=== PATIENT | female | born 1960 | race Two or more races ===

== ENCOUNTER 2021-09-07 22:38 | Inpatient (IN) | payer OTHER, SELFPAY ==
[2021-09-07 23:45] VITALS: BP 136/74; PULSE 71; RESP 18; TEMP 36.4; O2SAT 97
--- NOTE | 2021-09-08 02:52 | PC.ADMIT ---
Patient was transferred from [facility]. Section 12a documentation states patient was hearing voices to kill herself and was walking into traffic. During admission interview patient denied walking into traffic, stated she had been hearing voices, but not with any commands. She further stated her depression and hopelessness derived from her spouse very recently passing. She further stated she was not currently experiencing AH, nor had the desire to kill herself anymore. Patient states now that she is somewhere that can help her, she is ready to move forward. She was cooperative and pleasant during the interview process. No other information is available at the time of this RN transcribing this note.
[2021-09-08 06:00] VITALS: BP 139/78; PULSE 74; RESP 18; TEMP 36.3; O2SAT 97
[2021-09-08 08:07] LABS: Alanine Aminotransferase 70 U/L (0-31); Albumin Level 4.3 g/dL (3.5-5.0); Alkaline Phosphatase 61 U/L (39-117); Anion Gap 16 (12-20); Aspartate Amino Transferase 52 U/L (5-31); Bilirubin Total 0.5 mg/dL (0.0-1.0); Blood Urea Nitrogen 30 mg/dL (9-16); Calcium 10.3 mg/dL (8.4-10.2); Carbon Dioxide 27 mmol/L (22-29); Chloride 99 mmol/L (96-108); Cholesterol 171 mg/dL; Estimated Glomerular Filt Rate 43; Glucose Fasting 103 mg/dL (60-99); HDL Cholesterol 49 mg/dL; LDL Cholesterol Calculated 80 mg/dl; Potassium 3.8 mmol/L (3.3-5.1); Sodium 138 mmol/L (135-145); Total Protein 7.7 g/dL (6.5-8.0); Triglycerides 210 mg/dL
[2021-09-08] MEDS: Omeprazole 20 MG CAPSULE.DR PO (10:41)
[2021-09-08] MEDS: lisinopriL 20 MG TABLET PO (10:41)
[2021-09-08] MEDS: Levothyroxine Sodium 50 MCG TABLET PO (10:41)
[2021-09-08] MEDS: metFORMIN HCl ER 750 MG TAB.ER.24H PO (10:44)
[2021-09-08] MEDS: Propranolol HCL LA 60 MG CAP.SA.24H PO (10:44)
[2021-09-08] MEDS: hydroCHLOROthiazide 25 MG TABLET PO (10:44)
[2021-09-08 10:45] VITALS: BP 127/75; PULSE 82
[2021-09-08] MEDS: OLANZapine ODT 10 MG TAB.RAPDIS TRANSLINGU (12:17)
[2021-09-08] MEDS: LORazepam 1 MG TABLET PO (13:56)
[2021-09-08 16:35] VITALS: BP 122/68; PULSE 69
--- NOTE | 2021-09-08 16:38 | P.HPPS_ITS ---
HPI Date of Service: 09/08/21 Chief Complaint: psychosis,suicisality - reportedly ran into oncom Sources of Information: patient interviewed, chart reviewed and crisis/core team assessment reviewed HPI Subjective Notes: Conditional Voluntary Healthcare Proxy: No Guardianship: No Medical Problems Affecting Mental Status: No Narrative: 61 yo female presents with agitation and threats to family to run into traffic. It is reported she attempted to do this and was restrained by the family. Pt reports hearing voices to suicide and not telling her therapist this. Met with pt today who reports voices are instructing her to suicide and she feels trapped here and wanting to run. Reports symptoms have been present for 3-4 weeks, when was ill and in hospital. She has been more forgetful, anxious, isolated and nervous- I feel lost , I feel stuck, mostly trapped . Reports sleep is poor, appetite is intact. Pt and family report that her on September 03. Family asks that pt be treated so she may attend husbands on Sunday 09/10. Pt placed on five minute checks and medications adjusted today. Per daughter's report to crisis pt has told family she cannot tolerate going to the and cannot control herself. Pt has not been taking her medications as directed and at times gets physically combative with the family when they attempt to assist her. Past Psychiatric History: IP: This is the first [facility]; Hx of [place] ~4 years ago with transfer to [place] OP: New referral to [facility]. Also, CHD SA: Denies Medical Evaluation Reviewed: Yes [facility] Medical History (Updated 09/08/21 @ 17:14 by Lu Kincaid, CONTENT STRATEGIST) Severe recurrent major depression w/psychotic features, mood-congruent Narrative: GERD HTN Graves Disease High Cholesterol Hyperthyroidism Psoriasis Diabetes Type II Mammogram-Hx L microcalcifications, right breast fibroademoma Headaches Vitamin D deficiency Narrative: Pt denies Family History: Denies Social History: Raised by parents in [place]. 13 siblings, 7 have , 3 sisters 3 brothers living To [place] age [age] years. on 09/03/21. Hx of one year of college-education major. 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 Substance History: Denies Trauma History: Denies Diagnostics Vital Signs (24Hr): Vital Signs - 24 hr 09/07/21 23:45 09/08/21 06:00 09/08/21 10:45 Temperature 97.6 F 97.4 F Pulse Rate 71 74 82 Respiratory Rate 18 18 Blood Pressure 136/74 139/78 127/75 Pulse Oximetry 97 97 09/08/21 16:35 Temperature Pulse Rate 69 Respiratory Rate Blood Pressure 122/68 Pulse Oximetry Labs Results: 09/08/21 07:28 Labs: Laboratory Results - last 48 hr 09/08/21 07:28 Sodium 138 Potassium 3.8 Chloride 99 Carbon Dioxide 27 Anion Gap 16 BUN 30 H Creatinine 1.26 Estim Creat Clear Calc TNP Estimated GFR 43 Fasting Glucose 103 H Calcium 10.3 H Total Bilirubin 0.5 AST 52 H ALT 70 H Alkaline Phosphatase 61 Total Protein 7.7 Albumin 4.3 Triglycerides 210 Cholesterol 171 LDL Cholesterol, Calc 80 HDL Cholesterol 49 Meds/Allergies Meds Home Medications Acetaminophen (Acetaminophen 325 Mg Tablet) 650 mg PO Q6H PRN PRN Reason: Pain, Mild (Pain Scale 1-3) Amitriptyline HCl (Amitriptyline Hcl 50 Mg Tablet) 50 mg PO BEDTIME [facility] Atorvastatin Calcium (Atorvastatin Calcium 20 Mg Tablet) 20 mg PO BEDTIME [facility] Benztropine Mesylate (Benztropine Mesylate 1 Mg Tablet) 1 mg PO BEDTIME [facility] Hydrochlorothiazide (Hydrochlorothiazide 25 Mg Tablet) 25 mg PO DAILY [facility] Last Admin: 09/08/21 10:44 Dose: 25 mg Documented by: Hydroxyzine HCl (Hydroxyzine Hcl 50 Mg Tablet) 50 mg PO Q8H PRN PRN Reason: Anxiety Levothyroxine Sodium (Levothyroxine Sodium 50 Mcg Tablet) 50 mcg PO DAILY@0600 [facility] Last Admin: 09/08/21 10:41 Dose: 50 mcg Documented by: Lisinopril (Lisinopril 20 Mg Tablet) 20 mg PO DAILY [facility]; Protocol Last Admin: 09/08/21 10:41 Dose: 20 mg Documented by: Lorazepam (Lorazepam 1 Mg Tablet) 1 mg PO TID PRN PRN Reason: anxiety, agitation Last Admin: 09/08/21 13:56 Dose: 1 mg Documented by: Melatonin (Melatonin 3 Mg Tablet) 9 mg PO BEDTIME PRN PRN Reason: Insomnia Metformin HCl (Metformin Hcl Er 750 Mg Tab.Er.24h) 750 mg PO DAILY [facility] Last Admin: 09/08/21 10:44 Dose: 750 mg Documented by: Omeprazole (Omeprazole 20 Mg Capsule.Dr) 20 mg PO DAILY@0630 [facility] Last Admin: 09/08/21 10:41 Dose: 20 mg Documented by: Propranolol HCl (Propranolol Hcl La 60 Mg Cap.Sa.24h) 60 mg PO DAILY [facility]; Protocol Last Admin: 09/08/21 10:44 Dose: 60 mg Documented by: Risperidone (Risperidone 2 Mg Tablet) 2 mg PO BEDTIME [facility] Allergies Allergies Allergy/AdvReac Type Severity Reaction Status Date / Time No Known Allergies Allergy Verified 09/07/21 14:51 Mental Status Exam Mental Status Exam Patient Appearance: Fatigued and Appropriate Patient Orientation: Person, Place and Situation Level of Consciousness: Restless and Alert Patient Behavior: Guarded, Talkative, Cooperative, Suspicious, Restless, Wandering, Anxious, Fatigued, Distractible, Confused, Isolative, Good Eye Contact and Impulsive Mood Description: Suspicious, Withdrawn, Constricted, Fearful, Anxious, Labile, Sad, Nervous and Apprehensive Affect Description: Labile Patient Cognition Impaired: Yes Ability to Follow Directions: Fair Speech Pattern: Clear (requires an urologist), Perseverating, Spontaneous Speech, Soft-Spoken, Delayed and Long Pauses Memory Description: Remote Impaired Hallucinations: Auditory and Command Delusions: Being Controlled, Paranoid Ideation and Present Perceptual Disturbances: Depersonalization, Derealization and Hallucinations Thought Process: Distracted, Rumination and Confusion Thought Content: positive for [place], positive for Circumstantial, positive for Perseveration, positive for Preoccupation, positive for Thought Blocking and positive for Suicidal Ideation Depressive Symptoms: Increased Anxiety, Insomnia, Diff. Making Decisions, Loss of Int. in Activity, Hopelessness, Unhappiness, Increased Fatigue, Thoughts of /Suicide, Loss of Energy and Difficulty Concentrating Abnormal Motor Activity Signs and Symptoms: Restlessness Judgement: Poor Assessment & Plan Assessment & Plan (1) Severe recurrent major depression w/psychotic features, mood-congruent: Status: Acute Code(s): F33.3 - Major depressive disorder, recurrent, severe with psychotic symptoms Plan 61 yo female, transfer from [facility] for increase in sx of psychosis-command voiced telling her to run into traffic with attempts reported by family to crisis team. Per family, pt off meds ~1 month as she ran out of prescriptions. Pt reports voices are still active and she still is being told to suicide. on September 03 and family wants pt treated so she may attend on 09/10. Discussed with family that pt is currently exhibiting acute psychotic sx with SI and we may need to rethink discharge on 09/10. Discussed helping pt to attend via zoom or face time. Family is willing to work with team on this. Plan: Continue current regime with the following changes. -Olanzapine 10 mg x 1 dose -Increase Risperdal to 2 mg HS -Lorazepam 1 mg tid prn anxiety -Labs: Vit D, A1C, B12, Folate, TSH -EKG -Continue to monitor sx, response to treatment Patient educated on: medication risk/benefits and therapeutic strategies Informed Consent: further education needed Reason for continued inpatient stay Substantial Risk for: harm to self, inability to function and rapid decompensation
[2021-09-08] MEDS: Atorvastatin Calcium 20 MG TABLET PO (20:16)
[2021-09-08] MEDS: Benztropine Mesylate 1 MG TABLET PO (20:16)
[2021-09-08] MEDS: Amitriptyline HCl 50 MG TABLET PO (20:16)
[2021-09-08] MEDS: Melatonin 3 MG TABLET 9 MG PO (20:17)
[2021-09-08] MEDS: risperiDONE 2 MG TABLET PO (20:17)
[2021-09-09] MEDS: Levothyroxine Sodium 50 MCG TABLET PO (06:15)
[2021-09-09] MEDS: Omeprazole 20 MG CAPSULE.DR PO (06:16)
[2021-09-09 08:01] LABS: Estimated Average Glucose 120 mg/dL; Hemoglobin A1c % 5.8 %
[2021-09-09 08:26] LABS: Thyroid Stimulating Hormone 7.84 uIU/mL (0.32-4.0)
[2021-09-09] MEDS: LORazepam 1 MG TABLET PO (09:10)
[2021-09-09] MEDS: lisinopriL 20 MG TABLET PO (09:10)
[2021-09-09 09:11] VITALS: BP 155/92; PULSE 131; RESP 18; TEMP 36.5; O2SAT 97
[2021-09-09] MEDS: Propranolol HCL LA 60 MG CAP.SA.24H PO (09:11)
[2021-09-09] MEDS: metFORMIN HCl ER 750 MG TAB.ER.24H PO (09:11)
[2021-09-09] MEDS: hydroCHLOROthiazide 25 MG TABLET PO (09:11)
--- NOTE | 2021-09-09 11:09 | P.CONHOSP_ITS ---
History of Present Illness Data of Consult Service Date: 09/09/21 Primary Care Provider: Shikha Jeronimo MD HPI 61 yo female with multiple medical history including hypothyroidism, DM, HLD, and depression who is currently admitted to the inpatient Psych unit for depression with threat to run into traffic. It is reported she attempted to do this and was restrained by the family. Pt reports hearing voices to suicide and not telling her therapist this. I should note that she is greiving her who just 5 days ago. She was cooperativ with my assessment and voices no acute medical issues. Review of Systems Review of Systems: Gen: no fever Resp: no sob, no cough CV: no chest, no GILL, no leg edema GI: No n/v, no abd pain Neuro: No confusion Psych: depressed, no SI Yes all other systems are reviewed and are negative [facility] Medical History (Updated 09/09/21 @ 11:58 by Slava Rodriguez MD) Diabetes GERD (gastroesophageal reflux disease) HLD (hyperlipidemia) HTN (hypertension) Hypothyroidism Severe recurrent major depression w/psychotic features, mood-congruent Family History (Updated 09/09/21 @ 11:59 by Slaav Rodriguez MD) Other HTN (hypertension) Social History Household Members: Children Housing: House Do you presently have visiting nurse or other home services: No Patient Tobacco Use Status: Never used Tobacco Smoked in Last 30 Days: No e-Cigarette/Vaping Use: Never Used Patient Interested in Nicotine Replacement: No Patient Given Instructions on How to Stop Smoking: No Second Hand Smoke Exposure: No Use of substances other than those prescribed or required for medical reasons: No Currently Displaying Signs/Symptoms of Drug Intoxication Withdrawal: No Have you been hit, kicked, punched, or otherwise hurt by someone within the past year? If so, by whom?: No Do you feel safe in your current relationship?: Yes Is there a partner from a previous relationship who is making you feel unsafe now?: No Are you made to feel afraid or neglected: No Evangelical Healthcare Practices: [employer] Advance Directives: No Advance Directives Information Provided: No Do you have thoughts of harming others: None Do you have a plan to hurt others: No Plan Recently lost weight without trying: No Eating poorly because of decreased appetite: No Nutrition Risks: No Nutritional Risk Meds Allergies Allergy/AdvReac Type Severity Reaction Status Date / Time No Known Allergies Allergy Verified 09/07/21 14:51 Active Medications: Current Medications Acetaminophen (Acetaminophen 325 Mg Tablet) 650 mg PO Q6H PRN PRN Reason: Pain, Mild (Pain Scale 1-3) Amitriptyline HCl (Amitriptyline Hcl 50 Mg Tablet) 50 mg PO BEDTIME [facility] Last Admin: 09/08/21 20:16 Dose: 50 mg Documented by: Atorvastatin Calcium (Atorvastatin Calcium 20 Mg Tablet) 20 mg PO BEDTIME [facility] Last Admin: 09/08/21 20:16 Dose: 20 mg Documented by: Benztropine Mesylate (Benztropine Mesylate 1 Mg Tablet) 1 mg PO BEDTIME [facility] Last Admin: 09/08/21 20:16 Dose: 1 mg Documented by: Hydrochlorothiazide (Hydrochlorothiazide 25 Mg Tablet) 25 mg PO DAILY [facility] Last Admin: 09/09/21 09:11 Dose: 25 mg Documented by: Hydroxyzine HCl (Hydroxyzine Hcl 50 Mg Tablet) 50 mg PO Q8H PRN PRN Reason: Anxiety Levothyroxine Sodium (Levothyroxine Sodium 50 Mcg Tablet) 50 mcg PO DAILY@0600 [facility] Last Admin: 09/09/21 06:15 Dose: 50 mcg Documented by: Lisinopril (Lisinopril 20 Mg Tablet) 20 mg PO DAILY [facility]; Protocol Last Admin: 09/09/21 09:10 Dose: 20 mg Documented by: Lorazepam (Lorazepam 1 Mg Tablet) 1 mg PO TID PRN PRN Reason: anxiety, agitation Last Admin: 09/09/21 09:10 Dose: 1 mg Documented by: Melatonin (Melatonin 3 Mg Tablet) 9 mg PO BEDTIME PRN PRN Reason: Insomnia Last Admin: 09/08/21 20:17 Dose: 9 mg Documented by: Metformin HCl (Metformin Hcl Er 750 Mg Tab.Er.24h) 750 mg PO DAILY [facility] Last Admin: 09/09/21 09:11 Dose: 750 mg Documented by: Omeprazole (Omeprazole 20 Mg Capsule.Dr) 20 mg PO DAILY@0630 [facility] Last Admin: 09/09/21 06:16 Dose: 20 mg Documented by: Propranolol HCl (Propranolol Hcl La 60 Mg Cap.Sa.24h) 60 mg PO DAILY [facility]; Protocol Last Admin: 09/09/21 09:11 Dose: 60 mg Documented by: Risperidone (Risperidone 2 Mg Tablet) 2 mg PO BEDTIME [facility] Last Admin: 09/08/21 20:17 Dose: 2 mg Documented by: Home Medications Medication Instructions Recorded Confirmed Last Taken Type amitriptyline 50 mg tablet 50 mg PO BEDTIME 09/08/21 09/08/21 Unknown History benztropine 1 mg tablet 1 mg PO BEDTIME 09/08/21 09/08/21 Unknown History hydroxyzine HCl 50 mg tablet 50 mg PO TID PRN 09/08/21 09/08/21 Unknown History levothyroxine 50 mcg tablet 50 mcg PO DAILY 09/08/21 09/08/21 Unknown History lisinopril 20 1 tab PO DAILY 09/08/21 09/08/21 Unknown History mg-hydrochlorothiazide 25 mg tablet metformin 750 mg tablet,extended 750 mg PO DAILY 09/08/21 09/08/21 Unknown History release 24 hr omeprazole 20 mg capsule,delayed 20 mg PO DAILY 09/08/21 09/08/21 Unknown History release propranolol 60 mg capsule,24 60 mg PO DAILY 09/08/21 09/08/21 Unknown History hr,extended release risperidone 1 mg tablet (Risperdal) 1 mg PO BEDTIME 09/08/21 09/08/21 Unknown History simvastatin 20 mg tablet 20 mg PO BEDTIME 09/08/21 09/08/21 Unknown History Physical Exam Vital Signs and Narrative: Vital Signs: Last Vital Signs Temp 97.7 F 09/09/21 09:11 Pulse 131 H 09/09/21 09:11 Resp 18 09/09/21 09:11 BP 155/92 H 09/09/21 09:11 Pulse Ox 97 09/09/21 09:11 Const: Other: Constitutional: Alert, in no distress, Mental Status: Oriented to person, place and time. Eyes: Pupils are equal, Ear, Nose and Throat: Ears and nose without eformities. Trachea midline. Respiratory: Clear to auscultation. No wheezing, rales or rhonchi. Cardiovascular: S1 S2 regular. No murmurs, rubs or gallops. Gastrointestinal: Abdomen soft, non-tender, non-distended. Normal bowel sounds.? Neurologic: Cranial nerves II-XII grossly intact. No focal neurological deficits. Moves all extremities spontaneously.? Skin: No rashes or lesions.? Musculoskeletal: No cyanosis or clubbing. Psychiatric: depressed mood Results Labs CBC and Chem 7: 09/08/21 07:28 Labs: Laboratory Results - last 24 hr 09/09/21 09/09/21 07:36 07:36 Estimat Average Glucose 120 Hemoglobin A1c % 5.8 TSH 7.84 H Assessment and Plan (1) HLD (hyperlipidemia): Status: Acute (2) GERD (gastroesophageal reflux disease): Status: Acute (3) Diabetes: Status: Acute (4) HTN (hypertension): Status: Acute (5) Severe recurrent major depression w/psychotic features, mood-congruent: Status: Acute Plan 61/F with HTN, HLD, diabetes, hypothyroidism and depression who is admitted to inpatient Psych due to depression with threat of self harm HTN--continue Lisinopril, Proprnolol and HCTZ Diabetes--continue Metfromin and SSI HLD--continue Lipitor Hypothyroidism--continue Levothryoxine, TSH is 7 check FT4 GERD--Omeprazole Depression--management per Psych Thanks for the consult, contact us for additional question, follow on PRN basis
[2021-09-09 11:55] LABS: Free T4 (Free Thyroxine) 1.09 ng/dL (0.71-1.85)
--- NOTE | 2021-09-09 15:36 | P.PNPSI_ITS ---
Subjective Subjective Date of Service: 09/09/21 Reason For Visit: psychosis,suicidality Healthcare Proxy: Yes Guardianship: No Medical Problems Affecting Mental Status: No Interim History: Lability, anger, confusion-wanting to harm others, wanting to harm room-mate. Met with pt, Baldemar Daily RN, nephew Betito. Pt is not feeling able to attend or observe 's on 09/10. Family will video tape the ceremony and it will be available in the future should she want to review it. Discussed with daughter who is accepting of her mother's decision. Pt feeling lost. She has been off meds for ~1 month as OP team put in a new computer system and pt did not get her refills. Medication Compliance: Yes Side effects from medications: No Attending Groups: No Review of Systems Acute medical concerns: No Medical Review of Systems: unchanged Mental Status Exam Mental Status Exam Patient Appearance: Fatigued and Appropriate Patient Orientation: Person, Place and Situation Level of Consciousness: Restless and Alert Patient Behavior: Guarded, Talkative, Cooperative, Suspicious, Restless, Wandering, Anxious, Fatigued, Distractible, Confused, Isolative, Good Eye Contact and Impulsive Mood Description: Suspicious, Withdrawn, Constricted, Fearful, Anxious, Labile, Sad, Nervous and Apprehensive Affect Description: Labile Patient Cognition Impaired: Yes Ability to Follow Directions: Fair Speech Pattern: Clear (requires an baker biscuit), Perseverating, Spontaneous Speech, Soft-Spoken, Delayed and Long Pauses Memory Description: Remote Impaired Hallucinations: Auditory and Command Delusions: Being Controlled, Paranoid Ideation and Present Perceptual Disturbances: Depersonalization, Derealization and Hallucinations Thought Process: Distracted, Rumination and Confusion Thought Content: positive for [place], positive for Circumstantial, positive for Perseveration, positive for Preoccupation, positive for Thought Blocking and positive for Suicidal Ideation Depressive Symptoms: Increased Anxiety, Insomnia, Diff. Making Decisions, Loss of Int. in Activity, Hopelessness, Unhappiness, Increased Fatigue, Thoughts of /Suicide, Loss of Energy and Difficulty Concentrating Abnormal Motor Activity Signs and Symptoms: Restlessness Judgement: Poor Diagnostics Vital Signs (24Hr): Vital Signs - 24 hr 09/08/21 16:35 09/09/21 09:11 Temperature 97.7 F Pulse Rate 69 131 H Respiratory Rate 18 Blood Pressure 122/68 155/92 H Pulse Oximetry 97 Labs Results: 09/08/21 07:28 Labs: Laboratory Results - last 48 hr 09/08/21 09/09/21 09/09/21 07:28 07:36 07:36 Sodium 138 Potassium 3.8 Chloride 99 Carbon Dioxide 27 Anion Gap 16 BUN 30 H Creatinine 1.26 Estim Creat Clear Calc TNP Estimated GFR 43 Fasting Glucose 103 H Estimat Average Glucose 120 Hemoglobin A1c % 5.8 Calcium 10.3 H Total Bilirubin 0.5 AST 52 H ALT 70 H Alkaline Phosphatase 61 Total Protein 7.7 Albumin 4.3 Triglycerides 210 Cholesterol 171 LDL Cholesterol, Calc 80 HDL Cholesterol 49 TSH 7.84 H Free T4 1.09 Medications Medications Current Medications Acetaminophen (Acetaminophen 325 Mg Tablet) 650 mg PO Q6H PRN PRN Reason: Pain, Mild (Pain Scale 1-3) Amitriptyline HCl (Amitriptyline Hcl 50 Mg Tablet) 50 mg PO BEDTIME [facility] Last Admin: 09/08/21 20:16 Dose: 50 mg Documented by: Atorvastatin Calcium (Atorvastatin Calcium 20 Mg Tablet) 20 mg PO BEDTIME [facility] Last Admin: 09/08/21 20:16 Dose: 20 mg Documented by: Benztropine Mesylate (Benztropine Mesylate 1 Mg Tablet) 1 mg PO BEDTIME [facility] Last Admin: 09/08/21 20:16 Dose: 1 mg Documented by: Hydrochlorothiazide (Hydrochlorothiazide 25 Mg Tablet) 25 mg PO DAILY [facility] Last Admin: 09/09/21 09:11 Dose: 25 mg Documented by: Hydroxyzine HCl (Hydroxyzine Hcl 50 Mg Tablet) 50 mg PO Q8H PRN PRN Reason: Anxiety Levothyroxine Sodium (Levothyroxine Sodium 50 Mcg Tablet) 50 mcg PO DAILY@0600 [facility] Last Admin: 09/09/21 06:15 Dose: 50 mcg Documented by: Lisinopril (Lisinopril 20 Mg Tablet) 20 mg PO DAILY [facility]; Protocol Last Admin: 09/09/21 09:10 Dose: 20 mg Documented by: Lorazepam (Lorazepam 1 Mg Tablet) 1 mg PO TID PRN PRN Reason: anxiety, agitation Last Admin: 09/09/21 09:10 Dose: 1 mg Documented by: Melatonin (Melatonin 3 Mg Tablet) 9 mg PO BEDTIME PRN PRN Reason: Insomnia Last Admin: 09/08/21 20:17 Dose: 9 mg Documented by: Metformin HCl (Metformin Hcl Er 750 Mg Tab.Er.24h) 750 mg PO DAILY [facility] Last Admin: 09/09/21 09:11 Dose: 750 mg Documented by: Omeprazole (Omeprazole 20 Mg Capsule.Dr) 20 mg PO DAILY@0630 [facility] Last Admin: 09/09/21 06:16 Dose: 20 mg Documented by: Propranolol HCl (Propranolol Hcl La 60 Mg Cap.Sa.24h) 60 mg PO DAILY [facility]; Protocol Last Admin: 09/09/21 09:11 Dose: 60 mg Documented by: Risperidone (Risperidone 2 Mg Tablet) 2 mg PO BEDTIME [facility] Last Admin: 09/08/21 20:17 Dose: 2 mg Documented by: Allergies Allergies Allergy/AdvReac Type Severity Reaction Status Date / Time No Known Allergies Allergy Verified 09/07/21 14:51 Assessment & Plan Assessment & Plan (1) HLD (hyperlipidemia): Status: Acute Code(s): E78.5 - Hyperlipidemia, unspecified (2) GERD (gastroesophageal reflux disease): Status: Acute Code(s): K21.9 - Gastro-esophageal reflux disease without esophagitis (3) Diabetes: Status: Acute Code(s): E11.9 - Type 2 diabetes mellitus without complications (4) HTN (hypertension): Status: Acute Code(s): I10 - Essential (primary) hypertension (5) Severe recurrent major depression w/psychotic features, mood-congruent: Status: Acute Code(s): F33.3 - Major depressive disorder, recurrent, severe with psychotic symptoms Plan 61/F with HTN, HLD, diabetes, hypothyroidism and depression who is admitted to inpatient Psych due to depression with threat of self harm HTN--continue Lisinopril, Proprnolol and HCTZ Diabetes--continue Metfromin and SSI HLD--continue Lipitor Hypothyroidism--continue Levothryoxine, TSH is 7 check FT4 GERD--Omeprazole Depression--management per Psych Thanks for the consult, contact us for additional question, follow on PRN basis 09/09/21- continue current regime, continue to monitor. I spent minutes with the patient and/or on the patient floor today, greater than?50% of which was spent counseling/coordinating care. Patient educated on: therapeutic strategies Informed Consent: further education needed Reason for contiued inpatient stay Substantial Risk for: harm to self, harm to others, inability to function, rapid decompensation and med/psych decompensation
[2021-09-09 18:00] VITALS: BP 130/65; PULSE 70; TEMP 37.1
[2021-09-09] MEDS: Amitriptyline HCl 50 MG TABLET PO (21:44)
[2021-09-09] MEDS: risperiDONE 2 MG TABLET PO (21:44)
[2021-09-09] MEDS: Atorvastatin Calcium 20 MG TABLET PO (21:44)
[2021-09-09] MEDS: Melatonin 3 MG TABLET 9 MG PO (21:44)
[2021-09-09] MEDS: Benztropine Mesylate 1 MG TABLET PO (21:44)
[2021-09-09 23:44] LABS: Vitamin D 25-OH Total 33.4 ng/mL (>30)
[2021-09-10] MEDS: LORazepam 1 MG TABLET PO ×3 (01:16→21:01)
[2021-09-10] MEDS: Levothyroxine Sodium 50 MCG TABLET PO (06:49)
[2021-09-10] MEDS: Omeprazole 20 MG CAPSULE.DR PO (06:49)
[2021-09-10 08:08] LABS: Folate 7.7 ng/mL (> or = 4.0); Vitamin B12 199 pg/mL (200-900)
[2021-09-10] MEDS: lisinopriL 20 MG TABLET PO (08:31)
[2021-09-10] MEDS: Propranolol HCL LA 60 MG CAP.SA.24H PO (08:31)
[2021-09-10] MEDS: hydroCHLOROthiazide 25 MG TABLET PO (08:31)
[2021-09-10] MEDS: metFORMIN HCl ER 750 MG TAB.ER.24H PO (08:31)
[2021-09-10 08:34] VITALS: BP 150/70; PULSE 81; RESP 18; TEMP 36.9; O2SAT 100
[2021-09-10 18:00] VITALS: BP 122/84; PULSE 98; RESP 18; TEMP 36.2; O2SAT 100
--- NOTE | 2021-09-10 19:27 | P.PNPSI_ITS ---
Subjective Subjective Date of Service: 09/10/21 Reason For Visit: psychosis,suicidality Subjective Notes: Conditional Voluntary Healthcare Proxy: Yes Guardianship: No Medical Problems Affecting Mental Status: No Interim History: Visable in milieu. Working on word search puzzles. Calm, grieving. Family in this a.m. to assist her in getting dressed. They styled her hair in [place]. She has received several compliments where she smiles and is teary at times. Reports feeling overwhelmed, not knowing what to do. Responsive to support. Medication Compliance: Yes Side effects from medications: No Attending Groups: Intermittent Review of Systems Acute medical concerns: No Medical Review of Systems: unchanged Mental Status Exam Mental Status Exam Patient Appearance: Appropriate Patient Orientation: Person, Place, Time and Situation Level of Consciousness: Alert Patient Behavior: Appropriate and Good Eye Contact Mood Description: Depressed Affect Description: Flat Patient Cognition Impaired: No Ability to Follow Directions: Good Speech Pattern: Spontaneous Speech Memory Description: Intact Hallucinations: None Delusions: Not Present and Paranoid Ideation (mild) Perceptual Disturbances: Depersonalization and Derealization Thought Process: Rumination Thought Content: positive for Perseveration Depressive Symptoms: Diff. Making Decisions, Crying Spells, Unhappiness, Loss of Energy and Difficulty Concentrating Judgement: Fair Diagnostics Vital Signs (24Hr): Vital Signs - 24 hr 09/10/21 08:34 Temperature 98.5 F Pulse Rate 81 Respiratory Rate 18 Blood Pressure 150/70 H Pulse Oximetry 100 Labs Results: 09/08/21 07:28 Labs: Laboratory Results - last 48 hr 09/09/21 09/09/21 09/09/21 07:36 07:36 07:36 Estimat Average Glucose 120 Hemoglobin A1c % 5.8 Vitamin B12 199 L 25-OH Vitamin D Total 33.4 Folate 7.7 TSH 7.84 H Free T4 1.09 Medications Medications Current Medications Acetaminophen (Acetaminophen 325 Mg Tablet) 650 mg PO Q6H PRN PRN Reason: Pain, Mild (Pain Scale 1-3) Amitriptyline HCl (Amitriptyline Hcl 50 Mg Tablet) 50 mg PO BEDTIME [facility] Last Admin: 09/09/21 21:44 Dose: 50 mg Documented by: Atorvastatin Calcium (Atorvastatin Calcium 20 Mg Tablet) 20 mg PO BEDTIME [facility] Last Admin: 09/09/21 21:44 Dose: 20 mg Documented by: Benztropine Mesylate (Benztropine Mesylate 1 Mg Tablet) 1 mg PO BEDTIME [facility] Last Admin: 09/09/21 21:44 Dose: 1 mg Documented by: Hydrochlorothiazide (Hydrochlorothiazide 25 Mg Tablet) 25 mg PO DAILY [facility] Last Admin: 09/10/21 08:31 Dose: 25 mg Documented by: Hydroxyzine HCl (Hydroxyzine Hcl 50 Mg Tablet) 50 mg PO Q8H PRN PRN Reason: Anxiety Levothyroxine Sodium (Levothyroxine Sodium 50 Mcg Tablet) 50 mcg PO DAILY@0600 [facility] Last Admin: 09/10/21 06:49 Dose: 50 mcg Documented by: Lisinopril (Lisinopril 20 Mg Tablet) 20 mg PO DAILY [facility]; Protocol Last Admin: 09/10/21 08:31 Dose: 20 mg Documented by: Lorazepam (Lorazepam 1 Mg Tablet) 1 mg PO TID PRN PRN Reason: anxiety, agitation Last Admin: 09/10/21 14:10 Dose: 1 mg Documented by: Melatonin (Melatonin 3 Mg Tablet) 9 mg PO BEDTIME PRN PRN Reason: Insomnia Last Admin: 09/09/21 21:44 Dose: 9 mg Documented by: Metformin HCl (Metformin Hcl Er 750 Mg Tab.Er.24h) 750 mg PO DAILY [facility] Last Admin: 09/10/21 08:31 Dose: 750 mg Documented by: Omeprazole (Omeprazole 20 Mg Capsule.Dr) 20 mg PO DAILY@0630 [facility] Last Admin: 09/10/21 06:49 Dose: 20 mg Documented by: Propranolol HCl (Propranolol Hcl La 60 Mg Cap.Sa.24h) 60 mg PO DAILY [facility]; Protocol Last Admin: 09/10/21 08:31 Dose: 60 mg Documented by: Risperidone (Risperidone 2 Mg Tablet) 2 mg PO BEDTIME [facility] Last Admin: 09/09/21 21:44 Dose: 2 mg Documented by: Allergies Allergies Allergy/AdvReac Type Severity Reaction Status Date / Time No Known Allergies Allergy Verified 09/07/21 14:51 Assessment & Plan Assessment & Plan (1) HLD (hyperlipidemia): Status: Acute Code(s): E78.5 - Hyperlipidemia, unspecified (2) GERD (gastroesophageal reflux disease): Status: Acute Code(s): K21.9 - Gastro-esophageal reflux disease without esophagitis (3) Diabetes: Status: Acute Code(s): E11.9 - Type 2 diabetes mellitus without complications (4) HTN (hypertension): Status: Acute Code(s): I10 - Essential (primary) hypertension (5) Severe recurrent major depression w/psychotic features, mood-congruent: Status: Acute Code(s): F33.3 - Major depressive disorder, recurrent, severe with psychotic symptoms Plan 61/F with HTN, HLD, diabetes, hypothyroidism and depression who is admitted to inpatient Psych due to depression with threat of self harm HTN--continue Lisinopril, Proprnolol and HCTZ Diabetes--continue Metfromin and SSI HLD--continue Lipitor Hypothyroidism--continue Levothryoxine, TSH is 7 check FT4 GERD--Omeprazole Depression--management per Psych Thanks for the consult, contact us for additional question, follow on PRN basis 09/09/21- continue current regime, continue to monitor. 09/10/21- Continue to re-establish regime, support through recent loss, encourage family connections. I spent minutes with the patient and/or on the patient floor today, greater than?50% of which was spent counseling/coordinating care. Informed Consent: understands Reason for contiued inpatient stay Substantial Risk for: harm to self, harm to others, inability to function, rapid decompensation and med/psych decompensation
[2021-09-10] MEDS: Benztropine Mesylate 1 MG TABLET PO (21:02)
[2021-09-10] MEDS: Melatonin 3 MG TABLET 9 MG PO (21:02)
[2021-09-10] MEDS: Amitriptyline HCl 50 MG TABLET PO (21:02)
[2021-09-10] MEDS: Atorvastatin Calcium 20 MG TABLET PO (21:03)
[2021-09-10] MEDS: risperiDONE 2 MG TABLET PO (21:03)
[2021-09-11] MEDS: Levothyroxine Sodium 50 MCG TABLET PO (06:48)
[2021-09-11] MEDS: Omeprazole 20 MG CAPSULE.DR PO (06:48)
[2021-09-11 07:26] LABS: Glucose, Whole Blood 90 mg/dL (60-115)
[2021-09-11 08:30] VITALS: BP 131/72; PULSE 79; TEMP 35.8
[2021-09-11] MEDS: Propranolol HCL LA 60 MG CAP.SA.24H PO (09:15)
[2021-09-11] MEDS: lisinopriL 20 MG TABLET PO (09:15)
[2021-09-11] MEDS: hydroCHLOROthiazide 25 MG TABLET PO (09:15)
[2021-09-11] MEDS: metFORMIN HCl ER 750 MG TAB.ER.24H PO (09:15)
[2021-09-11] MEDS: LORazepam 1 MG TABLET PO ×2 (14:42→21:27)
[2021-09-11 16:53] LABS: Glucose, Whole Blood 130 mg/dL (60-115)
--- NOTE | 2021-09-11 17:25 | P.PNPSI_ITS ---
Subjective Subjective Date of Service: 09/11/21 Reason For Visit: psychosis,suicidality Subjective Notes: Conditional Voluntary Healthcare Proxy: Yes Guardianship: No Medical Problems Affecting Mental Status: Yes (elevated tsh-off meds ~6 weeks, re-established on admission) Interim History: Sharmila has improved. She is less defended, less fearful, less paranoid. Describes herself as being lost , scared . What will I do now that I do not have my .? Attempting to structure her time between rest, groups, word searches, meeting with team and family. States she plans to attempt an art project tomorrow. This all seems so unreal. Discussed wanting to go to daughter Philip' home upon discharge as she believes it will be initially easier than going home to her other daughters home where she and lived. Tolerating medication re-introduction Medication Compliance: Yes Side effects from medications: No Attending Groups: Intermittent Review of Systems Acute medical concerns: No Medical Review of Systems: unchanged Review of Systems Psychiatric: Reports anxiety, Reports depression, Reports difficulty concentrating, Reports hopelessness, Reports anhedonia and Reports suicidal ideation (denies) Mental Status Exam Mental Status Exam Patient Appearance: Appropriate Patient Orientation: Person, Place, Time and Situation Level of Consciousness: Alert Patient Behavior: Talkative, Cooperative, Good Eye Contact and Crying Mood Description: Depressed and Sad Affect Description: Flat Patient Cognition Impaired: No Ability to Follow Directions: Good Speech Pattern: Spontaneous Speech Memory Description: Episodic Impaired Hallucinations: None Delusions: Not Present Perceptual Disturbances: Depersonalization and Derealization Thought Process: Rumination Thought Content: positive for Perseveration Depressive Symptoms: Crying Spells, Hopelessness, Unhappiness and Difficulty Concentrating Judgement: Fair Diagnostics Vital Signs (24Hr): Vital Signs - 24 hr 09/10/21 18:00 09/11/21 08:30 Temperature 97.1 F 96.5 F L Pulse Rate 98 79 Respiratory Rate 18 Blood Pressure 122/84 131/72 Pulse Oximetry 100 Labs Results: 09/08/21 07:28 Labs: Laboratory Results - last 48 hr 09/09/21 09/09/21 09/11/21 07:36 07:36 06:52 POC Glucose 90 Vitamin B12 199 L 25-OH Vitamin D Total 33.4 Folate 7.7 09/11/21 16:47 POC Glucose 130 H Vitamin B12 25-OH Vitamin D Total Folate Medications Medications Current Medications Acetaminophen (Acetaminophen 325 Mg Tablet) 650 mg PO Q6H PRN PRN Reason: Pain, Mild (Pain Scale 1-3) Amitriptyline HCl (Amitriptyline Hcl 50 Mg Tablet) 50 mg PO BEDTIME [facility] Last Admin: 09/10/21 21:02 Dose: 50 mg Documented by: Atorvastatin Calcium (Atorvastatin Calcium 20 Mg Tablet) 20 mg PO BEDTIME [facility] Last Admin: 09/10/21 21:03 Dose: 20 mg Documented by: Benztropine Mesylate (Benztropine Mesylate 1 Mg Tablet) 1 mg PO BEDTIME [facility] Last Admin: 09/10/21 21:02 Dose: 1 mg Documented by: Hydrochlorothiazide (Hydrochlorothiazide 25 Mg Tablet) 25 mg PO DAILY [facility] Last Admin: 09/11/21 09:15 Dose: 25 mg Documented by: Hydroxyzine HCl (Hydroxyzine Hcl 50 Mg Tablet) 50 mg PO Q8H PRN PRN Reason: Anxiety Levothyroxine Sodium (Levothyroxine Sodium 50 Mcg Tablet) 50 mcg PO DAILY@0600 [facility] Last Admin: 09/11/21 06:48 Dose: 50 mcg Documented by: Lisinopril (Lisinopril 20 Mg Tablet) 20 mg PO DAILY [facility]; Protocol Last Admin: 09/11/21 09:15 Dose: 20 mg Documented by: Lorazepam (Lorazepam 1 Mg Tablet) 1 mg PO TID PRN PRN Reason: anxiety, agitation Last Admin: 09/11/21 14:42 Dose: 1 mg Documented by: Melatonin (Melatonin 3 Mg Tablet) 9 mg PO BEDTIME PRN PRN Reason: Insomnia Last Admin: 09/10/21 21:02 Dose: 9 mg Documented by: Metformin HCl (Metformin Hcl Er 750 Mg Tab.Er.24h) 750 mg PO DAILY [facility] Last Admin: 09/11/21 09:15 Dose: 750 mg Documented by: Omeprazole (Omeprazole 20 Mg Capsule.Dr) 20 mg PO DAILY@0630 [facility] Last Admin: 09/11/21 06:48 Dose: 20 mg Documented by: Propranolol HCl (Propranolol Hcl La 60 Mg Cap.Sa.24h) 60 mg PO DAILY [facility]; Protocol Last Admin: 09/11/21 09:15 Dose: 60 mg Documented by: Risperidone (Risperidone 2 Mg Tablet) 2 mg PO BEDTIME [facility] Last Admin: 09/10/21 21:03 Dose: 2 mg Documented by: Allergies Allergies Allergy/AdvReac Type Severity Reaction Status Date / Time No Known Allergies Allergy Verified 09/07/21 14:51 Assessment & Plan Assessment & Plan (1) HLD (hyperlipidemia): Status: Acute Code(s): E78.5 - Hyperlipidemia, unspecified (2) GERD (gastroesophageal reflux disease): Status: Acute Code(s): K21.9 - Gastro-esophageal reflux disease without esophagitis (3) Diabetes: Status: Acute Code(s): E11.9 - Type 2 diabetes mellitus without complications (4) HTN (hypertension): Status: Acute Code(s): I10 - Essential (primary) hypertension (5) Severe recurrent major depression w/psychotic features, mood-congruent: Status: Acute Code(s): F33.3 - Major depressive disorder, recurrent, severe with psychotic symptoms Plan 61/F with HTN, HLD, diabetes, hypothyroidism and depression who is admitted to inpatient Psych due to depression with threat of self harm HTN--continue Lisinopril, Proprnolol and HCTZ Diabetes--continue Metfromin and SSI HLD--continue Lipitor Hypothyroidism--continue Levothryoxine, TSH is 7 check FT4 GERD--Omeprazole Depression--management per Psych Thanks for the consult, contact us for additional question, follow on PRN basis 09/09/21- continue current regime, continue to monitor. 09/10/21- Continue to re-establish regime, support through recent loss, encourage family connections. 09/11/21- Improving, continute regime, support in transition back to her home and family. I spent minutes with the patient and/or on the patient floor today, greater than?50% of which was spent counseling/coordinating care. Patient educated on: medication risk/benefits Informed Consent: further education needed Reason for contiued inpatient stay Substantial Risk for: inability to function and rapid decompensation
[2021-09-11 18:00] VITALS: BP 124/72; PULSE 71; RESP 18; TEMP 37.4; O2SAT 100
[2021-09-11 20:34] LABS: Glucose, Whole Blood 125 mg/dL (60-115)
[2021-09-11] MEDS: Amitriptyline HCl 50 MG TABLET PO (21:25)
[2021-09-11] MEDS: Melatonin 3 MG TABLET 9 MG PO (21:25)
[2021-09-11] MEDS: risperiDONE 2 MG TABLET PO (21:25)
[2021-09-11] MEDS: Atorvastatin Calcium 20 MG TABLET PO (21:26)
[2021-09-11] MEDS: Benztropine Mesylate 1 MG TABLET PO (21:26)
[2021-09-12] MEDS: Levothyroxine Sodium 50 MCG TABLET PO (06:46)
[2021-09-12] MEDS: Omeprazole 20 MG CAPSULE.DR PO (06:47)
[2021-09-12 09:08] LABS: Glucose, Whole Blood 92 mg/dL (60-115)
[2021-09-12] MEDS: Propranolol HCL LA 60 MG CAP.SA.24H PO (09:37)
[2021-09-12] MEDS: hydroCHLOROthiazide 25 MG TABLET PO (09:37)
[2021-09-12] MEDS: metFORMIN HCl ER 750 MG TAB.ER.24H PO (09:37)
[2021-09-12] MEDS: lisinopriL 20 MG TABLET PO (09:37)
[2021-09-12 09:40] VITALS: BP 106/61; PULSE 85; RESP 18; TEMP 36.6; O2SAT 99
--- NOTE | 2021-09-12 16:14 | HO.PSYCHPN ---
Subjective Subjective Date of Service: 09/12/21 Reason For Visit: psychosis,suicidality Subjective Notes: Conditional Voluntary Healthcare Proxy: Yes Guardianship: No Medical Problems Affecting Mental Status: No Interim History: Tolerating medication re-titration. Grieving. Clear, alert, oriented, non-psychotic. Asking to go home. Has thought about what would be most helpful for her-she believes to stay with daughter Soheila and not return to the home where was yet. Pt and Soheila work together. Soheila is currently out of town and will return 09/13 when we will meet to discuss this as an option. Pt is improving, integrating what has occurred over the past few weeks. She is responding to support. Medication Compliance: Yes Side effects from medications: No Attending Groups: Intermittent Review of Systems Acute medical concerns: No Medical Review of Systems: unchanged Review of Systems Psychiatric: Reports anxiety, Reports depression, Reports difficulty concentrating and Reports suicidal ideation (denies) Mental Status Exam Mental Status Exam Patient Appearance: Appropriate Patient Orientation: Person, Place, Time and Situation Level of Consciousness: Alert Patient Behavior: Appropriate, Talkative, Good Eye Contact and Crying Mood Description: Depressed and Sad Affect Description: Flat Patient Cognition Impaired: No Ability to Follow Directions: Good Speech Pattern: Clear and Spontaneous Speech Memory Description: Intact Hallucinations: None Delusions: Not Present Thought Content: positive for Intact and positive for Suicidal Ideation (denies) Depressive Symptoms: Loss of Energy Judgement: Good Diagnostics Vital Signs (24Hr): Vital Signs - 24 hr 09/11/21 18:00 09/12/21 09:40 Temperature 99.3 F 97.8 F Pulse Rate 71 85 Respiratory Rate 18 18 Blood Pressure 124/72 106/61 Pulse Oximetry 100 99 Labs Results: 09/13/21 08:00 Labs: Laboratory Results - last 48 hr 09/11/21 09/11/21 09/11/21 06:52 16:47 20:29 POC Glucose 90 130 H 125 H 09/12/21 09:04 POC Glucose 92 Medications Medications Current Medications Acetaminophen (Acetaminophen 325 Mg Tablet) 650 mg PO Q6H PRN PRN Reason: Pain, Mild (Pain Scale 1-3) Amitriptyline HCl (Amitriptyline Hcl 50 Mg Tablet) 50 mg PO BEDTIME [facility] Last Admin: 09/11/21 21:25 Dose: 50 mg Documented by: Atorvastatin Calcium (Atorvastatin Calcium 20 Mg Tablet) 20 mg PO BEDTIME [facility] Last Admin: 09/11/21 21:26 Dose: 20 mg Documented by: Benztropine Mesylate (Benztropine Mesylate 1 Mg Tablet) 1 mg PO BEDTIME [facility] Last Admin: 09/11/21 21:26 Dose: 1 mg Documented by: Hydrochlorothiazide (Hydrochlorothiazide 25 Mg Tablet) 25 mg PO DAILY [facility] Last Admin: 09/12/21 09:37 Dose: 25 mg Documented by: Hydroxyzine HCl (Hydroxyzine Hcl 50 Mg Tablet) 50 mg PO Q8H PRN PRN Reason: Anxiety Levothyroxine Sodium (Levothyroxine Sodium 50 Mcg Tablet) 50 mcg PO DAILY@0600 [facility] Last Admin: 09/12/21 06:46 Dose: 50 mcg Documented by: Lisinopril (Lisinopril 20 Mg Tablet) 20 mg PO DAILY [facility]; Protocol Last Admin: 09/12/21 09:37 Dose: 20 mg Documented by: Lorazepam (Lorazepam 1 Mg Tablet) 1 mg PO TID PRN PRN Reason: anxiety, agitation Last Admin: 09/11/21 21:27 Dose: 1 mg Documented by: Melatonin (Melatonin 3 Mg Tablet) 9 mg PO BEDTIME PRN PRN Reason: Insomnia Last Admin: 09/11/21 21:25 Dose: 9 mg Documented by: Metformin HCl (Metformin Hcl Er 750 Mg Tab.Er.24h) 750 mg PO DAILY [facility] Last Admin: 09/12/21 09:37 Dose: 750 mg Documented by: Omeprazole (Omeprazole 20 Mg Capsule.Dr) 20 mg PO DAILY@0630 [facility] Last Admin: 09/12/21 06:47 Dose: 20 mg Documented by: Propranolol HCl (Propranolol Hcl La 60 Mg Cap.Sa.24h) 60 mg PO DAILY [facility]; Protocol Last Admin: 09/12/21 09:37 Dose: 60 mg Documented by: Risperidone (Risperidone 2 Mg Tablet) 2 mg PO BEDTIME [facility] Last Admin: 09/11/21 21:25 Dose: 2 mg Documented by: Allergies Allergies Allergy/AdvReac Type Severity Reaction Status Date / Time No Known Allergies Allergy Verified 09/07/21 14:51 Assessment & Plan Assessment & Plan (1) Severe recurrent major depression w/psychotic features, mood-congruent: Status: Acute Code(s): F33.3 - Major depressive disorder, recurrent, severe with psychotic symptoms Plan 61/F with HTN, HLD, diabetes, hypothyroidism and depression who is admitted to inpatient Psych due to depression with threat of self harm HTN--continue Lisinopril, Proprnolol and HCTZ Diabetes--continue Metfromin and SSI HLD--continue Lipitor Hypothyroidism--continue Levothryoxine, TSH is 7 check FT4 GERD--Omeprazole Depression--management per Psych Thanks for the consult, contact us for additional question, follow on PRN basis 09/09/21- continue current regime, continue to monitor. 09/10/21- Continue to re-establish regime, support through recent loss, encourage family connections. 09/12/21- Discharge planning. Continue current regime which pt is tolerating. I spent minutes with the patient and/or on the patient floor today, greater than?50% of which was spent counseling/coordinating care. Patient educated on: therapeutic strategies Informed Consent: understands and further education needed Reason for contiued inpatient stay Substantial Risk for: inability to function and rapid decompensation
[2021-09-12 19:00] VITALS: BP 109/55; PULSE 67; RESP 18; TEMP 35.8; O2SAT 96
[2021-09-12] MEDS: Melatonin 3 MG TABLET 9 MG PO (21:23)
[2021-09-12] MEDS: Benztropine Mesylate 1 MG TABLET PO (21:23)
[2021-09-12] MEDS: Amitriptyline HCl 50 MG TABLET PO (21:23)
[2021-09-12] MEDS: LORazepam 1 MG TABLET PO (21:23)
[2021-09-12] MEDS: Atorvastatin Calcium 20 MG TABLET PO (21:23)
[2021-09-12] MEDS: risperiDONE 2 MG TABLET PO (21:23)
[2021-09-12 21:44] LABS: Glucose, Whole Blood 137 mg/dL (60-115)
[2021-09-13] MEDS: Omeprazole 20 MG CAPSULE.DR PO (06:39)
[2021-09-13] MEDS: Levothyroxine Sodium 50 MCG TABLET PO (06:39)
[2021-09-13 06:43] LABS: Glucose, Whole Blood 100 mg/dL (60-115)
[2021-09-13] MEDS: hydroCHLOROthiazide 25 MG TABLET PO (08:18)
[2021-09-13] MEDS: metFORMIN HCl ER 750 MG TAB.ER.24H PO (08:18)
[2021-09-13] MEDS: lisinopriL 20 MG TABLET PO (08:18)
[2021-09-13] MEDS: Propranolol HCL LA 60 MG CAP.SA.24H PO (08:18)
[2021-09-13 08:20] VITALS: BP 123/67; PULSE 76; RESP 18; TEMP 36.2; O2SAT 99
[2021-09-13 09:12] LABS: Anion Gap 13 (12-20); Blood Urea Nitrogen 30 mg/dL (9-16); Calcium 10.3 mg/dL (8.4-10.2); Carbon Dioxide 30 mmol/L (22-29); Chloride 98 mmol/L (96-108); Estimated Glomerular Filt Rate 52; Glucose Random 90 mg/dL (60-115); Potassium 3.7 mmol/L (3.3-5.1); Sodium 137 mmol/L (135-145)
--- NOTE | 2021-09-13 17:44 | P.PNPSI_ITS ---
Subjective Subjective Date of Service: 09/13/21 Reason For Visit: psychosis,suicidality Subjective Notes: Conditional Voluntary Healthcare Proxy: Yes Guardianship: No Medical Problems Affecting Mental Status: No Interim History: Met with pt, daughter Soheila and family. Soheila agrees pt should live with her for a while. Both work together and Soheila believes this will be a good support for pt. Pt agrees. Review of med regime. No major changes from out pt, except Risperdal at 2 mg not 1 mg. Encouraged pt to stay at that dose until she sees out pt providers who know her, then begin taper and possibly have a prn available. Pt agrees, she is satisfied with this plan. She continues to grieve and describes this time as unreal for her and overwhelming. Discussed our availability to pt and family should discharge not work out. They verbalize understanding. Medication Compliance: Yes Side effects from medications: No Attending Groups: Intermittent Review of Systems Acute medical concerns: No Medical Review of Systems: unchanged Review of Systems Psychiatric: Reports anxiety, Reports depression, Reports difficulty concentrating and Reports suicidal ideation (denies) Mental Status Exam Mental Status Exam Patient Appearance: Appropriate Patient Orientation: Person, Place, Time and Situation Level of Consciousness: Alert Patient Behavior: Appropriate, Talkative, Good Eye Contact and Crying Mood Description: Depressed and Sad Affect Description: Flat Patient Cognition Impaired: No Ability to Follow Directions: Good Speech Pattern: Clear and Spontaneous Speech Memory Description: Intact Hallucinations: None Delusions: Not Present Thought Content: positive for Intact and positive for Suicidal Ideation (denies) Depressive Symptoms: Loss of Energy Judgement: Good Diagnostics Vital Signs (24Hr): Vital Signs - 24 hr 09/12/21 19:00 09/13/21 08:20 Temperature 96.5 F L 97.1 F Pulse Rate 67 76 Respiratory Rate 18 18 Blood Pressure 109/55 L 123/67 Pulse Oximetry 96 99 Labs Results: 09/13/21 08:00 Labs: Laboratory Results - last 48 hr 09/11/21 09/12/21 09/12/21 20:29 09:04 21:33 Sodium Potassium Chloride Carbon Dioxide Anion Gap BUN Creatinine Estim Creat Clear Calc Estimated GFR POC Glucose 125 H 92 137 H Random Glucose Calcium 09/13/21 09/13/21 06:37 08:00 Sodium 137 Potassium 3.7 Chloride 98 Carbon Dioxide 30 H Anion Gap 13 BUN 30 H Creatinine 1.07 Estim Creat Clear Calc TNP Estimated GFR 52 POC Glucose 100 Random Glucose 90 Calcium 10.3 H Medications Medications Current Medications Acetaminophen (Acetaminophen 325 Mg Tablet) 650 mg PO Q6H PRN PRN Reason: Pain, Mild (Pain Scale 1-3) Amitriptyline HCl (Amitriptyline Hcl 50 Mg Tablet) 50 mg PO BEDTIME [facility] Last Admin: 09/12/21 21:23 Dose: 50 mg Documented by: Atorvastatin Calcium (Atorvastatin Calcium 20 Mg Tablet) 20 mg PO BEDTIME [facility] Last Admin: 09/12/21 21:23 Dose: 20 mg Documented by: Benztropine Mesylate (Benztropine Mesylate 1 Mg Tablet) 1 mg PO BEDTIME [facility] Last Admin: 09/12/21 21:23 Dose: 1 mg Documented by: Hydrochlorothiazide (Hydrochlorothiazide 25 Mg Tablet) 25 mg PO DAILY [facility] Last Admin: 09/13/21 08:18 Dose: 25 mg Documented by: Hydroxyzine HCl (Hydroxyzine Hcl 50 Mg Tablet) 50 mg PO Q8H PRN PRN Reason: Anxiety Levothyroxine Sodium (Levothyroxine Sodium 50 Mcg Tablet) 50 mcg PO DAILY@0600 [facility] Last Admin: 09/13/21 06:39 Dose: 50 mcg Documented by: Lisinopril (Lisinopril 20 Mg Tablet) 20 mg PO DAILY [facility]; Protocol Last Admin: 09/13/21 08:18 Dose: 20 mg Documented by: Lorazepam (Lorazepam 1 Mg Tablet) 1 mg PO TID PRN PRN Reason: anxiety, agitation Last Admin: 09/12/21 21:23 Dose: 1 mg Documented by: Melatonin (Melatonin 3 Mg Tablet) 9 mg PO BEDTIME PRN PRN Reason: Insomnia Last Admin: 09/12/21 21:23 Dose: 9 mg Documented by: Metformin HCl (Metformin Hcl Er 750 Mg Tab.Er.24h) 750 mg PO DAILY [facility] Last Admin: 09/13/21 08:18 Dose: 750 mg Documented by: Omeprazole (Omeprazole 20 Mg Capsule.Dr) 20 mg PO DAILY@0630 [facility] Last Admin: 09/13/21 06:39 Dose: 20 mg Documented by: Propranolol HCl (Propranolol Hcl La 60 Mg Cap.Sa.24h) 60 mg PO DAILY [facility]; Protocol Last Admin: 09/13/21 08:18 Dose: 60 mg Documented by: Risperidone (Risperidone 2 Mg Tablet) 2 mg PO BEDTIME [facility] Last Admin: 09/12/21 21:23 Dose: 2 mg Documented by: Allergies Allergies Allergy/AdvReac Type Severity Reaction Status Date / Time No Known Allergies Allergy Verified 09/07/21 14:51 Assessment & Plan Assessment & Plan (1) Severe recurrent major depression w/psychotic features, mood-congruent: Status: Acute Code(s): F33.3 - Major depressive disorder, recurrent, severe with psychotic symptoms Assessment and Plan: 09/13/21- Discharge 09/14/21 with family. Plan 61/F with HTN, HLD, diabetes, hypothyroidism and depression who is admitted to inpatient Psych due to depression with threat of self harm HTN--continue Lisinopril, Proprnolol and HCTZ Diabetes--continue Metfromin and SSI HLD--continue Lipitor Hypothyroidism--continue Levothryoxine, TSH is 7 check FT4 GERD--Omeprazole Depression--management per Psych Thanks for the consult, contact us for additional question, follow on PRN basis 09/09/21- continue current regime, continue to monitor. 09/10/21- Continue to re-establish regime, support through recent loss, encourage family connections. 09/11/21- Improving, continute regime, support in transition back to her home and family. I spent minutes with the patient and/or on the patient floor today, greater than?50% of which was spent counseling/coordinating care. Patient educated on: medication risk/benefits and therapeutic strategies Guardian/Caregiver educated on: medication risk/benefits, therapeutic strategies and other Informed Consent: understands Reason for contiued inpatient stay Substantial Risk for: stable for discharge
[2021-09-13 18:00] VITALS: BP 116/74; PULSE 74
[2021-09-13] MEDS: risperiDONE 2 MG TABLET PO (19:36)
[2021-09-13] MEDS: Melatonin 3 MG TABLET 9 MG PO (19:36)
[2021-09-13] MEDS: Atorvastatin Calcium 20 MG TABLET PO (19:36)
[2021-09-13] MEDS: Amitriptyline HCl 50 MG TABLET PO (19:36)
[2021-09-13] MEDS: Benztropine Mesylate 1 MG TABLET PO (19:36)
[2021-09-14 06:10] VITALS: BP 106/54; PULSE 73; RESP 16; TEMP 36.2; O2SAT 95
[2021-09-14] MEDS: Levothyroxine Sodium 50 MCG TABLET PO (06:11)
[2021-09-14] MEDS: Omeprazole 20 MG CAPSULE.DR PO (06:11)
[2021-09-14 06:56] LABS: Glucose, Whole Blood 95 mg/dL (60-115)
[2021-09-14] MEDS: hydroCHLOROthiazide 25 MG TABLET PO (07:43)
[2021-09-14] MEDS: metFORMIN HCl ER 750 MG TAB.ER.24H PO (07:43)
[2021-09-14] MEDS: lisinopriL 20 MG TABLET PO (07:43)
[2021-09-14] MEDS: Propranolol HCL LA 60 MG CAP.SA.24H PO (07:44)
[2021-09-14 07:45] VITALS: BP 132/61; PULSE 73; RESP 18; TEMP 36.4; O2SAT 96
--- NOTE | 2021-09-14 09:43 | PM.PSYDC ---
DS: Providers Provider Date of Service: 09/14/21 Date of admission: 09/07/21 22:38 Date of discharge: 09/14/21 Primary care physician: Shikha Jeronimo MD Admitting clinician: Lu Kincaid Attending physician on admission: Lu Kincaid Consults: 09/07/21 15:02 Consult to Hospitalist Routine Consulting Provider: Hospitalist Reason For Exam: Trasfer from [facility] Attending physician on discharge: Lu Kincaid Discharging clinician: Lu Kincaid DS: Diagnosis Discharge Diagnosis (1) Severe recurrent major depression w/psychotic features, mood-congruent: Status: Acute DS: Medications Discharge Medications Home Medications: Previous Rx's Medication Instructions Recorded amitriptyline 50 mg tablet 50 mg PO BEDTIME #30 tab 09/14/21 benztropine 1 mg tablet 1 mg PO BEDTIME #30 tab 09/14/21 hydroxyzine HCl 50 mg tablet 50 mg PO TID PRN #30 tab 09/14/21 levothyroxine 50 mcg tablet 50 mcg PO DAILY #30 tab 09/14/21 lisinopril 20 1 tab PO DAILY #30 tab 09/14/21 mg-hydrochlorothiazide 25 mg tablet lorazepam 1 mg tablet 1 mg PO TID PRN #30 tab 09/14/21 melatonin 3 mg tablet 9 mg PO BEDTIME PRN #90 tab 09/14/21 metformin 750 mg tablet,extended 750 mg PO DAILY #30 tab 09/14/21 release 24 hr omeprazole 20 mg capsule,delayed 20 mg PO DAILY #30 cap 09/14/21 release propranolol 60 mg capsule,24 60 mg PO DAILY #30 cap 09/14/21 hr,extended release risperidone 2 mg tablet 2 mg PO BEDTIME #30 tab 09/14/21 simvastatin 20 mg tablet 20 mg PO BEDTIME #30 tab 09/14/21 Mental Status Exam Mental Status Exam Patient Appearance: Appropriate Patient Orientation: Person, Place, Time and Situation Level of Consciousness: Alert Patient Behavior: Appropriate, Talkative, Good Eye Contact and Crying Mood Description: Depressed and Sad Affect Description: Flat Patient Cognition Impaired: No Ability to Follow Directions: Good Speech Pattern: Clear and Spontaneous Speech Memory Description: Intact Hallucinations: None Delusions: Not Present Thought Content: positive for Intact and positive for Suicidal Ideation (denies) Depressive Symptoms: Loss of Energy Judgement: Good Data Data Completed and Pending Completed studies during hospitalization [Text1]: 09/08/21 09/09/21 09/09/21 07:28 07:36 07:36 Sodium 138 Potassium 3.8 Chloride 99 Carbon Dioxide 27 Anion Gap 16 BUN 30 H Creatinine 1.26 Estim Creat Clear Calc TNP Estimated GFR 43 POC Glucose Random Glucose Fasting Glucose 103 H Estimat Average Glucose 120 Hemoglobin A1c % 5.8 Calcium 10.3 H Total Bilirubin 0.5 AST 52 H ALT 70 H Alkaline Phosphatase 61 Total Protein 7.7 Albumin 4.3 Triglycerides 210 Cholesterol 171 LDL Cholesterol, Calc 80 HDL Cholesterol 49 Vitamin B12 199 L 25-OH Vitamin D Total Folate 7.7 TSH Free T4 09/09/21 09/11/21 09/11/21 07:36 06:52 16:47 Sodium Potassium Chloride Carbon Dioxide Anion Gap BUN Creatinine Estim Creat Clear Calc Estimated GFR POC Glucose 90 130 H Random Glucose Fasting Glucose Estimat Average Glucose Hemoglobin A1c % Calcium Total Bilirubin AST ALT Alkaline Phosphatase Total Protein Albumin Triglycerides Cholesterol LDL Cholesterol, Calc HDL Cholesterol Vitamin B12 25-OH Vitamin D Total 33.4 Folate TSH 7.84 H Free T4 1.09 09/11/21 09/12/21 09/12/21 20:29 09:04 21:33 Sodium Potassium Chloride Carbon Dioxide Anion Gap BUN Creatinine Estim Creat Clear Calc Estimated GFR POC Glucose 125 H 92 137 H Random Glucose Fasting Glucose Estimat Average Glucose Hemoglobin A1c % Calcium Total Bilirubin AST ALT Alkaline Phosphatase Total Protein Albumin Triglycerides Cholesterol LDL Cholesterol, Calc HDL Cholesterol Vitamin B12 25-OH Vitamin D Total Folate TSH Free T4 09/13/21 09/13/21 09/14/21 06:37 08:00 06:15 Sodium 137 Potassium 3.7 Chloride 98 Carbon Dioxide 30 H Anion Gap 13 BUN 30 H Creatinine 1.07 Estim Creat Clear Calc TNP Estimated GFR 52 POC Glucose 100 95 Random Glucose 90 Fasting Glucose Estimat Average Glucose Hemoglobin A1c % Calcium 10.3 H Total Bilirubin AST ALT Alkaline Phosphatase Total Protein Albumin Triglycerides Cholesterol LDL Cholesterol, Calc HDL Cholesterol Vitamin B12 25-OH Vitamin D Total Folate TSH Free T4 DS: Summary Hospital Course Hospital Course: Admission to adult psychiatry to address symptoms of recurrent major depression with psychosis and acute grief reaction. Pt and family report she was unable to obtain medication refills since the end of Jun 2021 from out pt provider. During this time she experienced significant psychosocial stress as her was terminally ill and on 09/04/21. Upon admission, she exhibited psychotic sx, she required one dose of Olanzapine and Risperdal was increased to 2 mg daily from 1 mg daily. Lorazepam was also added as a prn. Medical/psychiatric regime was re-established and Sharmila recompensated. She was unable to attend her 's as her symptoms were too acute and reported she did not feel stable enough to attend. Family was very supportive and Sharmila will plan to live with her daughter Soheila upon discharge. Time spent discussing smoking cessation with patient: 3 to 10 minutes Status at Discharge Functional status at discharge: independent ambulation Overall status at discharge: patient is progressing back to baseline Time Spent with Patient Time attestation: Total time spent providing and/or coordinating discharge services:40 Time spent: Greater than 30 minutes Discharge Plan Discharge Patient Disposition: Home, Self-Care Discharge Diagnosis: Recurrent Major Depression, Severe, with Psychosis Acute Grief Reaction Hyperlipidemia GERD Diabetes Hypertension Referrals: Therapy: Bonita Hernadez ([employer]) [Other] - 09/18/21 10:15 am (Telehealth ) Shikha Jeronimo MD [Primary Care Provider] - (Office will call you directly. ) Discharge Medications: New risperidone 2 mg Tablet 2 mg PO BEDTIME Qty: 30 0RF lorazepam 1 mg Tablet 1 mg PO TID PRN (Reason: anxiety, agitation) Qty: 30 0RF melatonin 3 mg Tablet 9 mg PO BEDTIME PRN (Reason: Insomnia) Qty: 90 0RF Continued propranolol 60 mg Capsule,Extended Release 24 Hr 60 mg PO DAILY Qty: 30 0RF hydroxyzine HCl 50 mg Tablet 50 mg PO TID PRN (Reason: Anxiety) Qty: 30 0RF amitriptyline 50 mg Tablet 50 mg PO BEDTIME Qty: 30 0RF levothyroxine 50 mcg Tablet 50 mcg PO DAILY Qty: 30 0RF Rx Instructions: take 1 tab M-F. Take 2 tabs on Sat and Sun simvastatin 20 mg Tablet 20 mg PO BEDTIME Qty: 30 0RF benztropine 1 mg Tablet 1 mg PO BEDTIME Qty: 30 0RF omeprazole 20 mg Capsule,Delayed Release(Dr/Ec) 20 mg PO DAILY Qty: 30 0RF lisinopril-hydrochlorothiazide 20-25 mg Tablet 1 tab PO DAILY Qty: 30 0RF metformin 750 mg Tablet Extended Release 24 Hr 750 mg PO DAILY Qty: 30 0RF Discontinued risperidone [Risperdal] 1 mg Tablet 1 mg PO BEDTIME 0RF Discharge Orders: Discharge Order (Routine); Ordered 09/14/21 Ordered By: Lu Kincaid Diet: advance to usual diet Activity on Discharge: As tolerated Stand Alone Forms: Patient Portal Discharge page, Community Support Care Plan Goals: Mood Stabilization Health Concerns: Recurrent Major Depression Acute Grief Reaction Hyperlipidemia GERD Diabetes Hypertension Plan of Treatment: Take medications as directed Attend follow up appointments Assessment: Pt with brighter affect, non labile. No SI/HI. No VH/AH. No signs of aggression towards self or others. Discharge Date/Time: 09/14/21 12:22
== END 2021-09-14 12:22 | disposition home or self-care (01) | DRG 751 ==
PROVIDERS: Internal Medicine; Student in an Organized Health Care Education/Training Program; Admitting Provider Psychiatry & Neurology Psychiatry; PCP Internal Medicine; Visit Provider Clinical Nurse Specialist Psychiatric/Mental Health, Adult
DX: F33.3 Major depressive disorder, recurrent, severe with psychotic symptoms (principal); R45.851 Suicidal ideations; E11.9 Type 2 diabetes mellitus without complications; E03.9 Hypothyroidism, unspecified; K21.9 Gastro-esophageal reflux disease without esophagitis; E78.5 Hyperlipidemia, unspecified; Z79.84 Long term (current) use of oral hypoglycemic drugs; Z79.890 Hormone replacement therapy; Z79.899 Other long term (current) drug therapy
CPT/HCPCS: 36415; 80048; 80053; 80061; 82306; 82607; 82746; 82947; 83036; 84439; 84443

== ENCOUNTER 2025-03-28 13:15 | Emergency (ER) | payer OTHER, SELFPAY ==
[2025-03-28 13:26] VITALS: BP 163/74; PULSE 90; RESP 16; TEMP 35.9; O2SAT 98; BMI 25.6
--- NOTE | 2025-03-28 13:26 | ED_ITS ---
HPI - General Adult General Chief complaint: Psychiatric Symptoms Stated complaint: Hallucinating, low bp, paranoid, [facility] request eval Time Seen by Provider: 03/28/25 14:04 Source: patient, family (daughters) and RN notes reviewed Mode of arrival: ambulatory History of Present Illness ED Provider: Siva HPI narrative: Patient is a 64-year-old female with history of severe recurrent major depression with psychotic features, dm, HTN, HLD, GERD presenting to the emergency department with daughters from [facility] for evaluation of recent confusion. Daughter states she noticed the confusion last week. Patient called her asking for the daughter to check her medications as patient felt she was not taking them correctly. When her daughter went to her house, her daughter noted that she had not been taking her medications correctly. Daughter states this is a typical presentation for patient when she is off her medications. Patient has reported vague suicidal ideation without a plan. She denies any homicidal ideation. She does report auditory and visual hallucinations. She denies any current physical complaints. Daughter reports patient has been stressed about bills and work recently. MD complaint: confusion Onset (ago): week(s) Related Data Home Medications ?Medication ?Instructions ?Recorded ?Confirmed amlodipine 2.5 mg-benazepril 10 mg 1 cap PO DAILY 08/1703/28/25 capsule benztropine 1 mg tablet 1 mg PO BEDTIME 03/28/2508/17 risperidone 2 mg tablet 1 mg PO BEDTIME 03/28/2508/17 trazodone 50 mg tablet 25 mg PO BEDTIME PRN Insomni a 03/28/25 03/28/25 Previous Rx's ?Medication ?Instructions ?Recorded amitriptyline 50 mg tablet 50 mg PO BEDTIME #30 tabs 0 09/14/21 hydroxyzine HCl 50 mg tablet 50 mg PO TID PRN Anxiety #30 tabs 09/14/21 levothyroxine 50 mcg tablet 50 mcg PO DAILY #30 tabs 0 09/14/21 metformin 750 mg tablet,extended 750 mg PO DAILY #30 t abs 09/14/21 release 24 hr omeprazole 20 mg capsule,delayed 20 mg PO DAILY #30 ca ps 09/14/21 release propranolol 60 mg capsule,24 60 mg PO DAILY #30 caps 0 09/14/21 hr,extended release cephalexin 500 mg tablet 500 mg PO Q8H 7 days #21 tab s 03/30/25 Allergies Allergy/AdvReac Type Severity Reaction Status Date / Time No Known Allergies Allergy Verified 03/28/25 13:29 Review of Systems 2 Review of Systems: As per HPI Yes all other systems are reviewed and are negative Constitutional: Constitutional: Reports as per HPI [facility] Past Medical History Medical History (Updated 03/30/25 @ 07:12 by SAVANNA Reina) HLD (hyperlipidemia) GERD (gastroesophageal reflux disease) Diabetes HTN (hypertension) Hypothyroidism Severe recurrent major depression w/psychotic features, mood-congruent Family History Family History (Updated 09/09/21 @ 11:59 by Slava Rodriguez MD) Other HTN (hypertension) Social History Social History Household Members: Children Housing: House Do you presently have visiting nurse or other home services: No Patient Tobacco Use Status: Never used Tobacco e-Cigarette/Vaping Use: Never Used Second Hand Smoke Exposure: No Advance Directives: Yes Advance Directives Information Provided: No Advance Directives on File: No service: No Sexual orientation: Straight/Heterosexual Physical Exam ED Vital Signs: Vital Signs - 24 hr 03/29/25 21:45 03/30/25 05:12 03/30/25 06:00 Temperature 97.8 F 97.8 F Pulse Rate 91 107 H 101 H Respiratory Rate 16 16 20 Blood Pressure 167/91 H 165/91 H 173/106 H Pulse Oximetry 98 98 99 Oxygen Delivery Method Room Air Room Air Room Air 03/30/25 11:36 Temperature Pulse Rate Respiratory Rate Blood Pressure 154/70 H Pulse Oximetry Oxygen Delivery Method BMI result Body Mass Index 25.6 Vital signs have been reviewed and appear to be correct. Blood pressure elevated. Heart rate normal. Respiratory rate normal. Temperature normal. Oxygen saturation normal. Const General: cooperative, healthy appearing and no acute distress Orientation/consciousness: oriented to person, oriented to place, oriented to time and patient oriented x3 Limitations: no limitations HENMT Head: Yes normocephalic and Yes atraumatic Ears: external ears normal General nose exam: Normal external nose present Face and sinus: Yes face symmetric Mouth: oropharynx normal and moist mucous membranes Throat: Yes uvula midline Eyes Pupils: Equal, round and reactive pupils present Neck Neck: Yes normal visual inspection and Yes supple Resp Effort & Inspection: normal respiratory effort and able to speak in complete sentences Auscultation: clear to auscultation bilaterally Cardio Rate: regular rate Rhythm: regular rhythm Heart sounds: S1 normal heart sound present and S2 normal heart sound present GI Palpation (GI): Soft to palpation and nontender Auscultation: normoactive bowel sounds General: Yes no CVA tenderness Back/Spine/Pelvis Back: no CVA tenderness Skin General skin exam: elasticity normal and turgor normal Neuro General: oriented to person, oriented to place, oriented to time, patient oriented x3, moves all extremities, no focal motor deficits and CN's II-XI intact bilaterally Cranial nerves: Yes Equal, round and reactive pupils present Cognition (Neuro): normal cognition Extrem General: Yes full ROM, Yes no pedal edema and Yes no calf tenderness Psych Mental Status: mental status grossly normal Speech and movement: Normal speech and movement present Affect: Sad affect present Attitude: cooperative Thought process: Other thought process findings present (difficulty answering questions, easily distracted) Thought content: Suicidality present, no homicidality and Hallucination(s) present auditory and visual Insight: Limited insight present (Psych) Judgement: Limited judgement present (Psych) Course Course Course Narrative: Rapid medical examination performed in triage by Nohemi Hopkins PA-C: Patient is a 64 year old assigned female at presenting to the emergency department with increased paranoia, hallucinations, and medication non- compliance. Detailed physical exam and review of systems are deferred to the milling machine set up operator. Charge nurse made aware. Reevaluation(s) Reevaluation #1: Time: 05:44 Date: 03/29/25 Provider: Kamla Jeffries, DO Patient in physician observation for psychiatric evaluation.? No acute events reported overnight. No current complaints. VS stable.? Pending CARE team evaluation. Will continue to monitor. Her urine has no nitrites it does have white cells but it does appear contaminated at this time I would not treat for UTI, she has no fever, no elevated WBC count, Time: 20:08 Reevaluation #3: Accepted at [facility]. Will prescibe keflex to treat for possible UTI Medications Administered Generic Name Dose Route Start Last Admin Trade Name Freq PRN Reason Stop Dose Admin Amitriptyline HCl 50 mg 03/28/25 21:00 03/30/25 00:54 Amitriptyline Hcl 50 Mg Tablet PO Not Given BEDTIME RAUL Amlodipine Besylate 2.5 mg 03/29/25 09:00 03/30/25 09:22 Amlodipine Besylate 2.5 Mg Tablet PO 2.5 mg DAILY RAUL Administration Benztropine Mesylate 1 mg 03/28/25 21:00 03/30/25 00:54 Benztropine Mesylate 1 Mg Tablet PO Not Given BEDTIME RAUL Hydroxyzine HCl 50 mg 03/28/25 16:44 03/30/25 13:03 Hydroxyzine Hcl 50 Mg Tablet PO 50 mg TID PRN Administration Anxiety Levothyroxine Sodium 50 mcg 03/29/25 06:00 03/30/25 06:15 Levothyroxine Sodium 50 Mcg Tablet PO Not Given DAILY@0600 RAUL Lisinopril 10 mg 03/29/25 09:00 03/30/25 09:22 Lisinopril 10 Mg Tablet PO 10 mg DAILY RAUL Administration Metformin HCl 750 mg 03/29/25 09:00 03/30/25 09:22 Metformin Hcl Er 750 Mg Tab.Er.24h PO Not Given DAILY [facility] Omeprazole 20 mg 03/29/25 09:00 03/30/25 06:15 Omeprazole 20 Mg Capsule.Dr PO Not Given DAILY@0630 [facility] Propranolol HCl 60 mg 03/29/25 09:00 03/30/25 09:23 Propranolol Hcl La 60 Mg Cap.Sa.24h PO Not Given DAILY [facility] Protocol Risperidone 1 mg 03/28/25 21:00 03/30/25 00:56 Risperidone 1 Mg Tablet PO Not Given BEDTIME RAUL Discontinued Medications Generic Name Dose Route Start Last Admin Trade Name Sundeepq PRN Reason Stop Dose Admin Lorazepam 1 mg 03/29/25 05:25 03/29/25 11:40 Lorazepam 1 Mg Tablet PO 03/29/25 05:26 Not Given ONCE ONE Medical Decision Making Medical Decision Making MDM Narrative: Patient is a 64-year-old female with history of severe recurrent major depression with psychotic features, dm, HTN, HLD, GERD presenting to the emergency department with daughters from [facility] for evaluation of recent confusion. On exam patient is awake, A+Ox3, VS WNL, afebrile, normal neurological exam without focal deficits, physical exam findings as above. Given reported symptoms and physical exam findings, initial differential includes but is not limited to depressive disorder, auditory and visual hallucinations, suicidal ideation. Labs unremarkable. Urine drug screen and ethanol negative. UA notable for 2+ leukocytes, 21-50 wbc's and 2+ bacteria, however, also notable for greater than 20 epithelials. Suspect this is likely due to contamination as patient denies any urinary symptoms, will wait for urine culture prior to initiation of treatment with antibiotics. Patient medically cleared at this time (1447) for care team evaluation and placed on physician observation. Lab Data 03/28/25 13:42 03/28/25 13:42 Labs: Lab Results 03/28/25 03/28/25 Range/Units 13:42 14:17 WBC 7.7 (4.8-10.8) X10*3/uL RBC 4.21 (4.20-5.50) X10*6/uL Hgb 12.1 (12.0-16.0) g/dl Hct 36.7 L (37.0-47.0) % MCV 87.2 (80.0-98.0) fL MCH 28.7 (27.0-33.0) pg MCHC 33.0 (31.0-35.0) g/dl RDW 13.2 (11.0-16.0) % Plt Count 239 (160-400) X10*3/uL MPV 11.1 (9.4-12.3) fL Immature Gran % (Auto) 0.1 (0.0-0.4) % Neut % (Auto) 58.5 (45-73) % Lymph % (Auto) 32.1 (20-40) % [place] % (Auto) 7.0 (2-11) % Eos % (Auto) 1.9 (0-4) % Baso % (Auto) 0.4 (0-2) % Lymph # (Auto) 2.5 (1.2-4.9) X10*3/uL [place] # (Auto) 0.5 (0.1-1.2) X10*3/uL Eos # (Auto) 0.2 (0.0-0.4) X10*3/uL Baso # (Auto) 0.0 (0.0-0.2) X10*3/uL Abs Immat Gran (auto) 0.01 (0.00-0.03) X10*3/uL Absolute Neuts (auto) 4.5 (2.0-8.3) x10*3/uL Absolute Nucleated RBC 0.000 (0.0-0.012) X10*3/uL Nucleated RBC % (auto) 0.0 (0.0-0.2) /100WBC Sodium 140 (135-145) mmol/L Potassium 4.2 (3.3-5.1) mmol/L Chloride 105 (96-108) mmol/L Carbon Dioxide 25 (22-29) mmol/L Anion Gap 14 (12-20) BUN 22 H (9-16) mg/dL Creatinine 0.98 (0.5-1.4) mg/dL Estim Creat Clear Calc 50.7 Estimated GFR 57 Random Glucose 95 (60-115) mg/dL Calcium 9.8 (8.4-10.2) mg/dL Total Bilirubin 0.3 (0.0-1.0) mg/dL AST 24 (5-31) U/L ALT 16 (0-31) U/L Alkaline Phosphatase 80 (39-117) U/L Total Protein 8.4 H (6.5-8.0) g/dL Albumin 4.8 (3.5-5.0) g/dL Urine Color Yellow Urine Appearance Cloudy Urine pH 6.0 (5.0-9.0) Ur Specific [place] 1.020 (1.005-1.025) Urine Protein 30 (1+) H (Neg-Trace) mg/dL Urine Glucose (UA) Negative (Negative) mg/dL Urine Ketones Negative (Negative) mg/dL Urine Blood Negative (Negative) Urine Nitrite Negative (Negative) Ur Leukocyte Esterase Moderate (2+) H (Negative) Urine RBC 0-2 (0-2) /HPF Urine WBC 21-50 H (0-5) /HPF Ur Squamous Epith Cells >20 (0-2) /HPF Urine Bacteria 2+ (None Seen) Hyaline Casts 3-5 (0-2) /LPF Salicylates < 5.0 L (15-30) mg/dL Urine Opiates Screen Not Detected (Not Detect) Ur Buprenorphine Scrn Not Detected (Not Detect) ng/mL Ur Oxycodone Screen Not Detected (Not Detect) ng/mL Urine Methadone Screen Not Detected (Not Detect) ng/mL Urine Fentanyl Screen Not Detected (Not Detect) Acetaminophen < 3 (<30) mcg/mL Ur Barbiturates Screen Not Detected (Not Detect) Ur Phencyclidine Scrn Not Detected (Not Detect) Ur Amphetamines Screen Not Detected (Not Detect) U Benzodiazepines Scrn Not Detected (Not Detect) Urine Cocaine Screen Not Detected (Not Detect) U Marijuana (THC) Screen Not Detected (Not Detect) Ethyl Alcohol < 10 mg/dL Discharge Plan Discharge Clinical Impression: Severe recurrent major depression w/psychotic features, mood-congruent Patient Disposition: Xfer Psychiatric Hosp Transfer Details: ana howard Additional Instructions: Your urine was a dirty catch meaning there is a lot of skin cells in the urine sample. It shows possible UTI. I will plan to send some antibiotics off for you to treat for it. Prescriptions: New cephalexin 500 mg tablet 500 mg PO Q8H 7 Days Qty: 21 0RF No Action propranolol 60 mg Capsule,Extended Release 24 Hr 60 mg PO DAILY Qty: 30 0RF hydroxyzine HCl 50 mg Tablet 50 mg PO TID PRN (Reason: Anxiety) Qty: 30 0RF amitriptyline 50 mg Tablet 50 mg PO BEDTIME Qty: 30 0RF levothyroxine 50 mcg Tablet 50 mcg PO DAILY Qty: 30 0RF Rx Instructions: take 1 tab M-F. Take 2 tabs on Sat and Sun omeprazole 20 mg Capsule,Delayed Release(Dr/Ec) 20 mg PO DAILY Qty: 30 0RF metformin 750 mg Tablet Extended Release 24 Hr 750 mg PO DAILY Qty: 30 0RF benztropine 1 mg tablet 1 mg PO BEDTIME risperidone 2 mg tablet 1 mg PO BEDTIME trazodone 50 mg tablet 25 mg PO BEDTIME PRN (Reason: Insomnia) amlodipine-benazepril 2.5-10 mg capsule 1 cap PO DAILY Interventions: [place]-Suicide Risk Severity Scale Last Done: 03/29/25 14:33 Print Language: Jamaican
[2025-03-28 13:47] LABS: MANUAL DIFF FLAG NO
[2025-03-28 13:48] LABS: Hematocrit 36.7 % (37.0-47.0); Hemoglobin 12.1 g/dl (12.0-16.0); Imm Gran Abs Auto 0.01 X10*3/uL (0.00-0.03); Imm Gran Pct Auto 0.1 % (0.0-0.4); Lymphocytes Absolute Auto 2.5 X10*3/uL (1.2-4.9); Mean Corpuscular HGB Conc 33.0 g/dl (31.0-35.0); Mean Corpuscular Hemoglobin 28.7 pg (27.0-33.0); Mean Corpuscular Volume 87.2 fL (80.0-98.0); NRBC Abs Auto 0.000 X10*3/uL (0.0-0.012); NRBC Pct Auto 0.0 /100WBC (0.0-0.2); Platelet Count 239 X10*3/uL (160-400); Red Blood Count 4.21 X10*6/uL (4.20-5.50); White Blood Count 7.7 X10*3/uL (4.8-10.8)
[2025-03-28 14:08] LABS: Alanine Aminotransferase 16 U/L (0-31); Albumin Level 4.8 g/dL (3.5-5.0); Alkaline Phosphatase 80 U/L (39-117); Anion Gap 14 (12-20); Aspartate Amino Transferase 24 U/L (5-31); Blood Urea Nitrogen 22 mg/dL (9-16); Calcium 9.8 mg/dL (8.4-10.2); Carbon Dioxide 25 mmol/L (22-29); Chloride 105 mmol/L (96-108); Creatinine Clr Calc Pharmacy 50.7; Estimated Glomerular Filt Rate 57; Potassium 4.2 mmol/L (3.3-5.1); Sodium 140 mmol/L (135-145); Total Protein 8.4 g/dL (6.5-8.0)
[2025-03-28 14:13] LABS: Acetaminophen LAB < 3 mcg/mL (<30); Salicylate < 5.0 mg/dL (15-30)
[2025-03-28 14:32] LABS: Appearance Urine Cloudy; Glucose Urine UA Negative (Negative); PH 6.0 (5.0-9.0); Specific Gravity - Urine 1.020 (1.005-1.025); UMIC TRIGGER UA YES
[2025-03-28 14:44] LABS: Cannabinoid Screen Urine Not Detected (Not Detect)
--- NOTE | 2025-03-28 17:02 | PHA.MEDREC ---
Pharmacy Consult ? Medication Reconciliation Pharmacy has completed the medication reconciliation. Med rec completed by Maxine, via patient RX bottles with pt's daughter. Per Maxine, patient hadn't been taking medications for a while until about a week ago.
--- NOTE | 2025-03-28 18:34 | MHC.CARE ---
Patient evaluated by the CARE Team, disposition inpatient psychiatric treatment. Provider, SAVANNA Amador, updated.
--- NOTE | 2025-03-28 22:52 | PC.NURSE ---
Late entry for 2129 RN and medical staffing coordinator to phone to speak with patient. She had been present on the phone with her daughter for approx 1 hour. Staff went over to speak with patient and escorted her to her room once call was disconnected; daughter kevin looking for call back regarding patient's condition/status. Once in the room, pt could be noted to be intermittently tearful, pacing, rubbbing her temples, punching her hand, hitting the wall but unable and/or unwilling to provide information regarding how she was feeling and/or why she was exhibiting these behaviors. The pt offers no complaints; she at times appeared to be responding to other stimuli outside of myself and the sign language interpreter at one time confirming the presence of auditory hallucinations but unable to go into detail about what she was hearing and/or who the voices were. The pt would often ask this RN to wait or stop when attempting to end the conversation and disengage, when prompted with questions she would appear overwhelmed as if she were thinking and/or she would begin to speak and then stop mid sentence and look around or whisper to herself. Pt not answering questions pertaining to SI/HI, safety concerns, and/or what is making her tearful/upset. Staff will continue to monitor
--- NOTE | 2025-03-29 00:18 | PC.NURSE ---
RN to bedside with salvadorean speaking staff/oncoming RN in an attempt to provide the pt with her evening medications. The pt is unwilling to take her medications at this time despite multiple attempts and approaches by staff. Pt unwilling to take medication cup from staff and/or accept medication. Everytime staff attempts to educate and/or speak with the patient regarding the reason for her medications she will interrupt them and say wait in [place]. Pt continues to appear as though she is responding to alternative stimuli. Pt begging staff to not leave her room as she is tearful, requiring frequent and consistent verbal redirection.
--- NOTE | 2025-03-29 03:20 | PC.NURSE ---
took over care from MANUEL Membreno at 23:00 pt extremely confused, unable to take medications, pt pacing in room.
--- NOTE | 2025-03-29 03:23 | MHC.EDTECH ---
Late entry: Per RN Maxine patient unable to participate with EKG at time of test being ordered.
--- NOTE | 2025-03-29 06:04 | PC.NURSE ---
pt extremely confused continue to have to be redirected back in room.
--- NOTE | 2025-03-29 07:44 | PC.NURSE ---
Tiaratn care, report received. Pt has not slept all night, she is pacing and has refused to take any medications. She appears paranoid and worried.
--- NOTE | 2025-03-29 07:47 | MHC.EDTECH ---
Per RN, wait to perform EKG for family to be at bedside to assist with patient being still through the test.
[2025-03-29 09:08] VITALS: RESP 18
--- NOTE | 2025-03-29 11:20 | MHC.EDTECH ---
Pt unable to stay still for an EKG at this time. RN aware.
--- NOTE | 2025-03-29 11:42 | PC.NURSE ---
Pts AM medications were removed from the pixis at 9am, 30 min spent on attempting to get Pt to take her meds, family is called on the phone and they via the phone try to get her to take her pills. Attempts are made to get VS and she pulls away from the machine and continues to have paranoid behavior. She walks the unit with noted response to internal stimuli. 2 more attempts are made to give pt her medications, she will hold them and then play with them, she also pretends to take them. Pts family arrives at 11am and they try to get her to take meds for 35 minutes. Pt did allow a blood pressure which is elevated, she continued to refuse all meds which included her BP meds. Medications at this time are waisted and marked as refused. Pt had some complaints of Rt lower abd pain in the early am, she agreed to shower with her daughters present and had an incontinent episode of stool on the way to the bathroom, she stated she feels better. Pt has not eaten the provided meal, family brought a few snacks which she ate only a small bite of a banana.
--- NOTE | 2025-03-29 11:44 | MHC.EDTECH ---
patient incontinent of feces, unwilling to let staff clean her. Family present and asking if they can assist in patient shower. Toiletries and change of clothes provided to family.
[2025-03-29 13:54] VITALS: BP 198/88
[2025-03-29 14:19] VITALS: PULSE 95; RESP 18; O2SAT 98
--- NOTE | 2025-03-29 14:20 | MHC.EDTECH ---
Patient unable/unwilling to sit through BP. Rn aware.
[2025-03-29 21:45] VITALS: BP 167/91; PULSE 91; RESP 16; TEMP 36.6; O2SAT 98
--- NOTE | 2025-03-29 22:32 | PC.NURSE ---
Addendum entered by Brandy Ivey RN 03/30/25 00:56: pt had refused her 2100 meds. Addendum entered by Brandy Ivey RN 03/29/25 23:20: pharmacy never delivered amtriptyline 50 mg although they told this RN they would; med not given. Pt asleep at this time. Original Note: Delay in med administration- RN waiting for pharmacy to deliver med that is not in [facility].
--- NOTE | 2025-03-30 00:57 | PC.NURSE ---
RN took over care at 1900; pt very confused, unable to communicate needs; refused meds.
--- NOTE | 2025-03-30 02:27 | PC.NURSE ---
Addendum entered by Brandy Ivey RN 03/30/25 03:58: pt is still awake; pt is still pacing, very confused. refuses to stay in room. pt still asking to call dtr at this time as well as police. Pt is directable but then she begins all over again with the delusions. refusing to sleep, refusing meds, refusing anything to drink. RN and tech will continue to monitor. Original Note: pt woke up very confused and frustrated. asked to call her daughter and call the police. RN tried to redirect her and tell her her dtr is asleep its 2a, she can call her in the am. RN informed pt she is safe- no need to call police. Pt dances in between convo. Rn ask pt if she would like some medicine to rest- pt says nothing. pt continues to pace and ask to call her daughter. pt refusing to rest.
--- NOTE | 2025-03-30 05:03 | PC.NURSE ---
pt is hypertensive in the 160/90 range- MD made aware. RN also informed MD that pt been noncompliant with po meds.
[2025-03-30 05:12] VITALS: BP 165/91; PULSE 107; RESP 16; TEMP 36.6; O2SAT 98
--- NOTE | 2025-03-30 05:54 | PC.NURSE ---
RN tried to give pt some sips of water; pt refused. Pt kept chanting all night in Ukrainian angely is innocent- guilty , repeatedly all night.
[2025-03-30 06:00] VITALS: BP 173/106; PULSE 101; RESP 20; O2SAT 99
--- NOTE | 2025-03-30 06:04 | PC.NURSE ---
pt refusing am meds. RN tried to educate pt on the importance of taking her meds- pt extremely confused and still refusing to take anything po. pt continues to tap on the glass of the nursing station- has been redirected several times.
--- NOTE | 2025-03-30 08:24 | PC.NURSE ---
Assumed care, report received. Pt is awake and pacing the unit, she is steady on her feet. She ate 25% of her breakfast and continues to refuse medications. She responds to internal stimuli at times, holds staff hands tight and appears fearful, other times she is laughing.
[2025-03-30 11:36] VITALS: BP 154/70
--- NOTE | 2025-03-30 19:33 | MHC.CARE ---
BH4 Sharmilacalli Neal was accepted to [facility] [id number] [place] [address] for savanna, ETA: next available. Accepting facility will call for N2N but per Neil @ [facility] transport does not need to wait for N2N. Accepting is Dr. Giuliano Hernández
[2025-03-30 19:57] VITALS: BP 146/86; PULSE 107; RESP 17; TEMP 35.6; O2SAT 96
== END 2025-03-30 20:45 ==
PROVIDERS: Physician Assistant Medical; Emergency Provider Emergency Medicine; PCP Internal Medicine
DX: F33.3 Major depressive disorder, recurrent, severe with psychotic symptoms (principal); R45.851 Suicidal ideations; I10 Essential (primary) hypertension; E11.9 Type 2 diabetes mellitus without complications; Z79.899 Other long term (current) drug therapy
CPT/HCPCS: 36415; 80053; 80143; 80179; 80307; 81001; 85025; 99285; S9485

== ENCOUNTER 2025-05-05 18:40 | Inpatient (IN) | payer OTHER, SELFPAY ==
--- NOTE | ~2025-05-05 | XR_ITS ---
EXAMINATION: XR CHEST CLINICAL INFORMATION: Cough COMPARISON: None available. TECHNIQUE: 2 views of the chest were obtained. FINDINGS: The cardiac, hilar, and mediastinal contours are normal. Aortic mural calcifications. There are low lung volumes bilaterally, with mild bronchovascular crowding in the lung bases. Lungs are otherwise clear. There is no pneumothorax or effusion. There is no focal osseous or soft tissue abnormality. XR/XR chest 2V IMPRESSION: No active pulmonary disease. Electronically signed by: Ahmet Crockett MD 05/13/2025 01:20 PM [facility]
[2025-05-05 18:55] VITALS: BP 157/84; PULSE 95; RESP 16; TEMP 36.3; O2SAT 97
[2025-05-05 18:57] VITALS: BMI 25.8
--- NOTE | 2025-05-05 19:14 | PC.ADMIT ---
Addendum entered by Felipe Thayer RN 05/05/25 19:26: Pt placed on a one to one due to unsteady gait, pt appeared paranoid of male staff, stated Tell this man to look at me and I didn't know this was a male event. Pt is oriented to self only. Vital signs WNL, BP 157/84. Original Note: Sharmila Elizabeth was admitted to on 05/05/25 at 18:51 from [facility] on a 12B for treatment of an unspecified psychotic disorder. Prior to admission she was transferred from [facility] to [facility] on 03/30/25 on a section 21 for evaluation of altered mental status, when she had symptoms of mutism and refusal to eat or drink. Pt transferred to [facility] floor for treatment of dehydration, her catatonia and psych symptoms have increased. Per nurse-nurse she is allergic to zyprexa, which increases her catatonia symptoms. Upon arrival she was blunted, anxious, cooperative, and required the use of a professor of spanish for communication. Aminata was used for interpretation, she reported claustrophobia during the skin check. Vitals were obtained, the skin check revealed bruising to the left upper arm and left shoulder. Placed on one to one.
--- NOTE | 2025-05-05 23:44 | HO.PSYADMNOT ---
HPI Date of Service: 05/05/25 Chief Complaint: AMS Sources of Information: patient interviewed, chart reviewed and crisis/core team assessment reviewed HPI Subjective Notes: Section 12B Healthcare Proxy: Yes (Per record, Need to obtain. Not available at this current time. ) Narrative: Per [facility] record: patient is a 64-year-old Peruvian speaking female with past psychiatric history significant for depression, an unspecified psychotic disorder and several prior inpatient psychiatric hospitalizations for treatment of the same as well as medical history notable for hypertension, Grave's disease s/p treatment resulting in hypothyroidism now on replacement therapy, psoriasis, type 2 diabetes mellitus, vitamin D deficiency, and GERD, who initially presented to [facility] on 04/01/2025 on a section 21 from [facility] inpatient psychiatric facility for evaluation for altered mental status associated with mutism, refusing to eat and drink concerning for failure to thrive since she initially arrived on 03/30/2025. Pt seen in the ED with recs to -titrate Risperdal for psychosis and/for mood stabilization, pain close attention to any worsening of psychiatric condition and potential catatonia. Follow are some psychiatric consult progress notes from [facility]: 04/22: Patient remains disorganized with ongoing auditory hallucinations. She needs inpatient psychiatric admission for further psychiatric and medication stabilization. Currently, she is medically cleared and inpatient psychiatric bed search will be initiated. 04/26: Patient is disorganized, paranoid, and nonverbal. She is partially adherent with medications and oral intake is poor today. Recommend increasing Risperdal to 2 mg po bid. Inpatient psychiatric bed search active. She cannot leave A without psychiatric clearance. 04/27: Patient remains largely unchanged from yesterday. She is now refusing all oral medications and is mostly nonverbal, with poor oral intake. Efforts to contact her outpatient psychiatric medication provider are ongoing. Will complete [facility] and send to [facility]. Donald orders are needed to pursue more aggressive psychiatric treatment as the patient is treatment. She demonstrates poor insight and judgment secondary to her current mental status and currently lacks capacity to make medical decisions. HCPS have been invoked. 04/28: A multidisciplinary meeting was held today with the medical team, social work, and the patient's daughter/HCP (Alma) to discuss the patients ongoing clinical status. The patient shows signs consistent with catatonia, including mutism, unresponsiveness, and motor restlessness. She has been refusing oral medications and other treatment interventions. Given her clinical presentation and prior positive response to Ativan, recommend restarting Ativan for management of catatonia with additional PRN dosing as needed. The treatment plan was reviewed with the HCP, who expressed understanding and agreement. 04/29: Catatonia is improving since restarting Ativan and discontinuing Zyprexa. Johnson-Doug Catatonia Rating Scale score has decreased from 15 to 4 today. The patient is now verbal and calm. Oral intake remains low but she is eating when assisted by family. Recommend continuing Ativan orally as she is now taking oral medications. Also recommend decreasing Risperdal to 2 mg at bedtime, as she has previously done well on this dose and in the context of catatonia. 05/02: Patient is no longer catatonic and is seen this afternoon eating lunch and verbally responding. Her thought process is more goal-directed and she is able to make her needs known, however she continues to expresses paranoid delusions and intermittent auditory and visual hallucinations. Recommend decreasing Ativan as outlined below and continuing all other medications. Multidisciplinary team meeting with family is scheduled for tomorrow. Patient will need inpatient psychiatric hospitalization once medically appropriate. 05/03: On evaluation today, the patient is not responding verbally but did speak a few words to her daughter. She is not cooperating with the interview or allowing a physical exam. Recommend continuing scheduled Ativan for catatonia, with additional Ativan as needed for agitation or catatonic symptoms as outlined below. Hold Ativan if vital signs are unstable. Please avoid administering other antipsychotics, including Zyprexa or Haldol, for agitation, as these may worsen catatonia. Recommend holding the home medication Risperdal, as it may be contributing to the catatonic state, however the patient has responded well to this in the past, and can be restarted at a later time. Will hold Cogentin as there is no indication for it currently, and will discontinue hydroxyzine and trazodone prn due to limited benefit and potential burden on cognition. Continue constant student loan counselor for patient safety as appropriate. 05/04: Today, the patient is doing better than yesterday. She is speaking verbally, engaging in conversation, and wants to eat breakfast. Her catatonia is improving, likely due to holding Risperdal, intermittent use of Ativan, and no further use of additiona antipsychotics. Strongly recommend that the patient receive scheduled Ativan three times daily for catatonia. Oral Ativan should always be offered first with IV Ativan as an option if oral is refused. She also has as needed Ativan available for agitation, catatonia, or anxiety. Patient continues to experience significant fear related to paranoia and auditory hallucinations likely worsening as a result of holding Risperdal. Plan to restart Risperdal at a lower dose and titrate slowly once her catatonia is better controlled. Prior to this admission, the patient was fully independent and working. She remains at high risk for hyperactive delirium and recommend involving geriatric medicine for additional input. Patient's daughters/HCPs are in agreement with this treatment plan. Continue to involve the patient's family in her ongoing care. Social work to schedule a family meeting for tomorrow. 05/05: Patient remains disorganized, paranoid, and continues to have auditory hallucinations. Catatonia is improving. Blood work from 05/03 shows improved kidney function. Per collateral information from the family, the patient is eating and drinking. Discussed with the medical team about discontinuing IVF if they are not necessary in order to help facilitate transfer of the patient to an inpatient psychiatric unit. Continue scheduled Ativan for catatonia with preference for oral route and the alternative route is intramuscular if patient refuses. Patient's daughter/HCP (Alma) is in agreement with the change in administration of Ativan and overall treatment plan. Patient arrived on the unit, unsteady gait, cooperative with skin checks with the presence of Extrusion Manager. Patient is very slow to respond, not understand why she is here but states that she feels anxious. Patient says no when asked if she wants to be here to get treatment and to get better. Patient appears not able to comprehensive further questions regarding safety and how she feels. At this point, this provider does not able to get further information from patient. Medical record from [facility] reviewed and discharged medication list also reviewed and discussed with RN. Will continue with plans of medication from [facility] recommendation as patient has been there for over a month. Patient may be a good candidate for ECT. Most of information obtained from [facility] record. Patient is Alert and Awake, wearing hospital attire, braided hair, not able to identify her , do not know where she is, appears anxious, depression, flat affect, disorganization, thought blocked, and confused with limited speech even though she is not mute, slow to respond. Fair contact. Poor insight and impaired judgment. Not able to assess for SI/SIB/HI/AVH. No expression of safety. Not sure at this time if she is psychotic as patient is not communicated well. Do not make any delusions/paranoid statement. Need further assessment and observation. Placed on 1-1 or unsteady and fall risk until further assessment. Remain on section 12B. Will leave it to the attending to contact family for collateral. . Past Psychiatric History: IP: This is the first [facility]; Hx of [place] ~4 years ago with transfer to [place] OP: New referral to [facility]. Also, CHD SA: Denies Medical Evaluation Reviewed: Hospitalist Marge Pending [facility] Medical History (Updated 03/30/25 @ 07:12 by SAVANNA Reina) HLD (hyperlipidemia) GERD (gastroesophageal reflux disease) Diabetes HTN (hypertension) Hypothyroidism Severe recurrent major depression w/psychotic features, mood-congruent Family History: Denies Social History: Raised by parents in [place]. 13 siblings, 7 have , 3 sisters 3 brothers living To [place] age [age] years. on 09/03/21. Hx of one year of college-education major. 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 Trauma History: Denies Diagnostics Vital Signs (24Hr): Vital Signs - 24 hr 05/05/25 18:55 Temperature 97.4 F Pulse Rate 95 Respiratory Rate 16 Blood Pressure 157/84 H Pulse Oximetry 97 Oxygen Delivery Method Room Air BMI result Body Mass Index 25.8 Meds/Allergies Meds Home Medications ?Medication ?Instructions ?Recorded ?Confirmed ?Type Ativan 0.5 mg PO BID PRN 05/05/25 05/05/25 History AGITATION/ANXIETY/CATATONIA Ativan 0.5 mg PO TID 05/05/25 05/05/25 History aspirin 81 mg PO DAILY 05/05/25 05/05/25 History ergocalciferol (vitamin D2) 50,000 units PO QWEEK 05/05/25 05/05/25 History Allergies Allergies Allergy/AdvReac Type Severity Reaction Status Date / Time haloperidol (From Haldol) Allergy Unknown Verified 05/05/25 21:19 olanzapine AdvReac Unknown Verified 05/05/25 18:47 Mental Status Exam Mental Status Exam Narrative: Patient is Alert and Awake, wearing hospital attire, braided hair, not able to identify her , do not know where she is, appears anxious, depression, flat affect, disorganization, thought blocked, and confused with limited speech even though she is not mute, slow to respond. Fair contact. Poor insight and impaired judgment. Not able to assess for SI/SIB/HI/AVH. No expression of safety. Not sure at this time if she is psychotic as patient is not communicated well. Do not make any delusions/paranoid statement. Need further assessment and observation. Placed on 1-1 or unsteady and fall risk until further assessment. Remain on section 12B. Will leave it to the attending to contact family for collateral. Assessment & Plan Assessment & Plan (1) Severe recurrent major depression w/psychotic features, mood-congruent: Status: Acute Code(s): F33.3 - Major depressive disorder, recurrent, severe with psychotic symptoms (2) HTN (hypertension): Status: Acute Code(s): I10 - Essential (primary) hypertension (3) HLD (hyperlipidemia): Status: Acute Code(s): E78.5 - Hyperlipidemia, unspecified (4) Diabetes: Status: Acute Code(s): E11.9 - Type 2 diabetes mellitus without complications (5) GERD (gastroesophageal reflux disease): Status: Acute Code(s): K21.9 - Gastro-esophageal reflux disease without esophagitis Plan HPI: patient is a 64-year-old Peruvian speaking female with past psychiatric history significant for depression, an unspecified psychotic disorder and several prior inpatient psychiatric hospitalizations for treatment of the same as well as medical history notable for hypertension, Grave's disease s/p treatment resulting in hypothyroidism now on replacement therapy, psoriasis, type 2 diabetes mellitus, vitamin D deficiency, and GERD, who initially presented to [facility] on 04/01/2025 on a section 21 from [facility] inpatient psychiatric facility for evaluation for altered mental status associated with mutism, refusing to eat and drink concerning for failure to thrive since she initially arrived on 03/30/2025. Seen in the ED, paid close attention to any worsening of psychiatric condition and potential catatonia. Information not obtained from patient d/t current clinical mental status. Most of information obtain from [facility] record. Formulation/clinical reasoning: change in mental status, not able to function, ? experience catatonia, fail to thrive, not eating/drinking with very little improvement for the past month. Given the above information, patient would benefit in [place] environment for safety, ADL's project construction assistant manager, medication management and possible a candidate for ECT treatment, and refer patient OP psychiatric services for aftercare. Hospital course: 05/05/25: per Discharge medication list from [facility]: Amitriptyline 50mg at HS Vitamin D 50,000 Unit weekly: need to verify last dose given Hydroxyzine 50mg PO TID PRN for anxiety Levothyrozine 50mg mcg daily at 0600 Ativan 0.5 mg TID and BID PRN for catatonia Metformin ER 750mg daily in the morning Omeprazole 20mg daily at 0630 Diabetic protocol Trazodone PRN for insomnia Risperidone, Congentin (d/t catatonia and can restart when it is resolved) and antihypertensive meds are on hold (no need as BP was stable) Plan Patient on 05-26 for safety d/t unsteady gait and fall risk Admitted to S1. Section 12B- not have capacity to sign in and do not want to be here. Work with treatment team to do collateral with family- HCP Contact the hospitalist regarding hospitalist consultation on admission: pending. Diagnostic Discharge planning Patient educated on: other (Not able to provide education d/t current clinical mental status. ) Informed Consent: does not understand and further education needed Reason for continued inpatient stay Substantial Risk for: inability to function and med/psych decompensation Statement Statement: I have reviewed the history and physical and performed a pertinent examination on my patient. No changes have occurred unless specified. If the History and Physical was not performed prior to admission, the Hospitalist's service will be consulted for completing the admission physical. Time Spent With Patient Time: Total time managing care of this patient today ____ minutes.
--- NOTE | 2025-05-06 02:10 | PC.ADMIT ---
Sharmila was admitted to [facility] on a 12B for safety, medication reconciliation and stabilization, she is a 64 year old, appearing stated age, diagnosis depression with unspecified psychotic disorder. she arrived on the unit @ 185 from [facility]. Initially presented to [facility] in early March for evaluation of altered MS AEB mutism, refusing to eat, disorganized, paranoia, and catatonia in response to non adherence with prescribed medications. She was unable to participate in admission process therefore most information obtained from [facility] record. She is alert and awake, wearing hospital attire and incontinent brief, presenting with an unsteady gait, not able to identify her , or where she is, appears anxious, depressed, apathetic/flat affect, per [employer] she verbalizes that she feels nervous . 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 Medical diagnosis include GERD, Hyperthyroidism, Graves disease, HTN, DM2, psoriasis, and vitamin D def., TW is unable to assess for SI/ SIB/HI/AVH. No expression of safety/situational awareness. Placed on 1-1 for safety DT unsteady gait/high fall risk.
[2025-05-06 11:47] LABS: Glucose, Whole Blood 110 mg/dL (60-115)
--- NOTE | 2025-05-06 12:06 | PC.NURSE ---
Pt appeared in a catatonic state. Pt did not communicate with RN but when RN asked pt if they could take her POC and her VS, pt turned away from RN and shook her head. RN approached pt with azalea holbrookpreRios, pt did not communicate with buckle attaching machine operator road roller operator hot mix. Pt refused morning medications by pushing away the medicine cup towards the RN. Provider Sylvia Haro notified.
--- NOTE | 2025-05-06 12:51 | HO.PSYCHPN ---
Subjective Subjective Date of Service: 05/06/25 Reason For Visit: Catatonia Healthcare Proxy: Yes Mental Status Exam Mental Status Exam Narrative: Patient is Alert and Awake, wearing hospital attire, braided hair, in w/c, not responsive verbally, makes only brief eye contact, vacant stare, does not appear in physical distress flat facial expression Motionless Begins raising hand when asked but withdraws arm. Not following verbal commands, unable to get permission for hands on examination at this time Has not been accepting medication PO. Presents as catatonic, has prescribed PO Ativan . Placed on 1-1 for safety, unsteady and fall risk. Patient on s12 b and team contacting family re: HCP. Diagnostics Vital Signs (24Hr): Vital Signs - 24 hr 05/05/25 18:55 Temperature 97.4 F Pulse Rate 95 Respiratory Rate 16 Blood Pressure 157/84 H Pulse Oximetry 97 Oxygen Delivery Method Room Air BMI result Body Mass Index 25.8 Labs 05/09/25 15:47 05/09/25 15:47 Labs: Laboratory Results - last 48 hr 05/06/25 11:35 POC Glucose 110 Medications Medications Current Medications Acetaminophen (Acetaminophen 325 Mg Tablet) 650 mg PO Q6H PRN PRN Reason: Headache/Pain, Scale 1-10 Al Hydroxide/Mg Hydroxide (Magnesium Hydrox/Alum Hydrox 30 Ml Oral.Susp) 30 ml PO Q6H PRN PRN Reason: Heartburn/Nausea Amitriptyline HCl (Amitriptyline Hcl 50 Mg Tablet) 50 mg PO BEDTIME [facility] Last Admin: 05/05/25 21:51 Dose: Not Given Aspirin (Aspirin Enteric Coated 81 Mg Tablet.) 81 mg PO DAILY [facility] Last Admin: 05/06/25 08:32 Dose: Not Given Dextrose (Dextrose 50 % 25 Gm/50 Ml Syringe) 25 gm IVPUSH Q15M PRN; Protocol PRN Reason: per Hypoglycemia Standing Ord. Glucose (Glucose Gel 15 Gm Gel..Gram.) 15 gm PO Q15M PRN; Protocol PRN Reason: per Hypoglycemia Standing Ord. Hydroxyzine HCl (Hydroxyzine Hcl 50 Mg Tablet) 50 mg PO TID PRN PRN Reason: Anxiety Insulin Human Lispro (Insulin Lispro 100 Unit/Ml 3 Ml Vial) 0 unit SUBCUT QIDACHS [facility]; Protocol Last Admin: 05/06/25 11:52 Dose: Not Given Levothyroxine Sodium (Levothyroxine Sodium 50 Mcg Tablet) 50 mcg PO DAILY@0600 [facility] Last Admin: 05/06/25 05:55 Dose: Not Given Lorazepam (Lorazepam 0.5 Mg Tablet) 0.5 mg PO TID [facility] Lorazepam (Lorazepam 0.5 Mg Tablet) 0.5 mg PO TID PRN PRN Reason: AGITATION/ANXIETY/CATATONIA Magnesium Hydroxide (Milk Of Magnesia 30 Ml Oral.Susp) 30 ml PO DAILY PRN PRN Reason: Constipation Metformin HCl (Metformin Hcl Er 750 Mg Tab.Er.24h) 750 mg PO DAILY [facility] Last Admin: 05/06/25 08:32 Dose: Not Given Nicotine (Nicotine 21 Mg Patch.Td24) 21 mg TRANSDERMA DAILY PRN PRN Reason: nicotine craving Non-Formulary Medication (Ergocalciferol (Vitamin D2)) 50,000 units PO Q7D [facility] Omeprazole (Omeprazole 20 Mg Capsule.Dr) 20 mg PO DAILY@0630 [facility] Last Admin: 05/06/25 05:55 Dose: Not Given Trazodone HCl (Trazodone Hcl 50 Mg Tablet) 50 mg PO BEDTIME MRX1 PRN PRN Reason: Insomnia Allergies Allergies Allergy/AdvReac Type Severity Reaction Status Date / Time haloperidol (From Haldol) Allergy Unknown Verified 05/05/25 21:19 olanzapine AdvReac Unknown Verified 05/05/25 18:47 Assessment & Plan Assessment & Plan (1) Severe recurrent major depression w/psychotic features, mood-congruent: Status: Acute Code(s): F33.3 - Major depressive disorder, recurrent, severe with psychotic symptoms (2) HTN (hypertension): Status: Acute Code(s): I10 - Essential (primary) hypertension (3) HLD (hyperlipidemia): Status: Acute Code(s): E78.5 - Hyperlipidemia, unspecified (4) Diabetes: Status: Acute Code(s): E11.9 - Type 2 diabetes mellitus without complications (5) GERD (gastroesophageal reflux disease): Status: Acute Code(s): K21.9 - Gastro-esophageal reflux disease without esophagitis (6) Catatonia associated with another mental disorder: Status: Acute Code(s): F06.1 - Catatonic disorder due to known physiological condition Plan HPI: patient is a 64-year-old Slovak speaking female with past psychiatric history significant for depression, an unspecified psychotic disorder and several prior inpatient psychiatric hospitalizations for treatment of the same. Her medical history is notable for hypertension, Grave's disease s/p treatment resulting in hypothyroidism now on replacement therapy, psoriasis, type 2 diabetes mellitus, vitamin D deficiency, and GERD. Patient initially presented to [facility] on 04/01/2025 on a section 21 from [facility] psychiatric facility for evaluation ofr altered mental status associated with mutism, refusing to eat and drink concerning for failure to thrive since she had initially arrived to [facility] on 03/30/2025. Information not obtained from patient d/t current clinical mental status. Most of information obtain from [facility] record. Formulation/clinical reasoning: change in mental status, not able to function, ? experience catatonia, fail to thrive, not eating/drinking with very little improvement for the past month. 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 Hospital course: 05/05/25: per Discharge medication list from [facility]: Amitriptyline 50mg at HS Vitamin D 50,000 Unit weekly: need to verify last dose given Hydroxyzine 50mg PO TID PRN for anxiety Levothyrozine 50mg mcg daily at 0600 Ativan 0.5 mg TID and BID PRN for catatonia Metformin ER 750mg daily in the morning Omeprazole 20mg daily at 0630 Diabetic protocol Trazodone PRN for insomnia Risperidone, Congentin (d/t catatonia and can restart when it is resolved) and antihypertensive meds are on hold (no need as BP was stable) Plan Patient on 05-26 for safety d/t unsteady gait and fall risk Admitted to S1. Section 12B- not have capacity to sign in and do not want to be here. Work with treatment team to do collateral with family- HCP Contact the hospitalist regarding hospitalist consultation on admission: pending. Diagnostic Discharge planning Reason for continued inpatient stay Substantial Risk for: inability to function, rapid decompensation, med/psych decompensation and other (catatonic state) Time Spent With Patient Time: Total time managing care of this patient today ____ minutes.
--- NOTE | 2025-05-06 13:47 | HO.PM.IMCN ---
History of Present Illness Data of Consult Service Date: 05/06/25 Primary Care Provider: Unknown Physician HPI Reason for consult: Medical consult 64-year-old female with a past medical history of schizophrenia, psychosis, type 2 diabetes, hyperlipidemia, and hypothyroidism presented to [facility] from [facility] on a section 12 for failure to thrive and combative behavior. While at [facility] she experienced dizziness and vertigo, an MRI was done which showed a small area of ischemia in her corpus cavernosum likely possible subacute infarct. Not felt to be related to her episode of dizziness and vertigo. She underwent an echo with no acute findings with a normal EF, she underwent a CTA of head and neck with no major occlusions or stenosis. Will need follow up in [facility] stroke clinic. Patient discharged on Plavix for 3 weeks ending 05/11 and aspirin then daily aspirin. Patient was also treated for an acute kidney injury, she had urine studies which were normal, resolved with IV fluids. On exam she follows simple commands. She is in no apparent distress. Review of Systems Review of Systems: Denies chest pain, abdominal pain. [facility] Medical History (Updated 03/30/25 @ 07:12 by SAVANNA Reina) HLD (hyperlipidemia) GERD (gastroesophageal reflux disease) Diabetes HTN (hypertension) Hypothyroidism Severe recurrent major depression w/psychotic features, mood-congruent Family History (Updated 09/09/21 @ 11:59 by Slava Rodriguez MD) Other HTN (hypertension) Social History Household Members: Children Housing: House Do you presently have visiting nurse or other home services: No Patient Tobacco Use Status: Never used Tobacco Smoked in Last 30 Days: No e-Cigarette/Vaping Use: Never Used Patient Interested in Nicotine Replacement: No Patient Given Instructions on How to Stop Smoking: No Second Hand Smoke Exposure: No Currently Displaying Signs/Symptoms of Drug Intoxication Withdrawal: No Have you been hit, kicked, punched, or otherwise hurt by someone within the past year? If so, by whom?: No Do you feel safe in your current relationship?: No Current Relationship Is there a partner from a previous relationship who is making you feel unsafe now?: No Are you made to feel afraid or neglected: No Advance Directives: No Advance Directives Information Provided: No Do you have thoughts of harming others: None Do you have a plan to hurt others: No Plan Recently lost weight without trying: Unsure Eating poorly because of decreased appetite: No Nutrition Risks: No Nutritional Risk Patient : No : No Poor oral hygiene: No service: No Sexual orientation: Straight/Heterosexual Meds Allergies Allergy/AdvReac Type Severity Reaction Status Date / Time haloperidol (From Haldol) Allergy Unknown Verified 05/05/25 21:19 olanzapine AdvReac Unknown Verified 05/05/25 18:47 Active Medications: Current Medications Acetaminophen (Acetaminophen 325 Mg Tablet) 650 mg PO Q6H PRN PRN Reason: Headache/Pain, Scale 1-10 Al Hydroxide/Mg Hydroxide (Magnesium Hydrox/Alum Hydrox 30 Ml Oral.Susp) 30 ml PO Q6H PRN PRN Reason: Heartburn/Nausea Amitriptyline HCl (Amitriptyline Hcl 50 Mg Tablet) 50 mg PO BEDTIME [facility] Last Admin: 05/05/25 21:51 Dose: Not Given Aspirin (Aspirin Enteric Coated 81 Mg Tablet.Dr) 81 mg PO DAILY [facility] Last Admin: 05/06/25 08:32 Dose: Not Given Dextrose (Dextrose 50 % 25 Gm/50 Ml Syringe) 25 gm IVPUSH Q15M PRN; Protocol PRN Reason: per Hypoglycemia Standing Ord. Glucose (Glucose Gel 15 Gm Gel..Gram.) 15 gm PO Q15M PRN; Protocol PRN Reason: per Hypoglycemia Standing Ord. Hydroxyzine HCl (Hydroxyzine Hcl 50 Mg Tablet) 50 mg PO TID PRN PRN Reason: Anxiety Insulin Human Lispro (Insulin Lispro 100 Unit/Ml 3 Ml Vial) 0 unit SUBCUT QIDACHS [facility]; Protocol Last Admin: 05/06/25 11:52 Dose: Not Given Levothyroxine Sodium (Levothyroxine Sodium 50 Mcg Tablet) 50 mcg PO DAILY@0600 [facility] Last Admin: 05/06/25 05:55 Dose: Not Given Lorazepam (Lorazepam 0.5 Mg Tablet) 0.5 mg PO TID [facility] Lorazepam (Lorazepam 0.5 Mg Tablet) 0.5 mg PO TID PRN PRN Reason: AGITATION/ANXIETY/CATATONIA Magnesium Hydroxide (Milk Of Magnesia 30 Ml Oral.Susp) 30 ml PO DAILY PRN PRN Reason: Constipation Metformin HCl (Metformin Hcl Er 750 Mg Tab.Er.24h) 750 mg PO DAILY [facility] Last Admin: 05/06/25 08:32 Dose: Not Given Nicotine (Nicotine 21 Mg Patch.Td24) 21 mg TRANSDERMA DAILY PRN PRN Reason: nicotine craving Non-Formulary Medication (Ergocalciferol (Vitamin D2)) 50,000 units PO Q7D [facility] Omeprazole (Omeprazole 20 Mg Capsule.Dr) 20 mg PO DAILY@0630 [facility] Last Admin: 05/06/25 05:55 Dose: Not Given Trazodone HCl (Trazodone Hcl 50 Mg Tablet) 50 mg PO BEDTIME MRX1 PRN PRN Reason: Insomnia Home Medications ?Medication ?Instructions ?Recorded ?Confirmed ?Last Taken ?Type Ativan 0.5 mg PO BID PRN 05/05/25 05/05/25 Unknown History AGITATION/ANXIETY/CATATONIA Ativan 0.5 mg PO TID 05/05/25 05/05/25 Unknown History aspirin 81 mg PO DAILY 05/05/25 05/05/25 Unknown History ergocalciferol (vitamin D2) 50,000 units PO QWEEK 05/05/25 05/05/25 Unknown History Physical Exam Vital Signs and Narrative: Vital Signs: Last Vital Signs Temp 97.4 F 05/05/25 18:55 Pulse 95 05/05/25 18:55 Resp 16 05/05/25 18:55 BP 157/84 H 05/05/25 18:55 Pulse Ox 97 05/05/25 18:55 O2 Del Method Room Air 05/05/25 18:55 BMI result Body Mass Index 25.8 Alert, follows simple commands. Neuro: CN II-X11 intact, no obvious neurological deficits EYES: PERRLA, EOM intact Cardiac: S1 S2 RRR, No ectopy Pulmonary: Lungs clear to auscultation, No increased WOB. Abdominal: BS active in all 4 quadrants, no guarding or tenderness MSK: Strength 5/5 upper and lower extremities. : Deferred Extremities: No edema in lower extremities Psych: Quiet and cooperative with exam. Skin: Warm and dry, Intact Results Labs Labs: Laboratory Results - last 24 hr 05/06/25 11:35 POC Glucose 110 Assessment and Plan (1) HTN (hypertension): Status: Acute Plan 64-year-old female with a past medical history listed below admitted to inpatient psychiatric unit for stabilization. Schizophrenia/catatonia Treatment per psychiatric team Type 2 diabetes Continue metformin 750 daily Hemoglobin A1c pending Hypothyroidism Continue levothyroxine TSH pending Hyperlipidemia Lipids pending Subacute infarct Continue with Plavix in aspirin dual therapy for a total of 3 weeks Then continue aspirin daily We will need follow up with stroke clinic at [facility] upon discharge Thank you for allowing me to participate in the care of this patient. Will follow with you, please notify medical provider with any changes in condition or concerns.
--- NOTE | 2025-05-06 14:55 | MHC.CLN ---
NUTRITION PATIENT WITH RECENT HX OF REFUSING TO EAT. DIET LIBERALIZED TO REGULAR TO PROMOTE PO INTAKE. RD TO MONITOR WEEKLY.
[2025-05-06 17:26] VITALS: BP 135/82; PULSE 85; RESP 18; TEMP 36.7; O2SAT 97
[2025-05-06 20:00] VITALS: RESP 16
--- NOTE | 2025-05-07 10:13 | HO.PSYEVENT ---
Event Note Date of Service: 05/07/25 Psych Restraint Event Note: Discussed with nursing. This morning patient has been intermittently crawlng on the floor. Around 8:55 she started to block access to other patients' room did not respond to verbal redirection and then grabbed onto the RN and the med cart. Brief physical hold was necessary as patient was continuing to grab onto staff and refused to let go despite multiple repeated verbal attempts to de-escalate verbally. Brief physical hold took place for less than one minute. One-to-one remained with patient for safety. Once the physical hold was engaged patient quickly de-escalated and was able to be released from the hold. She remained on the floor, but was not deemed to be an eminent safety risk to self or others. She continues to refuse voluntary medication administration, physically pushing the nurse's hands away when medications were offered. She continues to be on a 1:1 monitoring status at this time. Time Spent With Patient Time: Total time managing care of this patient today _20__ minutes.
--- NOTE | 2025-05-07 10:44 | PC.NURSE ---
Addendum entered by Maria A Mckeon RN 05/10/25 14:16: Spoke with pt's HCP Emi (daughter) regarding the physical restraint. Explained the duration and necessity for medication administration. HCP stated, that's okay . HCP Alma also stated she and sister will be coming by shortly to visit with mom. Original Note: Restraint Note: 05/07/25 08:57 to 08:58 physical hold for less than one minute. Before restraint, pt has been on 1-to-1 for safety. Recently admitted on 05/05/25. Pt began crawling on floor and sat in front of other pt's room blocking access to door. Pt was redirected multiple times verbally. Pt did not respond verbally or physically move away from other pt's door. When approached by RNs, pt put hands on RNs. Pt was offered med and briefly wrists were held to be offered Ativan 0.5mg crushed and mixed with water and given in syringe PO. Pt's writs were released as soon as med was administered. Pt continues to be on 1-to-1. Pt pushed other medications away. Pt remains nonverbal. Pt refused all vital sign check. Restraint order and paperwork completed.
--- NOTE | 2025-05-07 17:31 | HO.PSYCHPN ---
Subjective Subjective Date of Service: 05/07/25 Reason For Visit: AMS Subjective Notes: Conditional Voluntary Healthcare Proxy: Yes Guardianship: No Medical Problems Affecting Mental Status: No Interim History: Episode of agitation this morning requiring brief physical hold. After, patient continued to appear confused, erratic. Not following directions regarding ambulation and safety on the unit. Requiring frequent redirection. Appears confused and paranoid. Refused metformin and Aspirin. Medication Compliance: Intermittent Side effects from medications: No Attending Groups: No Review of Systems Acute medical concerns: No Medical Review of Systems: unchanged Mental Status Exam Mental Status Exam Narrative: Patient Appearance: Well Groomed, adequate hygiene Patient Behavior: uncooperartive Level of Consciousness: Awake, alert Patient Orientation: grossly to the encounter Memory: grossly intact to recent events Psychomotor: mild agitation, erratic wandering; seems to be searching for exits Speech: paucity of speech Mood: (did not respond) Affect: distressed appearing Thought Process: disorganized Thought Content: paucity of material Hallucinations: appears preoccupied Delusions: appears paranoid Insight: impaired Judgment: impaired Impulsivity: low Diagnostics Vital Signs (24Hr): Vital Signs - 24 hr 05/06/25 20:00 Respiratory Rate 16 BMI result Body Mass Index 25.8 Labs Labs: Laboratory Results - last 48 hr 05/06/25 11:35 POC Glucose 110 Medications Medications Current Medications Acetaminophen (Acetaminophen 325 Mg Tablet) 650 mg PO Q6H PRN PRN Reason: Headache/Pain, Scale 1-10 Al Hydroxide/Mg Hydroxide (Magnesium Hydrox/Alum Hydrox 30 Ml Oral.Susp) 30 ml PO Q6H PRN PRN Reason: Heartburn/Nausea Amitriptyline HCl (Amitriptyline Hcl 50 Mg Tablet) 50 mg PO BEDTIME PRN PRN Reason: Sleep Aspirin (Aspirin Enteric Coated 81 Mg Tablet.) 81 mg PO DAILY [facility] Last Admin: 05/07/25 09:25 Dose: Not Given Clopidogrel Bisulfate (Clopidogrel Bisulfate 75 Mg Tablet) 75 mg PO DAILY [facility] Stop: 05/11/25 09:01 Last Admin: 05/07/25 09:25 Dose: Not Given Dextrose (Dextrose 50 % 25 Gm/50 Ml Syringe) 25 gm IVPUSH Q15M PRN; Protocol PRN Reason: per Hypoglycemia Standing Ord. Glucose (Glucose Gel 15 Gm Gel..Gram.) 15 gm PO Q15M PRN; Protocol PRN Reason: per Hypoglycemia Standing Ord. Insulin Human Lispro (Insulin Lispro 100 Unit/Ml 3 Ml Vial) 0 unit SUBCUT QIDACHS [facility]; Protocol Last Admin: 05/07/25 11:45 Dose: Not Given Levothyroxine Sodium (Levothyroxine Sodium 50 Mcg Tablet) 50 mcg PO DAILY@0600 [facility] Last Admin: 05/07/25 06:17 Dose: Not Given Lorazepam (Lorazepam 0.5 Mg Tablet) 0.5 mg PO TID [facility] Last Admin: 05/07/25 17:15 Dose: Not Given Lorazepam (Lorazepam 0.5 Mg Tablet) 0.5 mg PO TID PRN PRN Reason: AGITATION/ANXIETY/CATATONIA Magnesium Hydroxide (Milk Of Magnesia 30 Ml Oral.Susp) 30 ml PO DAILY PRN PRN Reason: Constipation Metformin HCl (Metformin Hcl Er 750 Mg Tab.Er.24h) 750 mg PO DAILY [facility] Last Admin: 05/07/25 09:25 Dose: Not Given Nicotine (Nicotine 21 Mg Patch.Td24) 21 mg TRANSDERMA DAILY PRN PRN Reason: nicotine craving Non-Formulary Medication (Ergocalciferol (Vitamin D2)) 50,000 units PO Q7D [facility] Pantoprazole Sodium (Pantoprazole Sodium 20 Mg Tablet.Dr) 40 mg PO DAILY@0630 [facility] Last Admin: 05/07/25 06:17 Dose: Not Given Trazodone HCl (Trazodone Hcl 50 Mg Tablet) 50 mg PO BEDTIME MRX1 PRN PRN Reason: Insomnia Allergies Allergies Allergy/AdvReac Type Severity Reaction Status Date / Time haloperidol (From Haldol) Allergy Unknown Verified 05/05/25 21:19 olanzapine AdvReac Unknown Verified 05/05/25 18:47 Assessment & Plan Assessment & Plan (1) HTN (hypertension): Status: Acute Code(s): I10 - Essential (primary) hypertension Plan 64-year-old female with a past medical history listed below admitted to inpatient psychiatric unit for stabilization. Schizophrenia/catatonia Treatment per psychiatric team Type 2 diabetes Continue metformin 750 daily Hemoglobin A1c pending Hypothyroidism Continue levothyroxine TSH pending Hyperlipidemia Lipids pending Subacute infarct Continue with Plavix in aspirin dual therapy for a total of 3 weeks Then continue aspirin daily We will need follow up with stroke clinic at [facility] upon discharge Thank you for allowing me to participate in the care of this patient. Will follow with you, please notify medical provider with any changes in condition or concerns. Reason for continued inpatient stay Substantial Risk for: inability to function Time Spent With Patient Time: Total time managing care of this patient today _35___ minutes.
[2025-05-07 20:00] VITALS: RESP 16
--- NOTE | 2025-05-07 23:21 | HO.BHRESTREX ---
Behavioral Restraint Exam Behavioral Health Restraint Exam Type of Restraint: Physical Hold Reason for Restraint: Substantial Risk and Substantial Risk of Harm to Others Behavioral Assessment / Plan: Concerns / further recommendations, explain below: Comment: MSE: Patient Appearance: Well Groomed, adequate hygiene Patient Behavior: uncooperartive Level of Consciousness: Awake, alert Patient Orientation: grossly to the encounter Memory: grossly intact to recent events Psychomotor: mild agitation, erratic wandering; seems to be searching for exits Speech: paucity of speech Mood: (did not respond) Affect: distressed appearing Thought Process: disorganized Thought Content: paucity of material Hallucinations: appears preoccupied Delusions: appears paranoid Insight: impaired Judgment: impaired Impulsivity: low patient remains erratic, continue on 1:1 monitoring
--- NOTE | 2025-05-08 13:23 | HO.PSYCHPN ---
Subjective Subjective Date of Service: 05/08/25 Reason For Visit: AMS Subjective Notes: Conditional Voluntary Healthcare Proxy: Yes Guardianship: No Medical Problems Affecting Mental Status: No Interim History: Patient continues to struggle with erratic behavior, frequently putting herself on the floor and crawling, uncooperative and resistant to redirection by staff, including 1: one monitor. When editorial writer attempted to engage with her, she was in her room, started crawling towards editorial writer, seemingly to grab writers's leg. Tin Recovery Worker invaded her grasped and stepped out of the room. On re-approach she was still lying on the floor on her back with 1:1 monitor nearby. Medication Compliance: No Side effects from medications: No Attending Groups: No Review of Systems Acute medical concerns: No Medical Review of Systems: unchanged Mental Status Exam Mental Status Exam Narrative: Patient Appearance: Well Groomed, adequate hygiene Patient Behavior: uncooperative Level of Consciousness: Awake, alert Patient Orientation: unable to assess Memory: unable to assess Psychomotor: agitation, crawling on the floor Speech: paucity of speech, moaning Mood: (did not respond) Affect: distressed appearing Thought Process: disorganized Thought Content: paucity of material Hallucinations: appears preoccupied Delusions: appears paranoid Insight: impaired Judgment: impaired Impulsivity: low Diagnostics Vital Signs (24Hr): Vital Signs - 24 hr 05/07/25 20:00 Respiratory Rate 16 BMI result Body Mass Index 25.8 Medications Medications Current Medications Acetaminophen (Acetaminophen 325 Mg Tablet) 650 mg PO Q6H PRN PRN Reason: Headache/Pain, Scale 1-10 Al Hydroxide/Mg Hydroxide (Magnesium Hydrox/Alum Hydrox 30 Ml Oral.Susp) 30 ml PO Q6H PRN PRN Reason: Heartburn/Nausea Amitriptyline HCl (Amitriptyline Hcl 50 Mg Tablet) 50 mg PO BEDTIME PRN PRN Reason: Sleep Aspirin (Aspirin Enteric Coated 81 Mg Tablet.Dr) 81 mg PO DAILY ON LICENSE OF [facility] Last Admin: 05/08/25 10:39 Dose: Not Given Clopidogrel Bisulfate (Clopidogrel Bisulfate 75 Mg Tablet) 75 mg PO DAILY ON LICENSE OF [facility] Stop: 05/11/25 09:01 Last Admin: 05/08/25 10:39 Dose: Not Given Dextrose (Dextrose 50 % 25 Gm/50 Ml Syringe) 25 gm IVPUSH Q15M PRN; Protocol PRN Reason: per Hypoglycemia Standing Ord. Glucose (Glucose Gel 15 Gm Gel..Gram.) 15 gm PO Q15M PRN; Protocol PRN Reason: per Hypoglycemia Standing Ord. Insulin Human Lispro (Insulin Lispro 100 Unit/Ml 3 Ml Vial) 0 unit SUBCUT QIDACHS ON LICENSE OF [facility]; Protocol Last Admin: 05/08/25 12:18 Dose: Not Given Levothyroxine Sodium (Levothyroxine Sodium 50 Mcg Tablet) 50 mcg PO DAILY@0600 ON LICENSE OF [facility] Last Admin: 05/08/25 06:10 Dose: Not Given Lorazepam (Lorazepam 0.5 Mg Tablet) 0.5 mg PO TID ON LICENSE OF [facility] Last Admin: 05/08/25 10:39 Dose: Not Given Lorazepam (Lorazepam 0.5 Mg Tablet) 0.5 mg PO TID PRN PRN Reason: AGITATION/ANXIETY/CATATONIA Magnesium Hydroxide (Milk Of Magnesia 30 Ml Oral.Susp) 30 ml PO DAILY PRN PRN Reason: Constipation Metformin HCl (Metformin Hcl Er 750 Mg Tab.Er.24h) 750 mg PO DAILY ON LICENSE OF [facility] Last Admin: 05/08/25 10:39 Dose: Not Given Nicotine (Nicotine 21 Mg Patch.Td24) 21 mg TRANSDERMA DAILY PRN PRN Reason: nicotine craving Pantoprazole Sodium (Pantoprazole Sodium 20 Mg Tablet.Dr) 40 mg PO DAILY@0630 ON LICENSE OF [facility] Last Admin: 05/08/25 06:10 Dose: Not Given Trazodone HCl (Trazodone Hcl 50 Mg Tablet) 50 mg PO BEDTIME MRX1 PRN PRN Reason: Insomnia Allergies Allergies Allergy/AdvReac Type Severity Reaction Status Date / Time haloperidol (From Haldol) Allergy Unknown Verified 05/05/25 21:19 olanzapine AdvReac Unknown Verified 05/05/25 18:47 Assessment & Plan Assessment & Plan (1) HTN (hypertension): Status: Acute Code(s): I10 - Essential (primary) hypertension Plan patient is a 64-year-old Sinhala speaking female with past psychiatric history significant for depression, an unspecified psychotic disorder and several prior inpatient psychiatric hospitalizations for treatment of the same as well as medical history notable for hypertension, Grave's disease s/p treatment resulting in hypothyroidism now on replacement therapy, psoriasis, type 2 diabetes mellitus, vitamin D deficiency, and GERD, who initially presented to [facility] on 04/01/2025 on a section 21 from [facility] inpatient [facility] facility for evaluation for altered mental status associated with mutism, refusing to eat and drink concerning for failure to thrive since she initially arrived on 03/30/2025. Seen in the ED, paid close attention to any worsening of psychiatric condition and potential catatonia. Information not obtained from patient d/t current clinical mental status. Most of information obtain from [facility] record. Formulation/clinical reasoning: change in mental status, not able to function, ? experience catatonia, fail to thrive, not eating/drinking with very little improvement for the past month. Given the above information, patient would benefit in [facility] environment for safety, ADL's materials assistant, medication management and possible a candidate for ECT treatment, and refer patient OP psychiatric services for aftercare. Hospital course: 05/05/25: per Discharge medication list from [facility]: Amitriptyline 50mg at HS Vitamin D 50,000 Unit weekly: need to verify last dose given Hydroxyzine 50mg PO TID PRN for anxiety Levothyrozine 50mg mcg daily at 0600 Ativan 0.5 mg TID and BID PRN for catatonia Metformin ER 750mg daily in the morning Omeprazole 20mg daily at 0630 no changes today 05/08 primary team to determine if invoked HCP at [facility] on 04/28/25 is a valid document for the current hospitalization Patient educated on: diagnosis and medication risk/benefits Informed Consent: does not understand Reason for continued inpatient stay Substantial Risk for: inability to function Time Spent With Patient Time: Total time managing care of this patient today __15__ minutes.
--- NOTE | 2025-05-08 18:35 | PC.NURSE ---
When family in to visit she was sitting on the floor and when her daughters told her to get up she said she was putting on a show for us and it was on purpose.
[2025-05-08 20:00] VITALS: RESP 16
[2025-05-09 07:01] LABS: Glucose, Whole Blood 80 mg/dL (60-115)
--- NOTE | 2025-05-09 14:07 | PC.NURSE ---
Sharmila did not eat breakfast or lunch, also did not drink any fluids. She refused all meds and fingerstick blood sugars. Provider notified.
[2025-05-09 15:58] LABS: MANUAL DIFF FLAG NO
[2025-05-09 16:01] LABS: Hematocrit 34.2 % (37.0-47.0); Hemoglobin 11.3 g/dl (12.0-16.0); Imm Gran Abs Auto 0.03 X10*3/uL (0.00-0.03); Imm Gran Pct Auto 0.3 % (0.0-0.4); Lymphocytes Absolute Auto 2.0 X10*3/uL (1.2-4.9); Mean Corpuscular HGB Conc 33.0 g/dl (31.0-35.0); Mean Corpuscular Hemoglobin 29.8 pg (27.0-33.0); Mean Corpuscular Volume 90.2 fL (80.0-98.0); NRBC Abs Auto 0.000 X10*3/uL (0.0-0.012); NRBC Pct Auto 0.0 /100WBC (0.0-0.2); Platelet Count 281 X10*3/uL (160-400); Red Blood Count 3.79 X10*6/uL (4.20-5.50); White Blood Count 9.1 X10*3/uL (4.8-10.8)
--- NOTE | 2025-05-09 16:05 | HO.BHRESTREX ---
Behavioral Restraint Exam Behavioral Health Restraint Exam Type of Restraint: Physical Hold Reason for Restraint: Substantial Risk (urgent medical need, no PO intake, catatonia, refusing medications) Medical Concerns for Restraint: No medical concerns, pt w/o acute inj / no noted resp/VS abnormalities (did not allow vital signs) Behavioral Assessment / Plan: Concerns / further recommendations, explain below: Comment: Patient has invoked HCP, will need continued monitoring of medical status and lab work due to catatonia
--- NOTE | 2025-05-09 16:09 | P.PNPSI_ITS ---
Subjective Subjective Date of Service: 05/09/25 Reason For Visit: Catatonia Subjective Notes: Conditional Voluntary Healthcare Proxy: Yes (affirmed) Guardianship: No Medical Problems Affecting Mental Status: Yes Interim History: Remains catatonic, negativistic/oppositional behaviors, does not stay in bed, lowers self to floor where she rolls around or lays stretching arms repeatedly. Not eating or drinking, not taking medications. Considered transfer to medicine, labs obtained with hands on approved by dtr/HCP, IM medications were also ordered, with hands on if needed as approved by the affirmed HCP agent but not given by nursing staff, per RN coordinator, nursing staff were concerned that patient would aggressively resist Medication Compliance: No Side effects from medications: No Attending Groups: No Review of Systems Acute medical concerns: Yes catatonia, not eating/drinking/taking medication Medical Review of Systems: unchanged Review of Systems Review of Systems unable to obtain Yes Unobtainable due to mental status Mental Status Exam Mental Status Exam Narrative: MSE patient on 1:1, on ground, rolling, not responding to questions, briefly makes eye contact. Vacant expression. Not responding to verbal instructions, pulling away when staff try to assiste her to get up. Unable to get any information. Per nursing not accepting medications or PO (meals/fluids) Nonverbal or mumbles unintelligibly Unable to fully assess MS i/j poor Diagnostics Vital Signs (24Hr): Vital Signs - 24 hr 05/08/25 20:00 Respiratory Rate 16 BMI result Body Mass Index 25.8 Labs 05/09/25 15:47 05/09/25 15:47 Labs: Laboratory Results - last 48 hr 05/09/25 05/09/25 05/09/25 06:54 15:47 15:48 WBC 9.1 RBC 3.79 L Hgb 11.3 L Hct 34.2 L MCV 90.2 MCH 29.8 MCHC 33.0 RDW 15.4 Plt Count 281 MPV 12.2 Immature Gran % (Auto) 0.3 Neut % (Auto) 67.1 Lymph % (Auto) 22.1 Will % (Auto) 8.0 Eos % (Auto) 1.9 Baso % (Auto) 0.6 Lymph # (Auto) 2.0 Will # (Auto) 0.7 Eos # (Auto) 0.2 Baso # (Auto) 0.1 Abs Immat Gran (auto) 0.03 Absolute Neuts (auto) 6.1 Absolute Nucleated RBC 0.000 Nucleated RBC % (auto) 0.0 POC Glucose 80 TSH Cancelled Medications Medications Current Medications Acetaminophen (Acetaminophen 325 Mg Tablet) 650 mg PO Q6H PRN PRN Reason: Headache/Pain, Scale 1-10 Al Hydroxide/Mg Hydroxide (Magnesium Hydrox/Alum Hydrox 30 Ml Oral.Susp) 30 ml PO Q6H PRN PRN Reason: Heartburn/Nausea Amitriptyline HCl (Amitriptyline Hcl 50 Mg Tablet) 50 mg PO BEDTIME PRN PRN Reason: Sleep Aspirin (Aspirin Enteric Coated 81 Mg Tablet.Dr) 81 mg PO DAILY [facility] Last Admin: 05/09/25 09:31 Dose: Not Given Clopidogrel Bisulfate (Clopidogrel Bisulfate 75 Mg Tablet) 75 mg PO DAILY [facility] Stop: 05/11/25 09:01 Last Admin: 05/09/25 09:32 Dose: Not Given Dextrose (Dextrose 50 % 25 Gm/50 Ml Syringe) 25 gm IVPUSH Q15M PRN; Protocol PRN Reason: per Hypoglycemia Standing Ord. Glucose (Glucose Gel 15 Gm Gel..Gram.) 15 gm PO Q15M PRN; Protocol PRN Reason: per Hypoglycemia Standing Ord. Insulin Human Lispro (Insulin Lispro 100 Unit/Ml 3 Ml Vial) 0 unit SUBCUT QIDACHS [facility]; Protocol Last Admin: 05/09/25 12:56 Dose: Not Given Levothyroxine Sodium (Levothyroxine Sodium 50 Mcg Tablet) 50 mcg PO DAILY@0600 [facility] Last Admin: 05/09/25 05:02 Dose: Not Given Lorazepam (Lorazepam 0.5 Mg Tablet) 0.5 mg PO TID [facility] Last Admin: 05/09/25 15:26 Dose: Not Given Lorazepam (Lorazepam 0.5 Mg Tablet) 0.5 mg PO TID PRN PRN Reason: AGITATION/ANXIETY/CATATONIA Magnesium Hydroxide (Milk Of Magnesia 30 Ml Oral.Susp) 30 ml PO DAILY PRN PRN Reason: Constipation Metformin HCl (Metformin Hcl Er 750 Mg Tab.Er.24h) 750 mg PO DAILY [facility] Last Admin: 05/09/25 09:32 Dose: Not Given Nicotine (Nicotine 21 Mg Patch.Td24) 21 mg TRANSDERMA DAILY PRN PRN Reason: nicotine craving Pantoprazole Sodium (Pantoprazole Sodium 20 Mg Tablet.) 40 mg PO DAILY@0630 [facility] Last Admin: 05/09/25 05:02 Dose: Not Given Trazodone HCl (Trazodone Hcl 50 Mg Tablet) 50 mg PO BEDTIME MRX1 PRN PRN Reason: Insomnia Allergies Allergies Allergy/AdvReac Type Severity Reaction Status Date / Time haloperidol (From Haldol) Allergy Unknown Verified 05/05/25 21:19 olanzapine AdvReac Unknown Verified 05/05/25 18:47 Assessment & Plan Assessment & Plan (1) Severe recurrent major depression w/psychotic features, mood-congruent: Status: Acute Code(s): F33.3 - Major depressive disorder, recurrent, severe with psychotic symptoms (2) HTN (hypertension): Status: Acute Code(s): I10 - Essential (primary) hypertension (3) HLD (hyperlipidemia): Status: Acute Code(s): E78.5 - Hyperlipidemia, unspecified (4) Diabetes: Status: Acute Code(s): E11.9 - Type 2 diabetes mellitus without complications (5) GERD (gastroesophageal reflux disease): Status: Acute Code(s): K21.9 - Gastro-esophageal reflux disease without esophagitis (6) Catatonia associated with another mental disorder: Status: Acute Code(s): F06.1 - Catatonic disorder due to known physiological condition (7) Catatonia: Status: Acute Code(s): F06.1 - Catatonic disorder due to known physiological condition Plan HPI: patient is a 64-year-old Bengali speaking female with past psychiatric history significant for depression, an unspecified psychotic disorder and several prior inpatient psychiatric hospitalizations for treatment of the same. Her medical history is notable for hypertension, Grave's disease s/p treatment resulting in hypothyroidism now on replacement therapy, psoriasis, type 2 diabetes mellitus, vitamin D deficiency, and GERD. Patient initially presented to [facility] on 04/01/2025 on a section 21 from [facility] inpatient psychiatric facility for evaluation ofr altered mental status associated with mutism, refusing to eat and drink concerning for failure to thrive since she had initially arrived to [facility] on 03/30/2025. Information not obtained from patient d/t current clinical mental status. Most of information obtain from [facility] record. Formulation/clinical reasoning: change in mental status, not able to function, ? experience catatonia, fail to thrive, not eating/drinking with very little improvement for the past month. Given the above information, patient would benefit in [facility] environment for safety, ADL's assistant manager pt, medication management and possible a candidate for ECT treatment, and refer patient OP psychiatric services for aftercare. Hospital course: 05/05/25: per Discharge medication list from [facility]: Amitriptyline 50mg at HS Vitamin D 50,000 Unit weekly: need to verify last dose given Hydroxyzine 50mg PO TID PRN for anxiety Levothyrozine 50mg mcg daily at 0600 Ativan 0.5 mg TID and BID PRN for catatonia Metformin ER 750mg daily in the morning Omeprazole 20mg daily at 0630 Diabetic protocol Trazodone PRN for insomnia Risperidone, Congentin (d/t catatonia and can restart when it is resolved) and antihypertensive meds are on hold (no need as BP was stable) Plan Patient on 05-26 for safety d/t unsteady gait and fall risk Admitted to S1. Section 12B- not have capacity to sign in and do not want to be here. There is an affirmed HCP Discussed findings with HCP Labs and medication with hands on if needed approved by HCP Diagnostic Discharge planning Reason for continued inpatient stay Substantial Risk for: inability to function, rapid decompensation, med/psych decompensation and other (catatonia) Time Spent With Patient Time: Total time managing care of this patient today __40__ minutes.
[2025-05-09 16:29] LABS: Alanine Aminotransferase 29 U/L (0-31); Albumin Level 4.4 g/dL (3.5-5.0); Alkaline Phosphatase 78 U/L (39-117); Anion Gap 17 (12-20); Aspartate Amino Transferase 52 U/L (5-31); Blood Urea Nitrogen 31 mg/dL (9-16); Calcium 10.3 mg/dL (8.4-10.2); Carbon Dioxide 22 mmol/L (22-29); Chloride 107 mmol/L (96-108); Cholesterol 192 mg/dL (<200); Creatinine Clr Calc Pharmacy 40.7; Estimated Glomerular Filt Rate 48; HDL Cholesterol 59 mg/dL (>40); Potassium 4.0 mmol/L (3.3-5.1); Sodium 142 mmol/L (135-145); Total Protein 7.8 g/dL (6.5-8.0); Triglycerides 113 mg/dL (<150)
[2025-05-09 16:54] LABS: Folate 11.9 ng/mL (> or = 4.0); Vitamin B12 278 pg/mL (200-900)
--- NOTE | 2025-05-09 17:12 | PC.NURSE ---
Restraint Event Note 05/09/2025: Stat order of labs ordered by provider MD Haro. Pt refused to cooperate. Verbal explanations given multiple times but pt unable to cooperate due to mental status. Physical hold for 3 minutes done while pt was in bed. Labs obtained by phlebotomy. Unable to obtain VS after restraint. Pt moving independently. Skin warm and dry, intact. HCP Alma given explanation about restraint by special agent in charge Karen. MD Rangel aware.
[2025-05-09 17:40] LABS: Free T4 (Free Thyroxine) 0.60 ng/dL (0.71-1.85)
[2025-05-09 20:00] VITALS: RESP 16; TEMP 36.2
[2025-05-09 20:23] LABS: Glucose, Whole Blood 84 mg/dL (60-115)
[2025-05-09] MEDS: diazePAM 10 MG/2 ML CARTRIDGE 5 MG IM (20:55)
--- NOTE | 2025-05-10 02:27 | PC.NURSE ---
Pt is irritable and restless, placed self on the floor and was assisted off the floor with the assist of 2 staff and put back in bed. Apple juice and water offered but refused by the pt. Sharmila remains incontinence brief dry.
--- NOTE | 2025-05-10 03:49 | PC.NURSE ---
Pt is awake, placed herself on the floor and was hissing. Pt assisted off of the floor several times and back to bed mby staff.Sharmila drank 60 ml of apple juice. Pt remains with a 1:1.
[2025-05-10] MEDS: diazePAM 10 MG/2 ML CARTRIDGE 5 MG IM (08:04)
--- NOTE | 2025-05-10 10:19 | P.PNPSI_ITS ---
Subjective Subjective Date of Service: 05/10/25 Reason For Visit: Catatonia Subjective Notes: Conditional Voluntary Healthcare Proxy: Yes Interim History: Not eating or drinking, not taking medications. Spoke to HCP yesterday to update and for authorization for hands on for labs and medications due to patient's continued refusal of PO and continued catatonic status. A transfer to medical floor had been expected due to lack PO/hydration/need for medications/IV access and for monitoring. I believed this to be in process yesterday but I learnt that the transfer would only be considered if medical team accepted based on meeting criteria for medical necessity for an inpatient medical admission which was not felt to be the case, while psychiatric team sought to ensure patient could be consistently treated, hydrated, monitored and have nutritional support. It was noted that labs were not available then and upon receipt of results, they did not seem consistent with significant hydroelectrolytic imbalance. I was also informed Ativan was not an option thus patient had been ordered Valium IM. HCP provided authorization for remaining labs/medications with hands on as needed. I was told by RN coordinator that IM medications ordered with hands on if needed were not administered as nursing staff decided against enforcing because patient could become agitated/aggressive and hurt staff. I subsequently was told patient had received 2 doses of Valium IM, which was ordered after being informed in pharmacy of Ativan being unavailable bc of shortage. Lab work results had less severe findings than expected and medicine was not seeing need for transfer on the basis that she could be managed in the psychiatric floor. I mentioned to daughter/HCP that TSH noted to be elevated. According to HCP/daughter, with whom I spoke with briefly, patient was found to have elevated TSH at [facility] and an increase in medication was ordered there, maybe a week ago. Patient continues to exhibit symptoms of catatonic nature. Has had 2 IM doses of Diazepam w/o response. Complete record from her medical admission to [facility] not availableto psychiatrist, neither is that from [facility] where patient had been hospitalized briefly before going to [facility]. Medication Compliance: No Side effects from medications: No Attending Groups: No Review of Systems Acute medical concerns: Yes catatonia, poor PO intake, not taking medications Medical Review of Systems: unchanged Review of Systems: Ongoing catatonic symptoms, no intake, not following verbal instructions, rigid, resistant to allow passive movement Review of Systems Review of Systems Yes Unobtainable due to mental status Mental Status Exam Mental Status Exam Narrative: awake, appears alert, is wearing hospital attire, braided hair now in disarray, not responsive verbally, makes only brief eye contact, vacant stare, does not appear in physical distress flat facial expression, observed on floor, resistant to stay in bed, putting herself on the floor, today noted to be on all fours, resisting any attempt to direct. Patient does not appear physically in acute distress/uncomfortable or in pain. She looks at MD when name called and then looks away vacantly. Has not been accepting medication PO, including Ativan. Has not been eating. Catatonic presentation. Daughters have been asked to visit and to make attempts to have mother eat something. It is said patient respondds some to them. Continue on 05-26 for safety, unsteady and fall risk. Family mtg planned Diagnostics Vital Signs (24Hr): Vital Signs - 24 hr 05/09/25 20:00 Temperature 97.2 F Respiratory Rate 16 BMI result Body Mass Index 25.8 Labs 05/11/25 09:58 05/11/25 09:59 Labs: Laboratory Results - last 48 hr 05/09/25 05/09/25 05/09/25 06:54 15:47 15:48 WBC 9.1 RBC 3.79 L Hgb 11.3 L Hct 34.2 L MCV 90.2 MCH 29.8 MCHC 33.0 RDW 15.4 Plt Count 281 MPV 12.2 Immature Gran % (Auto) 0.3 Neut % (Auto) 67.1 Lymph % (Auto) 22.1 Hays % (Auto) 8.0 Eos % (Auto) 1.9 Baso % (Auto) 0.6 Lymph # (Auto) 2.0 Hays # (Auto) 0.7 Eos # (Auto) 0.2 Baso # (Auto) 0.1 Abs Immat Gran (auto) 0.03 Absolute Neuts (auto) 6.1 Absolute Nucleated RBC 0.000 Nucleated RBC % (auto) 0.0 ESR 51 H Sodium 142 Potassium 4.0 Chloride 107 Carbon Dioxide 22 Anion Gap 17 BUN 31 H Creatinine 1.13 Estim Creat Clear Calc 40.7 Estimated GFR 48 POC Glucose 80 Random Glucose 77 Estimat Average Glucose 108 Hemoglobin A1c % 5.4 Calcium 10.3 H Total Bilirubin 0.8 AST 52 H ALT 29 Alkaline Phosphatase 78 C-Reactive Protein 0.41 Total Protein 7.8 Albumin 4.4 Triglycerides 113 Cholesterol 192 LDL Cholesterol, Calc 111 H HDL Cholesterol 59 Vitamin B12 278 Folate 11.9 TSH 31.05 H Cancelled Free T4 0.60 L 05/09/25 20:17 WBC RBC Hgb Hct MCV MCH MCHC RDW Plt Count MPV Immature Gran % (Auto) Neut % (Auto) Lymph % (Auto) Hays % (Auto) Eos % (Auto) Baso % (Auto) Lymph # (Auto) Hays # (Auto) Eos # (Auto) Baso # (Auto) Abs Immat Gran (auto) Absolute Neuts (auto) Absolute Nucleated RBC Nucleated RBC % (auto) ESR Sodium Potassium Chloride Carbon Dioxide Anion Gap BUN Creatinine Estim Creat Clear Calc Estimated GFR POC Glucose 84 Random Glucose Estimat Average Glucose Hemoglobin A1c % Calcium Total Bilirubin AST ALT Alkaline Phosphatase C-Reactive Protein Total Protein Albumin Triglycerides Cholesterol LDL Cholesterol, Calc HDL Cholesterol Vitamin B12 Folate TSH Free T4 EKG EKG Comment: ordered Medications Medications Current Medications Acetaminophen (Acetaminophen 325 Mg Tablet) 650 mg PO Q6H PRN PRN Reason: Headache/Pain, Scale 1-10 Al Hydroxide/Mg Hydroxide (Magnesium Hydrox/Alum Hydrox 30 Ml Oral.Susp) 30 ml PO Q6H PRN PRN Reason: Heartburn/Nausea Aspirin (Aspirin Enteric Coated 81 Mg Tablet.) 81 mg PO DAILY [facility] Last Admin: 05/10/25 08:08 Dose: Not Given Clopidogrel Bisulfate (Clopidogrel Bisulfate 75 Mg Tablet) 75 mg PO DAILY [facility] Stop: 05/11/25 09:01 Last Admin: 05/10/25 08:09 Dose: Not Given Dextrose (Dextrose 50 % 25 Gm/50 Ml Syringe) 25 gm IVPUSH Q15M PRN; Protocol PRN Reason: per Hypoglycemia Standing Ord. Diazepam (Diazepam 10 Mg/2 Ml Cartridge) 2.5 mg IM TID [facility] Glucose (Glucose Gel 15 Gm Gel..Gram.) 15 gm PO Q15M PRN; Protocol PRN Reason: per Hypoglycemia Standing Ord. Insulin Human Lispro (Insulin Lispro 100 Unit/Ml 3 Ml Vial) 0 unit SUBCUT QIDACHS [facility]; Protocol On Hold: 05/09/25 17:08 Last Admin: 05/09/25 17:07 Dose: Not Given Levothyroxine Sodium (Levothyroxine Sodium 50 Mcg Tablet) 50 mcg PO DAILY@0600 [facility] Last Admin: 05/10/25 06:40 Dose: Not Given Lorazepam (Lorazepam 0.5 Mg Tablet) 0.5 mg PO TID [facility] Last Admin: 05/10/25 08:09 Dose: Not Given Lorazepam (Lorazepam 0.5 Mg Tablet) 0.5 mg PO TID PRN PRN Reason: AGITATION/ANXIETY/CATATONIA Magnesium Hydroxide (Milk Of Magnesia 30 Ml Oral.Susp) 30 ml PO DAILY PRN PRN Reason: Constipation Metformin HCl (Metformin Hcl Er 750 Mg Tab.Er.24h) 750 mg PO DAILY [facility] Last Admin: 05/10/25 08:09 Dose: Not Given Nicotine (Nicotine 21 Mg Patch.Td24) 21 mg TRANSDERMA DAILY PRN PRN Reason: nicotine craving Pantoprazole Sodium (Pantoprazole Sodium 20 Mg Tablet.Dr) 40 mg PO DAILY@0630 [facility] Last Admin: 05/10/25 06:41 Dose: Not Given Trazodone HCl (Trazodone Hcl 50 Mg Tablet) 50 mg PO BEDTIME PRN PRN Reason: Insomnia Allergies Allergies Allergy/AdvReac Type Severity Reaction Status Date / Time haloperidol (From Haldol) Allergy Unknown Verified 05/05/25 21:19 olanzapine AdvReac Unknown Verified 05/05/25 18:47 Assessment & Plan Assessment & Plan (1) Catatonia: Status: Acute Code(s): F06.1 - Catatonic disorder due to known physiological condition (2) Severe recurrent major depression w/psychotic features, mood-congruent: Status: Acute Code(s): F33.3 - Major depressive disorder, recurrent, severe with psychotic symptoms (3) HTN (hypertension): Status: Acute Code(s): I10 - Essential (primary) hypertension (4) HLD (hyperlipidemia): Status: Acute Code(s): E78.5 - Hyperlipidemia, unspecified (5) Diabetes: Status: Acute Code(s): E11.9 - Type 2 diabetes mellitus without complications (6) GERD (gastroesophageal reflux disease): Status: Acute Code(s): K21.9 - Gastro-esophageal reflux disease without esophagitis (7) Hypothyroidism: Status: Acute Code(s): E03.9 - Hypothyroidism, unspecified Plan HPI: patient is a 64-year-old Kinyarwanda speaking female with past psychiatric history significant for depression, an unspecified psychotic disorder and several prior inpatient psychiatric hospitalizations for treatment of the same. Her medical history is notable for hypertension, Grave's disease s/p treatment resulting in hypothyroidism now on replacement therapy, psoriasis, type 2 diabetes mellitus, vitamin D deficiency, and GERD. Patient initially presented to [facility] on 04/01/2025 on a section 21 from [facility] psychiatric facility for evaluation ofr altered mental status associated with mutism, refusing to eat and drink concerning for failure to thrive since she had initially arrived to [facility] on 03/30/2025. Information not obtained from patient d/t current clinical mental status. Most of information obtain from [facility] record. Formulation/clinical reasoning: change in mental status, not able to function, ? experience catatonia, fail to thrive, not eating/drinking with very little improvement for the past month. Given the above information, patient would benefit in [facility] environment for safety, ADL's social services assistant, medication management and possible a candidate for ECT treatment, and refer patient OP psychiatric services for aftercare. Hospital course: 05/05/25: per Discharge medication list from [facility]: Amitriptyline 50mg at HS Vitamin D 50,000 Unit weekly: need to verify last dose given Hydroxyzine 50mg PO TID PRN for anxiety Levothyrozine 50mg mcg daily at 0600 Ativan 0.5 mg TID and BID PRN for catatonia Metformin ER 750mg daily in the morning Omeprazole 20mg daily at 0630 Diabetic protocol Trazodone PRN for insomnia Risperidone, Congentin (d/t catatonia and can restart when it is resolved) and antihypertensive meds are on hold (no need as BP was stable) Plan Patient on 1-1 for safety d/t unsteady gait and fall risk Admitted to S1. Section 12B- not have capacity to sign in and do not want to be here. Work with treatment team to do collateral with family- HCP Contact the hospitalist regarding hospitalist consultation on admission: pending. Diagnostic Discharge planning 05/09 OK with hands on for labs and meds if needed per HCP--HCP is affirmed. 05/10 received 2 doses Diazepam IM with no response so far Reason for continued inpatient stay Substantial Risk for: inability to function, rapid decompensation, med/psych decompensation and other (catatonia, no eating/drinking/taking meds) Time Spent With Patient Time: Total time managing care of this patient today _45___ minutes.
--- NOTE | 2025-05-10 13:43 | PC.NURSE ---
Restraint Note: Patient uncooperative with lab draw. Physical restraint started at 1234 for 3 minutes. Patient tolerated well. skin warm and dry. No c/o pain. Labs obtained. Provider aware. Refused Vital signs.
[2025-05-10] MEDS: diazePAM 10 MG/2 ML CARTRIDGE 2.5 MG IM ×2 (14:44→21:32)
[2025-05-11 00:26] LABS: Glucose, Whole Blood 88 mg/dL (60-115)
--- NOTE | 2025-05-11 06:53 | PC.NURSE ---
Patient contineus to be uncooperative , refused all meds and fluids this shift, spent most of the shift resting on the floor. Patient was assisted several times off the floor to bed by staff but kept putting self back on the floor.
[2025-05-11 06:57] LABS: Glucose, Whole Blood 83 mg/dL (60-115)
[2025-05-11 08:00] VITALS: RESP 18; TEMP 36.1
[2025-05-11 10:02] LABS: MANUAL DIFF FLAG NO
--- NOTE | 2025-05-11 10:02 | P.PNIM_ITS ---
Subjective Subjective Date of Service: 05/11/25 Interval History: Patient is seen for follow up, per nursing has not been eating or drinking. Voided small amounts in brief. Patient has been spending a significant amount of time on the floor, places herself on the floor and then writhes around. Refusing to take any p.o. pushing staff away when they offer her food and fluid. Has not been taking any p.o. medications. Patient has scattered bruises on her arms and legs likely from placing herself on the floor. Her lungs are clear, heart rate regular. Has been refusing blood pressure checks. Review of Systems Unable to obtain review of systems due to catatonia. Physical Exam 2 Exam: Exam: Alert and oriented X3, calm and cooperative. Answers questions. Neuro: Moves all extremities. Resistant. Cardiac: S1 S2 RRR, No ectopy Pulmonary: Lungs clear to auscultation, No increased WOB. Abdominal: BS active in all 4 quadrants, no guarding or tenderness MSK: Strength 5/5 upper and lower extremities. Moves all extremities : Deferred Extremities: No edema in lower extremities Psych: Catatonic Skin: Warm and dry, Intact. Scattered bruised areas to legs and arms. Vital Signs: Vital Signs: Last Vital Signs Temp 96.9 F 05/11/25 08:00 Pulse 85 05/06/25 17:26 Resp 18 05/11/25 08:00 BP 135/82 05/06/25 17:26 Pulse Ox 97 05/06/25 17:26 O2 Del Method Room Air 05/06/25 17:26 BMI result Body Mass Index 25.8 Objective Data Active Medications Acetaminophen (Acetaminophen 325 Mg Tablet) 650 mg PO Q6H PRN PRN Reason: Headache/Pain, Scale 1-10 Al Hydroxide/Mg Hydroxide (Magnesium Hydrox/Alum Hydrox 30 Ml Oral.Susp) 30 ml PO Q6H PRN PRN Reason: Heartburn/Nausea Aspirin (Aspirin Enteric Coated 81 Mg Tablet.) 81 mg PO DAILY [facility] Last Admin: 05/11/25 09:24 Dose: Not Given Documented By: JULIO CESAR Non-Admin Reason: Patient Refused Dextrose (Dextrose 50 % 25 Gm/50 Ml Syringe) 25 gm IVPUSH Q15M PRN; Protocol PRN Reason: per Hypoglycemia Standing Ord. Glucose (Glucose Gel 15 Gm Gel..Gram.) 15 gm PO Q15M PRN; Protocol PRN Reason: per Hypoglycemia Standing Ord. Sodium Chloride (Ns) 1,000 mls @ 999 mls/hr IV .Q1H1M [facility] Stop: 05/11/25 11:00 Insulin Human Lispro (Insulin Lispro 100 Unit/Ml 3 Ml Vial) 0 unit SUBCUT QIDACHS [facility]; Protocol On Hold: 05/09/25 17:08 Last Admin: 05/09/25 17:07 Dose: Not Given Documented By: IVONNE Non-Admin Reason: Patient Refused Levothyroxine Sodium (Levothyroxine Sodium 50 Mcg Tablet) 50 mcg PO DAILY@0600 [facility] Last Admin: 05/11/25 06:47 Dose: Not Given Documented By: ELEAZAR Non-Admin Reason: Patient Refused Lorazepam (Lorazepam 1 Mg Tablet) 1 mg PO TID [facility] Lorazepam (Lorazepam 2 Mg/Ml Vial) 1 mg IVPUSH TID PRN PRN Reason: IF PATIENT REFUSES PO ATIVAN Magnesium Hydroxide (Milk Of Magnesia 30 Ml Oral.Susp) 30 ml PO DAILY PRN PRN Reason: Constipation Metformin HCl (Metformin Hcl Er 750 Mg Tab.Er.24h) 750 mg PO DAILY [facility] Last Admin: 05/11/25 09:24 Dose: Not Given Documented By: JULIO CESAR Non-Admin Reason: Patient Refused Nicotine (Nicotine 21 Mg Patch.Td24) 21 mg TRANSDERMA DAILY PRN PRN Reason: nicotine craving Pantoprazole Sodium (Pantoprazole Sodium 20 Mg Tablet.Dr) 40 mg PO DAILY@0630 [facility] Last Admin: 05/11/25 06:47 Dose: Not Given Documented By: ELEAZAR Non-Admin Reason: Patient Refused Trazodone HCl (Trazodone Hcl 50 Mg Tablet) 50 mg PO BEDTIME PRN PRN Reason: Insomnia Labs 05/11/25 09:58 05/11/25 09:59 Labs: Laboratory Results - last 24 hr 05/09/25 05/10/25 05/11/25 15:47 12:35 00:22 POC Glucose 88 Free T3 1.3 L Random Cortisol 16.8 Thyroid Peroxidase Ab 14 H 05/11/25 06:33 POC Glucose 83 Free T3 Random Cortisol Thyroid Peroxidase Ab Assessment and Plan (1) Catatonia associated with another mental disorder: Status: Acute Plan 64-year-old female with a past medical history listed below admitted to inpatient psychiatric unit for stabilization. Schizophrenia/catatonia/FTT Treatment per psychiatric team Plan to start IM Ativan Bolus IV fluids Type 2 diabetes Continue metformin 750 daily-declining medications Hemoglobin A1c 5.4 Hypothyroidism Has been refusing levothyroxine Start levothyroxine 25 mcg IV daily until patient is taking p.o. Recent TSH 31.05 Recheck in 1 week Hyperlipidemia Lipid panel acceptable range Subacute infarct Continue with Plavix in aspirin dual therapy for a total of 3 weeks Then continue aspirin daily- has been refusing We will need follow up with stroke clinic at [facility] upon discharge Thank you for allowing me to participate in the care of this patient. Will follow with you, please notify medical provider with any changes in condition or concerns. Quality Stroke Does the patient have a stroke diagnosis?: No VTE Prior VTE?: No VTE Risk Level:: Medical - low VTE Device Contraindication: Treatment Not Indicated VTE Drug Contraindication: Treatment Not Indicated
[2025-05-11 10:06] LABS: Hematocrit 37.0 % (37.0-47.0); Hemoglobin 12.1 g/dl (12.0-16.0); Imm Gran Abs Auto 0.02 X10*3/uL (0.00-0.03); Imm Gran Pct Auto 0.2 % (0.0-0.4); Lymphocytes Absolute Auto 2.2 X10*3/uL (1.2-4.9); Mean Corpuscular HGB Conc 32.7 g/dl (31.0-35.0); Mean Corpuscular Hemoglobin 30.3 pg (27.0-33.0); Mean Corpuscular Volume 92.5 fL (80.0-98.0); NRBC Abs Auto 0.000 X10*3/uL (0.0-0.012); NRBC Pct Auto 0.0 /100WBC (0.0-0.2); Platelet Count 278 X10*3/uL (160-400); Red Blood Count 4.00 X10*6/uL (4.20-5.50); White Blood Count 8.5 X10*3/uL (4.8-10.8)
[2025-05-11 10:30] LABS: Alanine Aminotransferase 31 U/L (0-31); Albumin Level 4.4 g/dL (3.5-5.0); Alkaline Phosphatase 79 U/L (39-117); Anion Gap 17 (12-20); Aspartate Amino Transferase 52 U/L (5-31); Blood Urea Nitrogen 42 mg/dL (9-16); Calcium 10.7 mg/dL (8.4-10.2); Carbon Dioxide 21 mmol/L (22-29); Chloride 107 mmol/L (96-108); Creatinine Clr Calc Pharmacy 37.1; Estimated Glomerular Filt Rate 44; Potassium 4.1 mmol/L (3.3-5.1); Sodium 141 mmol/L (135-145); Total Protein 8.0 g/dL (6.5-8.0)
[2025-05-11] MEDS: LORazepam 2 MG/ML VIAL IM (11:09)
--- NOTE | 2025-05-11 13:34 | PM.EVENT ---
Event Note Date of Service: 05/11/25 Event Note: Patients BUN, 42, CR 1.24 eGFR 44. No leukocytosis, No electrolyte imbalances. Per nursing patient voided large amount of urine. Second liter of fluids ordered. Labs in am. Time Spent With Patient Time: Total time managing care of this patient today ____ minutes.
--- NOTE | 2025-05-11 15:57 | PC.NURSE ---
IV fluids administered late d/t failed IV access. Johana Graf RN from [facility] was called who arrived at S1 and was able to successfully gain a 20g IV access in the LAC. Pt tolerated the insertion fair. Provider Yael Phelps aware of the late administration.
[2025-05-11 16:43] VITALS: BP 152/77; PULSE 86; RESP 18; TEMP 36.7; O2SAT 97
[2025-05-11] MEDS: LORazepam 2 MG/ML VIAL IVPUSH ×2 (16:44→21:06)
--- NOTE | 2025-05-11 18:33 | HO.PSYCHPN ---
Subjective Subjective Date of Service: 05/11/25 Reason For Visit: Catatonia Healthcare Proxy: Yes (affirmed) Medical Problems Affecting Mental Status: Yes Interim History: No response to IM Diazepam, Ativan was secured late evening but cannot be entered on CPOE, informed it has to be released and only pharmacy could order [place] care with hospitalist [employer] for and Drs. Barlow, Dr. Collier and Ankita. Ongoing communication during day as the issue of medical transfer and location of treatment ( vs [facility]) was in flux based on different opinions/factors in consideration. Informed S1 could provide IV Ativan without transfer to medicine. Reiterated the doctor's order to use hands on/physical hold if necessatry whic had been approved by HCP. Coordinated ordering with pharmacy and explained plan to nursing staff with added input from colleague Discussed also with medical hospitalist [employer] and Dr. Collier, received input from Dr. Arias and colleague E[facility] as in our joint opinion, hypothyroid state correction should be started give correlation with catatonia. Informed then thyroid replacement could be given IM in [facility] psych unit, but upon further exploration, it could not given need for specific monitoring. Attempts will be make to provide orally should we see improvement with IV ativan. Saw patient briefly x2, attempted to engage unsuccessfully. She was sitting up in bed, mute,motionless, muttering softly syllables. Met family for ~45 minutes in afternoon, both daughters (HCP's) present. They provided historical info and signed releases. Pt has admission with similar presentation in 2010 at [facility]. After 5 days or so, sent to [facility] for medical treatment, and from [facility] transfered to [facility] from Apr 2011 to may 29 2011. Dx from [facility] Conversive do Dx from [facility] said to be Psychosis Patient was not admitted psychiatrically until 2021 ([facility] [place] and lastly in March 2025 went to [facility] unit and after 3-4 days was transferred to [facility] where she remained medically admitted for > 1 month before transfer to [facility] [place] [place] Daughters indicate that current provider at [facility] had mentioned also that she could have a functional neurologi do presentation/psychosomatic issues at play. Educated family as to current working diagnoses and next steps in plan, as well as the possibility of somatoform condition was to be explored after other issues excluded. Patient began IV Ativan at 2 mg IV TID as was prescribed at time she was managed medically at [facility] Medication Compliance: No (given IM) Side effects from medications: No Attending Groups: No Review of Systems Acute medical concerns: Yes no PO intake, no urine, hypothyroidism untreated, requiring IM Diazepam with limited effect Medical Review of Systems: changed Review of Systems: no urine output was reported in AM Review of Systems Review of Systems unchanged except for newly reporetd lack of urine output (information passed to medical hospitalist/team Yes Unobtainable due to mental status Mental Status Exam Mental Status Exam Narrative: awake, alert, hair in disarray, non verbal, not following commands, does not appear physically in distress or pain. (+) PM retardation/mostly immobile, mutism and negativism Has not been accepting medication PO, including Ativan. Has not been eating. Catatonic presentation. Continues on 05-26 for safety, unsteady and fall risk. Diagnostics Vital Signs (24Hr): Vital Signs - 24 hr 05/11/25 08:00 05/11/25 16:43 Temperature 96.9 F 98.1 F Pulse Rate 86 Respiratory Rate 18 18 Blood Pressure 152/77 H Pulse Oximetry 97 Oxygen Delivery Method Room Air BMI result Body Mass Index 25.8 Labs 05/11/25 09:58 05/11/25 09:59 Labs: Laboratory Results - last 48 hr 05/09/25 05/09/25 05/10/25 15:47 20:17 12:35 WBC RBC Hgb Hct MCV MCH MCHC RDW Plt Count MPV Immature Gran % (Auto) Neut % (Auto) Lymph % (Auto) [place] % (Auto) Eos % (Auto) Baso % (Auto) Lymph # (Auto) [place] # (Auto) Eos # (Auto) Baso # (Auto) Abs Immat Gran (auto) Absolute Neuts (auto) Absolute Nucleated RBC Nucleated RBC % (auto) Sodium Potassium Chloride Carbon Dioxide Anion Gap BUN Creatinine Estim Creat Clear Calc Estimated GFR POC Glucose 84 Random Glucose Calcium Total Bilirubin AST ALT Alkaline Phosphatase Total Creatine Kinase C-Reactive Protein 0.41 Total Protein Albumin Free T3 1.3 L Random Cortisol 16.8 Thyroid Peroxidase Ab 14 H 05/11/25 05/11/25 05/11/25 00:22 06:33 09:58 WBC 8.5 RBC 4.00 L Hgb 12.1 Hct 37.0 MCV 92.5 MCH 30.3 MCHC 32.7 RDW 15.5 Plt Count 278 MPV 12.4 H Immature Gran % (Auto) 0.2 Neut % (Auto) 63.5 Lymph % (Auto) 25.4 [place] % (Auto) 7.1 Eos % (Auto) 3.1 Baso % (Auto) 0.7 Lymph # (Auto) 2.2 [place] # (Auto) 0.6 Eos # (Auto) 0.3 Baso # (Auto) 0.1 Abs Immat Gran (auto) 0.02 Absolute Neuts (auto) 5.4 Absolute Nucleated RBC 0.000 Nucleated RBC % (auto) 0.0 Sodium Potassium Chloride Carbon Dioxide Anion Gap BUN Creatinine Estim Creat Clear Calc Estimated GFR POC Glucose 88 83 Random Glucose Calcium Total Bilirubin AST ALT Alkaline Phosphatase Total Creatine Kinase C-Reactive Protein Total Protein Albumin Free T3 Random Cortisol Thyroid Peroxidase Ab 05/11/25 09:59 WBC RBC Hgb Hct MCV MCH MCHC RDW Plt Count MPV Immature Gran % (Auto) Neut % (Auto) Lymph % (Auto) [place] % (Auto) Eos % (Auto) Baso % (Auto) Lymph # (Auto) [place] # (Auto) Eos # (Auto) Baso # (Auto) Abs Immat Gran (auto) Absolute Neuts (auto) Absolute Nucleated RBC Nucleated RBC % (auto) Sodium 141 Potassium 4.1 Chloride 107 Carbon Dioxide 21 L Anion Gap 17 BUN 42 H Creatinine 1.24 Estim Creat Clear Calc 37.1 Estimated GFR 44 POC Glucose Random Glucose 81 Calcium 10.7 H Total Bilirubin 0.8 AST 52 H ALT 31 Alkaline Phosphatase 79 Total Creatine Kinase 507 H C-Reactive Protein Total Protein 8.0 Albumin 4.4 Free T3 Random Cortisol Thyroid Peroxidase Ab Medications Medications Current Medications Acetaminophen (Acetaminophen 325 Mg Tablet) 650 mg PO Q6H PRN PRN Reason: Headache/Pain, Scale 1-10 Al Hydroxide/Mg Hydroxide (Magnesium Hydrox/Alum Hydrox 30 Ml Oral.Susp) 30 ml PO Q6H PRN PRN Reason: Heartburn/Nausea Aspirin (Aspirin Enteric Coated 81 Mg Tablet.Dr) 81 mg PO DAILY [facility]UL Last Admin: 05/11/25 09:24 Dose: Not Given Dextrose (Dextrose 50 % 25 Gm/50 Ml Syringe) 25 gm IVPUSH Q15M PRN; Protocol PRN Reason: per Hypoglycemia Standing Ord. Glucose (Glucose Gel 15 Gm Gel..Gram.) 15 gm PO Q15M PRN; Protocol PRN Reason: per Hypoglycemia Standing Ord. Insulin Human Lispro (Insulin Lispro 100 Unit/Ml 3 Ml Vial) 0 unit SUBCUT QIDACHS [facility]; Protocol On Hold: 05/09/25 17:08 Last Admin: 05/09/25 17:07 Dose: Not Given Levothyroxine Sodium (Levothyroxine Sodium 50 Mcg Tablet) 50 mcg PO DAILY@0600 [facility] Last Admin: 05/11/25 06:47 Dose: Not Given Lorazepam (Lorazepam 2 Mg/Ml Vial) 2 mg IVPUSH TID PRN PRN Reason: IF PATIENT REFUSES PO ATIVAN Last Admin: 05/11/25 16:44 Dose: 2 mg Lorazepam (Lorazepam 1 Mg Tablet) 2 mg PO TID [facility] Last Admin: 05/11/25 16:00 Dose: Not Given Magnesium Hydroxide (Milk Of Magnesia 30 Ml Oral.Susp) 30 ml PO DAILY PRN PRN Reason: Constipation Metformin HCl (Metformin Hcl Er 750 Mg Tab.Er.24h) 750 mg PO DAILY [facility] Last Admin: 05/11/25 09:24 Dose: Not Given Nicotine (Nicotine 21 Mg Patch.Td24) 21 mg TRANSDERMA DAILY PRN PRN Reason: nicotine craving Pantoprazole Sodium (Pantoprazole Sodium 20 Mg Tablet.Dr) 40 mg PO DAILY@0630 [facility] Last Admin: 05/11/25 06:47 Dose: Not Given Trazodone HCl (Trazodone Hcl 50 Mg Tablet) 50 mg PO BEDTIME PRN PRN Reason: Insomnia Allergies Allergies Allergy/AdvReac Type Severity Reaction Status Date / Time haloperidol (From Haldol) Allergy Unknown Verified 05/05/25 21:19 olanzapine AdvReac Unknown Verified 05/05/25 18:47 Assessment & Plan Assessment & Plan (1) Catatonia: Status: Acute Code(s): F06.1 - Catatonic disorder due to known physiological condition (2) Severe recurrent major depression w/psychotic features, mood-congruent: Status: Acute Code(s): F33.3 - Major depressive disorder, recurrent, severe with psychotic symptoms (3) HTN (hypertension): Status: Acute Code(s): I10 - Essential (primary) hypertension (4) HLD (hyperlipidemia): Status: Acute Code(s): E78.5 - Hyperlipidemia, unspecified (5) Diabetes: Status: Acute Code(s): E11.9 - Type 2 diabetes mellitus without complications (6) GERD (gastroesophageal reflux disease): Status: Acute Code(s): K21.9 - Gastro-esophageal reflux disease without esophagitis (7) Hypothyroidism: Status: Acute Code(s): E03.9 - Hypothyroidism, unspecified Plan HPI: patient is a 64-year-old Amharic speaking female with past psychiatric history significant for depression, an unspecified psychotic disorder and several prior inpatient psychiatric hospitalizations for treatment of the same. Her medical history is notable for hypertension, Grave's disease s/p treatment resulting in hypothyroidism now on replacement therapy, psoriasis, type 2 diabetes mellitus, vitamin D deficiency, and GERD. Patient initially presented to [facility] on 04/01/2025 on a section 21 from [facility] psychiatric facility for evaluation ofr altered mental status associated with mutism, refusing to eat and drink concerning for failure to thrive since she had initially arrived to [facility] on 03/30/2025. Information not obtained from patient d/t current clinical mental status. Most of information obtain from [facility] record. Formulation/clinical reasoning: change in mental status, not able to function, ? experience catatonia, fail to thrive, not eating/drinking with very little improvement for the past month. 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 Hospital course: 05/05/25: per Discharge medication list from [facility]: Amitriptyline 50mg at HS Vitamin D 50,000 Unit weekly: need to verify last dose given Hydroxyzine 50mg PO TID PRN for anxiety Levothyrozine 50mg mcg daily at 0600 Ativan 0.5 mg TID and BID PRN for catatonia Metformin ER 750mg daily in the morning Omeprazole 20mg daily at 0630 Diabetic protocol Trazodone PRN for insomnia Risperidone, Congentin (d/t catatonia and can restart when it is resolved) and antihypertensive meds are on hold (no need as BP was stable) Plan Patient on 05-26 for safety d/t unsteady gait and fall risk Admitted to S1. Section 12B- not have capacity to sign in and do not want to be here. Work with treatment team to do collateral with family- HCP Contact the hospitalist regarding hospitalist consultation on admission: pending. Diagnostic Discharge planning 05/09 OK with hands on for labs and meds if needed per HCP--HCP is affirmed. 05/10 received 2 doses Diazepam IM with no response so far Reason for continued inpatient stay Substantial Risk for: inability to function, rapid decompensation and med/psych decompensation Time Spent With Patient Time: Total time managing care of this patient today ____ minutes.
--- NOTE | 2025-05-11 19:14 | P.PNPSI_ITS ---
Subjective Subjective Reason For Visit: Catatonia Diagnostics Vital Signs (24Hr): Vital Signs - 24 hr 05/11/25 08:00 05/11/25 16:43 Temperature 96.9 F 98.1 F Pulse Rate 86 Respiratory Rate 18 18 Blood Pressure 152/77 H Pulse Oximetry 97 Oxygen Delivery Method Room Air BMI result Body Mass Index 25.8 Labs 05/11/25 09:58 05/11/25 09:59 Labs: Laboratory Results - last 48 hr 05/09/25 05/09/25 05/10/25 15:47 20:17 12:35 WBC RBC Hgb Hct MCV MCH MCHC RDW Plt Count MPV Immature Gran % (Auto) Neut % (Auto) Lymph % (Auto) [place] % (Auto) Eos % (Auto) Baso % (Auto) Lymph # (Auto) [place] # (Auto) Eos # (Auto) Baso # (Auto) Abs Immat Gran (auto) Absolute Neuts (auto) Absolute Nucleated RBC Nucleated RBC % (auto) Sodium Potassium Chloride Carbon Dioxide Anion Gap BUN Creatinine Estim Creat Clear Calc Estimated GFR POC Glucose 84 Random Glucose Calcium Total Bilirubin AST ALT Alkaline Phosphatase Total Creatine Kinase C-Reactive Protein 0.41 Total Protein Albumin Free T3 1.3 L Random Cortisol 16.8 Thyroid Peroxidase Ab 14 H 05/11/25 05/11/25 05/11/25 00:22 06:33 09:58 WBC 8.5 RBC 4.00 L Hgb 12.1 Hct 37.0 MCV 92.5 MCH 30.3 MCHC 32.7 RDW 15.5 Plt Count 278 MPV 12.4 H Immature Gran % (Auto) 0.2 Neut % (Auto) 63.5 Lymph % (Auto) 25.4 [place] % (Auto) 7.1 Eos % (Auto) 3.1 Baso % (Auto) 0.7 Lymph # (Auto) 2.2 [place] # (Auto) 0.6 Eos # (Auto) 0.3 Baso # (Auto) 0.1 Abs Immat Gran (auto) 0.02 Absolute Neuts (auto) 5.4 Absolute Nucleated RBC 0.000 Nucleated RBC % (auto) 0.0 Sodium Potassium Chloride Carbon Dioxide Anion Gap BUN Creatinine Estim Creat Clear Calc Estimated GFR POC Glucose 88 83 Random Glucose Calcium Total Bilirubin AST ALT Alkaline Phosphatase Total Creatine Kinase C-Reactive Protein Total Protein Albumin Free T3 Random Cortisol Thyroid Peroxidase Ab 05/11/25 09:59 WBC RBC Hgb Hct MCV MCH MCHC RDW Plt Count MPV Immature Gran % (Auto) Neut % (Auto) Lymph % (Auto) [place] % (Auto) Eos % (Auto) Baso % (Auto) Lymph # (Auto) [place] # (Auto) Eos # (Auto) Baso # (Auto) Abs Immat Gran (auto) Absolute Neuts (auto) Absolute Nucleated RBC Nucleated RBC % (auto) Sodium 141 Potassium 4.1 Chloride 107 Carbon Dioxide 21 L Anion Gap 17 BUN 42 H Creatinine 1.24 Estim Creat Clear Calc 37.1 Estimated GFR 44 POC Glucose Random Glucose 81 Calcium 10.7 H Total Bilirubin 0.8 AST 52 H ALT 31 Alkaline Phosphatase 79 Total Creatine Kinase 507 H C-Reactive Protein Total Protein 8.0 Albumin 4.4 Free T3 Random Cortisol Thyroid Peroxidase Ab Medications Medications Current Medications Acetaminophen (Acetaminophen 325 Mg Tablet) 650 mg PO Q6H PRN PRN Reason: Headache/Pain, Scale 1-10 Al Hydroxide/Mg Hydroxide (Magnesium Hydrox/Alum Hydrox 30 Ml Oral.Susp) 30 ml PO Q6H PRN PRN Reason: Heartburn/Nausea Aspirin (Aspirin Enteric Coated 81 Mg Tablet.Dr) 81 mg PO DAILY [facility] Last Admin: 05/11/25 09:24 Dose: Not Given Dextrose (Dextrose 50 % 25 Gm/50 Ml Syringe) 25 gm IVPUSH Q15M PRN; Protocol PRN Reason: per Hypoglycemia Standing Ord. Glucose (Glucose Gel 15 Gm Gel..Gram.) 15 gm PO Q15M PRN; Protocol PRN Reason: per Hypoglycemia Standing Ord. Insulin Human Lispro (Insulin Lispro 100 Unit/Ml 3 Ml Vial) 0 unit SUBCUT QIDACHS [facility]; Protocol On Hold: 05/09/25 17:08 Last Admin: 05/09/25 17:07 Dose: Not Given Levothyroxine Sodium (Levothyroxine Sodium 50 Mcg Tablet) 50 mcg PO DAILY@0600 [facility] Last Admin: 05/11/25 06:47 Dose: Not Given Lorazepam (Lorazepam 2 Mg/Ml Vial) 2 mg IVPUSH TID PRN PRN Reason: IF PATIENT REFUSES PO ATIVAN Last Admin: 05/11/25 16:44 Dose: 2 mg Lorazepam (Lorazepam 1 Mg Tablet) 2 mg PO TID [facility] Last Admin: 05/11/25 16:00 Dose: Not Given Magnesium Hydroxide (Milk Of Magnesia 30 Ml Oral.Susp) 30 ml PO DAILY PRN PRN Reason: Constipation Metformin HCl (Metformin Hcl Er 750 Mg Tab.Er.24h) 750 mg PO DAILY [facility] Last Admin: 05/11/25 09:24 Dose: Not Given Nicotine (Nicotine 21 Mg Patch.Td24) 21 mg TRANSDERMA DAILY PRN PRN Reason: nicotine craving Pantoprazole Sodium (Pantoprazole Sodium 20 Mg Tablet.Dr) 40 mg PO DAILY@0630 [facility] Last Admin: 05/11/25 06:47 Dose: Not Given Trazodone HCl (Trazodone Hcl 50 Mg Tablet) 50 mg PO BEDTIME PRN PRN Reason: Insomnia Allergies Allergies Allergy/AdvReac Type Severity Reaction Status Date / Time haloperidol (From Haldol) Allergy Unknown Verified 05/05/25 21:19 olanzapine AdvReac Unknown Verified 05/05/25 18:47 Assessment & Plan Assessment & Plan (1) Catatonia: Status: Acute Code(s): F06.1 - Catatonic disorder due to known physiological condition (2) Severe recurrent major depression w/psychotic features, mood-congruent: Status: Acute Code(s): F33.3 - Major depressive disorder, recurrent, severe with psychotic symptoms (3) HTN (hypertension): Status: Acute Code(s): I10 - Essential (primary) hypertension (4) HLD (hyperlipidemia): Status: Acute Code(s): E78.5 - Hyperlipidemia, unspecified (5) Diabetes: Status: Acute Code(s): E11.9 - Type 2 diabetes mellitus without complications (6) GERD (gastroesophageal reflux disease): Status: Acute Code(s): K21.9 - Gastro-esophageal reflux disease without esophagitis (7) Hypothyroidism: Status: Acute Code(s): E03.9 - Hypothyroidism, unspecified Plan HPI: patient is a 64-year-old Burmese speaking female with past psychiatric history significant for depression, an unspecified psychotic disorder and several prior inpatient psychiatric hospitalizations for treatment of the same. Her medical history is notable for hypertension, Grave's disease s/p treatment resulting in hypothyroidism now on replacement therapy, psoriasis, type 2 diabetes mellitus, vitamin D deficiency, and GERD. Patient initially presented to [facility] on 04/01/2025 on a section 21 from [facility] inpatient psychiatric facility for evaluation ofr altered mental status associated with mutism, refusing to eat and drink concerning for failure to thrive since she had initially arrived to [facility] on 03/30/2025. Information not obtained from patient d/t current clinical mental status. Most of information obtain from [facility] record. Formulation/clinical reasoning: change in mental status, not able to function, ? experience catatonia, fail to thrive, not eating/drinking with very little improvement for the past month. Given the above information, patient would benefit in [place] environment for safety, ADL's assistant import manager, medication management and possible a candidate for ECT treatment, and refer patient OP psychiatric services for aftercare. Hospital course: 05/05/25: per Discharge medication list from [facility]: Amitriptyline 50mg at HS Vitamin D 50,000 Unit weekly: need to verify last dose given Hydroxyzine 50mg PO TID PRN for anxiety Levothyrozine 50mg mcg daily at 0600 Ativan 0.5 mg TID and BID PRN for catatonia Metformin ER 750mg daily in the morning Omeprazole 20mg daily at 0630 Diabetic protocol Trazodone PRN for insomnia Risperidone, Congentin (d/t catatonia and can restart when it is resolved) and antihypertensive meds are on hold (no need as BP was stable) Plan Patient on 1 for safety d/t unsteady gait and fall risk Admitted to S1. Section 12B- not have capacity to sign in and do not want to be here. Work with treatment team to do collateral with family- HCP Contact the hospitalist regarding hospitalist consultation on admission: pending. Diagnostic Discharge planning 05/09 OK with hands on for labs and meds if needed per HCP--HCP is affirmed. 05/10 received 2 doses Diazepam IM with no response so far Time Spent With Patient Time: Total time managing care of this patient today ____ minutes.
[2025-05-11 20:00] VITALS: TEMP 36.3
[2025-05-11 21:28] LABS: Glucose, Whole Blood 138 mg/dL (60-115)
--- NOTE | 2025-05-11 21:30 | PC.NURSE ---
HS PO Ativan 2 mg offered/refused/wasted, back up Ativan 2 mg administered via IV as ordered, will continue to monitor
[2025-05-12] MEDS: 0.9 % Sodium Chloride Flush 5 ML SYRINGE IVFLUSH ×3 (00:07→16:53)
[2025-05-12 05:46] LABS: Glucose, Whole Blood 64 mg/dL (60-115)
[2025-05-12 06:32] LABS: Glucose, Whole Blood 102 mg/dL (60-115)
--- NOTE | 2025-05-12 09:19 | HO.PSYCHPN ---
Subjective Subjective Date of Service: 05/12/25 Reason For Visit: Catatonia Subjective Notes: Conditional Voluntary Healthcare Proxy: Yes Interim History: Pt slept 7hrs. She received IV ativan 2mg- pt seen 30 minutes after this. Pt continued to present as mute, with negativism, staring. RN attempted to give oral levothyroxine, but she covered her face and blocked nurse with her arms as RN attempted to put medication in her mouth. She is not rolling in the floor, need to monitor psychomotor retardation as may now need DVT prophylaxis is continues to see retardation. Mental Status Exam Mental Status Exam Narrative: Appearance: wearing hospital gown, lying in bed, staring, mute Behavior: mute Mood: unable to assess Affect: constricted. SI: unable to assess HI: unable to assess VH/AH: may be Delusions: unable to assess Insight/judgment: impaired x2. Diagnostics Vital Signs (24Hr): Vital Signs - 24 hr 05/11/25 16:43 05/11/25 20:00 Temperature 98.1 F 97.3 F Pulse Rate 86 Respiratory Rate 18 Blood Pressure 152/77 H Pulse Oximetry 97 Oxygen Delivery Method Room Air BMI result Body Mass Index 25.8 Labs 05/12/25 11:05 05/12/25 11:05 Labs: Laboratory Results - last 48 hr 05/09/25 05/10/25 05/11/25 15:47 12:35 00:22 WBC RBC Hgb Hct MCV MCH MCHC RDW Plt Count MPV Immature Gran % (Auto) Neut % (Auto) Lymph % (Auto) [place] % (Auto) Eos % (Auto) Baso % (Auto) Lymph # (Auto) [place] # (Auto) Eos # (Auto) Baso # (Auto) Abs Immat Gran (auto) Absolute Neuts (auto) Absolute Nucleated RBC Nucleated RBC % (auto) Sodium Potassium Chloride Carbon Dioxide Anion Gap BUN Creatinine Estim Creat Clear Calc Estimated GFR POC Glucose 88 Random Glucose Calcium Total Bilirubin AST ALT Alkaline Phosphatase Total Creatine Kinase Total Protein Albumin Free T3 1.3 L Random Cortisol 16.8 Thyroid Peroxidase Ab 14 H 05/11/25 05/11/25 05/11/25 06:33 09:58 09:59 WBC 8.5 RBC 4.00 L Hgb 12.1 Hct 37.0 MCV 92.5 MCH 30.3 MCHC 32.7 RDW 15.5 Plt Count 278 MPV 12.4 H Immature Gran % (Auto) 0.2 Neut % (Auto) 63.5 Lymph % (Auto) 25.4 [place] % (Auto) 7.1 Eos % (Auto) 3.1 Baso % (Auto) 0.7 Lymph # (Auto) 2.2 [place] # (Auto) 0.6 Eos # (Auto) 0.3 Baso # (Auto) 0.1 Abs Immat Gran (auto) 0.02 Absolute Neuts (auto) 5.4 Absolute Nucleated RBC 0.000 Nucleated RBC % (auto) 0.0 Sodium 141 Potassium 4.1 Chloride 107 Carbon Dioxide 21 L Anion Gap 17 BUN 42 H Creatinine 1.24 Estim Creat Clear Calc 37.1 Estimated GFR 44 POC Glucose 83 Random Glucose 81 Calcium 10.7 H Total Bilirubin 0.8 AST 52 H ALT 31 Alkaline Phosphatase 79 Total Creatine Kinase 507 H Total Protein 8.0 Albumin 4.4 Free T3 Random Cortisol Thyroid Peroxidase Ab 05/11/25 05/12/25 05/12/25 21:25 05:41 06:23 WBC RBC Hgb Hct MCV MCH MCHC RDW Plt Count MPV Immature Gran % (Auto) Neut % (Auto) Lymph % (Auto) [place] % (Auto) Eos % (Auto) Baso % (Auto) Lymph # (Auto) [place] # (Auto) Eos # (Auto) Baso # (Auto) Abs Immat Gran (auto) Absolute Neuts (auto) Absolute Nucleated RBC Nucleated RBC % (auto) Sodium Potassium Chloride Carbon Dioxide Anion Gap BUN Creatinine Estim Creat Clear Calc Estimated GFR POC Glucose 138 H 64 102 Random Glucose Calcium Total Bilirubin AST ALT Alkaline Phosphatase Total Creatine Kinase Total Protein Albumin Free T3 Random Cortisol Thyroid Peroxidase Ab Medications Medications Current Medications Acetaminophen (Acetaminophen 325 Mg Tablet) 650 mg PO Q6H PRN PRN Reason: Headache/Pain, Scale 1-10 Al Hydroxide/Mg Hydroxide (Magnesium Hydrox/Alum Hydrox 30 Ml Oral.Susp) 30 ml PO Q6H PRN PRN Reason: Heartburn/Nausea Aspirin (Aspirin Enteric Coated 81 Mg Tablet.Dr) 81 mg PO DAILY RAUL Last Admin: 05/11/25 09:24 Dose: Not Given Dextrose (Dextrose 50 % 25 Gm/50 Ml Syringe) 25 gm IVPUSH Q15M PRN; Protocol PRN Reason: per Hypoglycemia Standing Ord. Glucose (Glucose Gel 15 Gm Gel..Gram.) 15 gm PO Q15M PRN; Protocol PRN Reason: per Hypoglycemia Standing Ord. Levothyroxine Sodium (Levothyroxine Sodium 50 Mcg Tablet) 50 mcg PO DAILY COUNTS INCLUDE 234 BEDS AT THE [facility] Lorazepam (Lorazepam 2 Mg/Ml Vial) 2 mg IVPUSH TID PRN PRN Reason: IF PATIENT REFUSES PO ATIVAN Last Admin: 05/11/25 21:06 Dose: 2 mg Lorazepam (Lorazepam 1 Mg Tablet) 2 mg PO TID COUNTS INCLUDE 234 BEDS AT THE [facility] Last Admin: 05/11/25 21:02 Dose: Not Given Magnesium Hydroxide (Milk Of Magnesia 30 Ml Oral.Susp) 30 ml PO DAILY PRN PRN Reason: Constipation Nicotine (Nicotine 21 Mg Patch.Td24) 21 mg TRANSDERMA DAILY PRN PRN Reason: nicotine craving Sodium Chloride (0.9 % Sodium Chloride Flush 5 Ml Syringe) 5 ml IVFLUSH QSHIFT COUNTS INCLUDE 234 BEDS AT THE [facility] Last Admin: 05/12/25 00:07 Dose: 5 ml Trazodone HCl (Trazodone Hcl 50 Mg Tablet) 50 mg PO BEDTIME PRN PRN Reason: Insomnia Allergies Allergies Allergy/AdvReac Type Severity Reaction Status Date / Time haloperidol (From Haldol) Allergy Unknown Verified 05/05/25 21:19 olanzapine AdvReac Unknown Verified 05/05/25 18:47 Assessment & Plan Assessment & Plan (1) Catatonia: Status: Acute Code(s): F06.1 - Catatonic disorder due to known physiological condition (2) Severe recurrent major depression w/psychotic features, mood-congruent: Status: Acute Code(s): F33.3 - Major depressive disorder, recurrent, severe with psychotic symptoms (3) HTN (hypertension): Status: Acute Code(s): I10 - Essential (primary) hypertension (4) HLD (hyperlipidemia): Status: Acute Code(s): E78.5 - Hyperlipidemia, unspecified (5) Diabetes: Status: Acute Code(s): E11.9 - Type 2 diabetes mellitus without complications (6) GERD (gastroesophageal reflux disease): Status: Acute Code(s): K21.9 - Gastro-esophageal reflux disease without esophagitis (7) Hypothyroidism: Status: Acute Code(s): E03.9 - Hypothyroidism, unspecified Plan HPI: patient is a 64-year-old Amharic speaking female with past psychiatric history significant for depression, an unspecified psychotic disorder and several prior inpatient psychiatric hospitalizations for treatment of the same. Her medical history is notable for hypertension, Grave's disease s/p treatment resulting in hypothyroidism now on replacement therapy, psoriasis, type 2 diabetes mellitus, vitamin D deficiency, and GERD. Patient initially presented to [facility] on 04/01/2025 on a section 21 from [facility] psychiatric facility for evaluation ofr altered mental status associated with mutism, refusing to eat and drink concerning for failure to thrive since she had initially arrived to [facility] on 03/30/2025. Information not obtained from patient d/t current clinical mental status. Most of information obtain from [facility] record. Formulation/clinical reasoning: change in mental status, not able to function, ? experience catatonia, fail to thrive, not eating/drinking with very little improvement for the past month. 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 Hospital course: 05/05/25: per Discharge medication list from [facility]: Amitriptyline 50mg at HS Vitamin D 50,000 Unit weekly: need to verify last dose given Hydroxyzine 50mg PO TID PRN for anxiety Levothyrozine 50mg mcg daily at 0600 Ativan 0.5 mg TID and BID PRN for catatonia Metformin ER 750mg daily in the morning Omeprazole 20mg daily at 0630 Diabetic protocol Trazodone PRN for insomnia Risperidone, Congentin (d/t catatonia and can restart when it is resolved) and antihypertensive meds are on hold (no need as BP was stable) Plan Patient on 1-1 for safety d/t unsteady gait and fall risk Admitted to S1. Section 12B- not have capacity to sign in and do not want to be here. Work with treatment team to do collateral with family- HCP Contact the hospitalist regarding hospitalist consultation on admission: pending. Diagnostic Discharge planning 05/09 OK with hands on for labs and meds if needed per HCP--HCP is affirmed. 05/10 received 2 doses Diazepam IM with no response so far 05/12 On IV ativan 2mg TID, will increase to QID IV. Had 15% of dinner, no other oral intake on 05/11. Daily or every other day labs to monitor renal function electrolytes as pt has minimal if any oral intake. daily documentation of oral intake. May need to consider parentenal nutrition (its been 7 days with very minimal oral intake). Ordered business continuity planning director consult if continue with psychomotor retardation (initially rolling on the floor) and in bed- need to start DVT prophylaxis. Maintain bed elevated to prevent aspiration pneumonia Consult medical clearance for ECT/ ECT consult ordered. Attempt to give oral levothyroxine after IV ativan administration (today even after IV ativan presenting with negativism, mute) d/c metformin- given A1C of 5%. D/C lispro for now. CMP on 05/12 no electrolyte abnormality, BUN 33, Cr 0.93 (down from 1.24 on 05/11/25), creatinine clearance 49.5, mild elevation in AST/ALT (47/32). Reason for continued inpatient stay Substantial Risk for: inability to function Time Spent With Patient Time: Total time managing care of this patient today ____ minutes.
[2025-05-12] MEDS: LORazepam 2 MG/ML VIAL IVPUSH ×4 (09:44→21:38)
[2025-05-12 11:10] LABS: MANUAL DIFF FLAG NO
[2025-05-12 11:22] LABS: Glucose, Whole Blood 84 mg/dL (60-115)
[2025-05-12 11:26] LABS: Hematocrit 35.1 % (37.0-47.0); Hemoglobin 11.4 g/dl (12.0-16.0); Imm Gran Abs Auto 0.02 X10*3/uL (0.00-0.03); Imm Gran Pct Auto 0.3 % (0.0-0.4); Lymphocytes Absolute Auto 2.2 X10*3/uL (1.2-4.9); Mean Corpuscular HGB Conc 32.5 g/dl (31.0-35.0); Mean Corpuscular Hemoglobin 29.7 pg (27.0-33.0); Mean Corpuscular Volume 91.4 fL (80.0-98.0); NRBC Abs Auto 0.000 X10*3/uL (0.0-0.012); NRBC Pct Auto 0.0 /100WBC (0.0-0.2); Platelet Count 277 X10*3/uL (160-400); Red Blood Count 3.84 X10*6/uL (4.20-5.50); White Blood Count 6.6 X10*3/uL (4.8-10.8)
--- NOTE | 2025-05-12 11:39 | HO.ECTCONS_ITS ---
History of Present Illness Data of Consult Service Date: 05/12/25 Primary Care Provider: Unknown Physician HPI Reason for consult: ECT consult 64-year-old Wolof-speaking female with past medical history significant for depression, unspecified psychotic disorder as well as hypertension, Graves disease SP treatment now hypothyroidism on replacement therapy, psoriasis, type 2 diabetes, vitamin-D deficiency and GERD. She initially presented to [facility] on 04/01/2025 from [facility] for evaluation of altered mental status associated with mutism refusing to eat and drink and failure to thrive since arriving to [facility] in March. She was discharged from [facility] on 05/05 2025 with Ativan t.i.d. scheduled and b.i.d. for catatonia. Since arrival to the unit patient has not been taking p.o. meds including Ativan resulting in catatonic state. Per daughter report who is healthcare proxy patient had a catatonic state 13 years ago and 3 years ago, both improved with medications. Since arriving to the unit patient continues to be failure to thrive in a catatonic state with refusal of foods and fluids. Patient given 2 L IV fluids yesterday due to lack of p.o. intake, with improvement in her BUN and creatinine. Patient continues to refuse foods and fluids. Patient is being seen due to evaluation for ECT treatment. Per daughter Alma, patient has never had ECT treatment in the past. No reports of GILL, orthopnea, PND. ?Recent subacute infarct at [facility]. Daughter denies any space- occupying intracranial lesion, or TBI.? Daughter denies any significant cardiac history including CAD, NM, or heart arrhythmias.? Recent echo within normal limits, recent CTA head and neck within normal limits. No severe pulmonary conditions.? Daughter denies history PAD or bleeding disorders. Daughter denies any previous complications from anesthesia.? EKG refused by patient.? Patient seen and examined, no apparent distress. Review of Systems 2 Review of Systems: Unable to provide review of symptoms. Yes Unobtainable due to mental status [facility] Medical History (Updated 05/10/25 @ 10:38 by Segun Haro MD) Catatonia Hypothyroidism HLD (hyperlipidemia) GERD (gastroesophageal reflux disease) Diabetes HTN (hypertension) Severe recurrent major depression w/psychotic features, mood-congruent Family History (Updated 09/09/21 @ 11:59 by Slava Rodriguez MD) Other HTN (hypertension) Social History Household Members: Children Housing: House Do you presently have visiting nurse or other home services: No Comment: Patient is 1:1 for safety Patient Tobacco Use Status: Never used Tobacco Smoked in Last 30 Days: No e-Cigarette/Vaping Use: Never Used Patient Interested in Nicotine Replacement: No Patient Given Instructions on How to Stop Smoking: No Second Hand Smoke Exposure: No Currently Displaying Signs/Symptoms of Drug Intoxication Withdrawal: No Have you been hit, kicked, punched, or otherwise hurt by someone within the past year? If so, by whom?: No Do you feel safe in your current relationship?: No Current Relationship Is there a partner from a previous relationship who is making you feel unsafe now?: No Are you made to feel afraid or neglected: No Advance Directives: No Advance Directives Information Provided: No Do you have thoughts of harming others: None Do you have a plan to hurt others: No Plan Recently lost weight without trying: Unsure Eating poorly because of decreased appetite: No Nutrition Risks: No Nutritional Risk Patient : No : No Poor oral hygiene: No service: No Sexual orientation: Unable to collect Meds Allergies Allergy/AdvReac Type Severity Reaction Status Date / Time haloperidol (From Haldol) Allergy Unknown Verified 05/05/25 21:19 olanzapine AdvReac Unknown Verified 05/05/25 18:47 Active Medications: Current Medications Acetaminophen (Acetaminophen 325 Mg Tablet) 650 mg PO Q6H PRN PRN Reason: Headache/Pain, Scale 1-10 Al Hydroxide/Mg Hydroxide (Magnesium Hydrox/Alum Hydrox 30 Ml Oral.Susp) 30 ml PO Q6H PRN PRN Reason: Heartburn/Nausea Aspirin (Aspirin Enteric Coated 81 Mg Tablet.) 81 mg PO DAILY RAUL Last Admin: 05/12/25 10:17 Dose: Not Given Dextrose (Dextrose 50 % 25 Gm/50 Ml Syringe) 25 gm IVPUSH Q15M PRN; Protocol PRN Reason: per Hypoglycemia Standing Ord. Glucose (Glucose Gel 15 Gm Gel..Gram.) 15 gm PO Q15M PRN; Protocol PRN Reason: per Hypoglycemia Standing Ord. Levothyroxine Sodium (Levothyroxine Sodium 50 Mcg Tablet) 50 mcg PO DAILY RAUL Lorazepam (Lorazepam 2 Mg/Ml Vial) 2 mg IVPUSH TID PRN PRN Reason: IF PATIENT REFUSES PO ATIVAN Last Admin: 05/12/25 09:44 Dose: 2 mg Lorazepam (Lorazepam 1 Mg Tablet) 2 mg PO QID RAUL Magnesium Hydroxide (Milk Of Magnesia 30 Ml Oral.Susp) 30 ml PO DAILY PRN PRN Reason: Constipation Nicotine (Nicotine 21 Mg Patch.Td24) 21 mg TRANSDERMA DAILY PRN PRN Reason: nicotine craving Sodium Chloride (0.9 % Sodium Chloride Flush 5 Ml Syringe) 5 ml IVFLUSH QSHIFT RAUL Last Admin: 05/12/25 09:45 Dose: 5 ml Trazodone HCl (Trazodone Hcl 50 Mg Tablet) 50 mg PO BEDTIME PRN PRN Reason: Insomnia Home Medications ?Medication ?Instructions ?Recorded ?Confirmed ?Last Taken ?Type Ativan 0.5 mg PO BID PRN 05/05/25 1 07/06/24 Unknown History AGITATION/ANXIETY/CATATONIA Ativan 0.5 mg PO TID 05/05/2505/05 Unknown History aspirin 81 mg PO DAILY 05/05/2504/25 Unknown History ergocalciferol (vitamin D2) 50,000 units PO QWEEK 04/2505/05/25 Unknown History Physical Exam 2 Vital Signs and Narrative: Vital Signs: Last Vital Signs Temp 97.3 F 05/11/25 20:00 Pulse 86 05/11/25 16:43 Resp 18 05/11/25 16:43 BP 152/77 H 05/11/25 16:43 Pulse Ox 97 05/11/25 16:43 O2 Del Method Room Air 05/11/25 16:43 BMI result Body Mass Index 25.8 Alert, follows simple commands. Neuro: CN II-X11 intact, no obvious neurological deficits EYES: PERRLA, EOM intact Cardiac: S1 S2 RRR, No ectopy Pulmonary: Lungs clear to auscultation, No increased WOB. Abdominal: BS active in all 4 quadrants, no guarding or tenderness MSK: Strength 5/5 upper and lower extremities. : Deferred Extremities: No edema in lower extremities Psych: Quiet and cooperative with exam. Skin: Warm and dry, Intact Results Labs 05/12/25 11:05 05/12/25 11:05 Labs: Laboratory Results - last 24 hr 05/11/25 05/12/25 05/12/25 21:25 05:41 06:23 MCV MCH MCHC RDW Plt Count MPV Immature Gran % (Auto) Neut % (Auto) Lymph % (Auto) [place] % (Auto) Eos % (Auto) Baso % (Auto) Lymph # (Auto) [place] # (Auto) Eos # (Auto) Baso # (Auto) Abs Immat Gran (auto) Absolute Neuts (auto) Absolute Nucleated RBC Nucleated RBC % (auto) POC Glucose 138 H 64 102 05/12/25 05/12/25 11:05 11:17 MCV 91.4 MCH 29.7 MCHC 32.5 RDW 15.8 Plt Count 277 MPV 12.1 Immature Gran % (Auto) 0.3 Neut % (Auto) 54.9 Lymph % (Auto) 33.5 [place] % (Auto) 6.1 Eos % (Auto) 4.7 H Baso % (Auto) 0.5 Lymph # (Auto) 2.2 [place] # (Auto) 0.4 Eos # (Auto) 0.3 Baso # (Auto) 0.0 Abs Immat Gran (auto) 0.02 Absolute Neuts (auto) 3.6 Absolute Nucleated RBC 0.000 Nucleated RBC % (auto) 0.0 POC Glucose 84 Assessment and Plan (1) Catatonia associated with another mental disorder: Status: Acute Plan 64-year-old female with a past medical history listed below admitted to inpatient psychiatric unit for stabilization. Patient is seen and examined for ECT clearance Schizophrenia/catatonia Treatment per psychiatric team Possible ECT treatments Patient receiving doses of Ativan, continues to refuse foods and fluids Type 2 diabetes Continue metformin 750 daily Hemoglobin A1c 5.4 Hypothyroidism Continue levothyroxine-has been refusing Patient status post Graves disease treatment, now on replacement therapy Upon discharge from [facility] TSH was 48.5, medication was adjusted at that time, now 31.05 Patient has not been taking her thyroid medicine, possibly since March when she 1st experienced catatonia Hyperlipidemia/HTN Lipids acceptable range. 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 Recent CTA head and neck with no major occlusion stenosis Echo with no acute findings, normal EF Statin management per primary care team, she will need follow up in stroke Clinic Will need aspirin indefinitely ECT risk stratification Family denies previous problems with anesthesia, has never had ECT RCRI 0 points, no further cardiac workup or treatment indicated at this time. EKG refused by patient Based on stated PMH, HPI, and physical exam, There are no obvious contraindications to the planned procedure. Thank you for allowing me to participate in the care of this patient. Will follow with you, please notify medical provider with any changes in condition or concerns.
[2025-05-12 11:43] LABS: Alanine Aminotransferase 32 U/L (0-31); Albumin Level 4.0 g/dL (3.5-5.0); Alkaline Phosphatase 72 U/L (39-117); Anion Gap 12 (12-20); Aspartate Amino Transferase 47 U/L (5-31); Blood Urea Nitrogen 33 mg/dL (9-16); Calcium 9.7 mg/dL (8.4-10.2); Carbon Dioxide 23 mmol/L (22-29); Chloride 109 mmol/L (96-108); Creatinine Clr Calc Pharmacy 49.5; Estimated Glomerular Filt Rate > 60; Potassium 3.4 mmol/L (3.3-5.1); Sodium 141 mmol/L (135-145); Total Protein 7.1 g/dL (6.5-8.0)
[2025-05-12] MEDS: Lactated Ringers 1,000 ML 999 ML IV (14:38)
[2025-05-12 16:41] LABS: Glucose, Whole Blood 61 mg/dL (60-115)
[2025-05-12 16:41] LABS: Glucose, Whole Blood 191 mg/dL (60-115)
[2025-05-12 20:00] VITALS: BP 144/83; PULSE 83; RESP 16; TEMP 36.3; O2SAT 96
--- NOTE | 2025-05-12 20:48 | HO.BHRESTREX ---
Behavioral Restraint Exam Behavioral Health Restraint Exam Type of Restraint: Physical Hold (1234 to 1237 on 05/10) Reason for Restraint: Substantial Risk Medical Concerns for Restraint: No medical concerns, pt w/o acute inj / no noted resp/VS abnormalities Behavioral Assessment / Plan: Concerns / further recommendations, explain below: Comment: May require future hols for medically indispensable management---HCP approval obtained
[2025-05-12 21:33] LABS: Glucose, Whole Blood 67 mg/dL (60-115)
[2025-05-12 22:36] LABS: Glucose, Whole Blood 167 mg/dL (60-115)
[2025-05-13] MEDS: 0.9 % Sodium Chloride Flush 5 ML SYRINGE IVFLUSH
[2025-05-13 05:41] LABS: Glucose, Whole Blood 70 mg/dL (60-115)
[2025-05-13 06:55] LABS: Glucose, Whole Blood 151 mg/dL (60-115)
[2025-05-13 08:00] VITALS: BP 125/84; PULSE 86; RESP 16; TEMP 36.3
[2025-05-13 08:34] LABS: Glucose, Whole Blood 144 mg/dL (60-115)
--- NOTE | 2025-05-13 09:39 | PC.NURSE ---
Pt.'s IV not functional. RN awaiting assistance for a new IV start. Pt refused all PO medications. Provider aware of late Ativan IV push administration and PO med refusal.
[2025-05-13 09:51] LABS: MANUAL DIFF FLAG NO
[2025-05-13 09:53] LABS: Hematocrit 37.6 % (37.0-47.0); Hemoglobin 12.6 g/dl (12.0-16.0); Imm Gran Abs Auto 0.01 X10*3/uL (0.00-0.03); Imm Gran Pct Auto 0.1 % (0.0-0.4); Lymphocytes Absolute Auto 1.9 X10*3/uL (1.2-4.9); Mean Corpuscular HGB Conc 33.5 g/dl (31.0-35.0); Mean Corpuscular Hemoglobin 29.7 pg (27.0-33.0); Mean Corpuscular Volume 88.7 fL (80.0-98.0); NRBC Abs Auto 0.000 X10*3/uL (0.0-0.012); NRBC Pct Auto 0.0 /100WBC (0.0-0.2); Platelet Count 260 X10*3/uL (160-400); Red Blood Count 4.24 X10*6/uL (4.20-5.50); White Blood Count 6.9 X10*3/uL (4.8-10.8)
[2025-05-13 10:13] LABS: Anion Gap 14 (12-20); Blood Urea Nitrogen 17 mg/dL (9-16); Calcium 10.0 mg/dL (8.4-10.2); Carbon Dioxide 23 mmol/L (22-29); Chloride 104 mmol/L (96-108); Creatinine Clr Calc Pharmacy 52.9; Estimated Glomerular Filt Rate > 60; Potassium 3.7 mmol/L (3.3-5.1); Sodium 137 mmol/L (135-145)
[2025-05-13 10:33] VITALS: BMI 25.8
--- NOTE | 2025-05-13 10:36 | P.PNPSI_ITS ---
Subjective Subjective Date of Service: 05/13/25 Reason For Visit: Catatonia Interim History: not eating/drinking Diagnostics Vital Signs (24Hr): Vital Signs - 24 hr 05/12/25 20:00 05/13/25 08:00 Temperature 97.3 F 97.4 F Pulse Rate 83 86 Respiratory Rate 16 16 Blood Pressure 144/83 H 125/84 Pulse Oximetry 96 Oxygen Delivery Method Room Air BMI result Body Mass Index 25.8 Labs 05/13/25 09:30 05/13/25 09:30 Labs: Laboratory Results - last 48 hr 05/11/25 05/12/25 05/12/25 21:25 05:41 06:23 WBC RBC Hgb Hct MCV MCH MCHC RDW Plt Count MPV Immature Gran % (Auto) Neut % (Auto) Lymph % (Auto) Piatt % (Auto) Eos % (Auto) Baso % (Auto) Lymph # (Auto) Piatt # (Auto) Eos # (Auto) Baso # (Auto) Abs Immat Gran (auto) Absolute Neuts (auto) Absolute Nucleated RBC Nucleated RBC % (auto) Sodium Potassium Chloride Carbon Dioxide Anion Gap BUN Creatinine Estim Creat Clear Calc Estimated GFR POC Glucose 138 H 64 102 Random Glucose Calcium Total Bilirubin AST ALT Alkaline Phosphatase Total Protein Albumin 05/12/25 05/12/25 05/12/25 11:05 11:17 16:06 WBC 6.6 RBC 3.84 L Hgb 11.4 L Hct 35.1 L MCV 91.4 MCH 29.7 MCHC 32.5 RDW 15.8 Plt Count 277 MPV 12.1 Immature Gran % (Auto) 0.3 Neut % (Auto) 54.9 Lymph % (Auto) 33.5 Piatt % (Auto) 6.1 Eos % (Auto) 4.7 H Baso % (Auto) 0.5 Lymph # (Auto) 2.2 Piatt # (Auto) 0.4 Eos # (Auto) 0.3 Baso # (Auto) 0.0 Abs Immat Gran (auto) 0.02 Absolute Neuts (auto) 3.6 Absolute Nucleated RBC 0.000 Nucleated RBC % (auto) 0.0 Sodium 141 Potassium 3.4 Chloride 109 H Carbon Dioxide 23 Anion Gap 12 BUN 33 H Creatinine 0.93 Estim Creat Clear Calc 49.5 Estimated GFR > 60 POC Glucose 84 61 Random Glucose 82 Calcium 9.7 D Total Bilirubin 0.8 AST 47 H ALT 32 H Alkaline Phosphatase 72 Total Protein 7.1 Albumin 4.0 05/12/25 05/12/25 05/12/25 16:34 21:29 22:32 WBC RBC Hgb Hct MCV MCH MCHC RDW Plt Count MPV Immature Gran % (Auto) Neut % (Auto) Lymph % (Auto) Piatt % (Auto) Eos % (Auto) Baso % (Auto) Lymph # (Auto) Piatt # (Auto) Eos # (Auto) Baso # (Auto) Abs Immat Gran (auto) Absolute Neuts (auto) Absolute Nucleated RBC Nucleated RBC % (auto) Sodium Potassium Chloride Carbon Dioxide Anion Gap BUN Creatinine Estim Creat Clear Calc Estimated GFR POC Glucose 191 H 67 167 H Random Glucose Calcium Total Bilirubin AST ALT Alkaline Phosphatase Total Protein Albumin 05/13/25 05/13/25 05/13/25 05:34 06:51 08:27 WBC RBC Hgb Hct MCV MCH MCHC RDW Plt Count MPV Immature Gran % (Auto) Neut % (Auto) Lymph % (Auto) Piatt % (Auto) Eos % (Auto) Baso % (Auto) Lymph # (Auto) Piatt # (Auto) Eos # (Auto) Baso # (Auto) Abs Immat Gran (auto) Absolute Neuts (auto) Absolute Nucleated RBC Nucleated RBC % (auto) Sodium Potassium Chloride Carbon Dioxide Anion Gap BUN Creatinine Estim Creat Clear Calc Estimated GFR POC Glucose 70 151 H 144 H Random Glucose Calcium Total Bilirubin AST ALT Alkaline Phosphatase Total Protein Albumin 05/13/25 09:30 WBC 6.9 RBC 4.24 Hgb 12.6 Hct 37.6 MCV 88.7 MCH 29.7 MCHC 33.5 RDW 15.6 Plt Count 260 MPV 12.6 H Immature Gran % (Auto) 0.1 Neut % (Auto) 60.9 Lymph % (Auto) 27.8 Piatt % (Auto) 6.7 Eos % (Auto) 3.9 Baso % (Auto) 0.6 Lymph # (Auto) 1.9 Piatt # (Auto) 0.5 Eos # (Auto) 0.3 Baso # (Auto) 0.0 Abs Immat Gran (auto) 0.01 Absolute Neuts (auto) 4.2 Absolute Nucleated RBC 0.000 Nucleated RBC % (auto) 0.0 Sodium 137 Potassium 3.7 Chloride 104 Carbon Dioxide 23 Anion Gap 14 BUN 17 H Creatinine 0.87 Estim Creat Clear Calc 52.9 Estimated GFR > 60 POC Glucose Random Glucose 106 Calcium 10.0 Total Bilirubin AST ALT Alkaline Phosphatase Total Protein Albumin Medications Medications Current Medications Acetaminophen (Acetaminophen 325 Mg Tablet) 650 mg PO Q6H PRN PRN Reason: Headache/Pain, Scale 1-10 Al Hydroxide/Mg Hydroxide (Magnesium Hydrox/Alum Hydrox 30 Ml Oral.Susp) 30 ml PO Q6H PRN PRN Reason: Heartburn/Nausea Aspirin (Aspirin Enteric Coated 81 Mg Tablet.Dr) 81 mg PO DAILY [facility] Last Admin: 05/13/25 09:25 Dose: Not Given Dextrose (Dextrose 50 % 25 Gm/50 Ml Syringe) 25 gm IVPUSH Q15M PRN; Protocol PRN Reason: per Hypoglycemia Standing Ord. Last Admin: 05/13/25 06:16 Dose: 25 gm Glucose (Glucose Gel 15 Gm Gel..Gram.) 15 gm PO Q15M PRN; Protocol PRN Reason: per Hypoglycemia Standing Ord. Levothyroxine Sodium (Levothyroxine Sodium 50 Mcg Tablet) 50 mcg PO DAILY [facility] Last Admin: 05/13/25 09:25 Dose: Not Given Lorazepam (Lorazepam 1 Mg Tablet) 2 mg PO QID [facility] Last Admin: 05/13/25 09:25 Dose: Not Given Lorazepam (Lorazepam 2 Mg/Ml Vial) 2 mg IVPUSH QID PRN PRN Reason: IF PATIENT REFUSES PO ATIVAN Last Admin: 05/12/25 21:38 Dose: 2 mg Magnesium Hydroxide (Milk Of Magnesia 30 Ml Oral.Susp) 30 ml PO DAILY PRN PRN Reason: Constipation Nicotine (Nicotine 21 Mg Patch.Td24) 21 mg TRANSDERMA DAILY PRN PRN Reason: nicotine craving Sodium Chloride (0.9 % Sodium Chloride Flush 5 Ml Syringe) 5 ml IVFLUSH QSHIFT [facility] Last Admin: 05/13/25 00:00 Dose: 5 ml Trazodone HCl (Trazodone Hcl 50 Mg Tablet) 50 mg PO BEDTIME PRN PRN Reason: Insomnia Allergies Allergies Allergy/AdvReac Type Severity Reaction Status Date / Time haloperidol (From Haldol) Allergy Unknown Verified 05/05/25 21:19 olanzapine AdvReac Unknown Verified 05/05/25 18:47 Assessment & Plan Assessment & Plan (1) Catatonia associated with another mental disorder: Status: Acute Code(s): F06.1 - Catatonic disorder due to known physiological condition Time Spent With Patient Time: Total time managing care of this patient today ____ minutes.
--- NOTE | 2025-05-13 10:48 | MHC.CLN ---
CONSULT FOR PPN PATIENT WITH VERY POOR PO INTAKE DURING ADMISSION. REQUIRES NUTRITION/HYDRATION VIA PPN. COMMUNICATED WITH PROVIDER AND PHARMACY. RECOMMEND START PPN AT 40 ML PER HOUR TO PROVIDE 41 G PROTEIN, 96 G DEXTROSE, 490 KCALS. REPLETE LYTES NEEDED. CHECK TRIGLYCERIDES. FOLLOW WITH TEAM FOR PLAN OF CARE. SEE CLINICAL NUTRITION ASSESSMENT. RECOMMNED ADVANCE PPN TO MAX GOAL RATE ON 05/14: PPN AT 55 ML PER HOUR, ADD 65 G LIPIDS TO PROVIDE 56 G PROTEIN (1.23 G/KG IBW), 132 G DEXTROSE, 1323 TOTAL KCALS (29 KCALS/KG IBW). REPLETE LYTES NEEDED. RD AVAILABLE VIA TIGER TEXT OVER WEEKEND.
--- NOTE | 2025-05-13 11:16 | P.DS_ITS ---
DS: Providers Provider Date of admission: 05/05/25 18:40 Date of discharge: 05/13/25 Primary care physician: Unknown Physician Admitting clinician: Minoo Luciano Attending physician on admission: Sylvia Haro Consults: 05/05/25 19:24 Consult to Hospitalist Routine Comment: Consulting Provider: [facility] Hospitalists Reason For Exam: admission physical 05/12/25 11:30 Consult to Hospitalist Routine Comment: Consulting Provider: [facility] Hospitalists Reason For Exam: ect clearance 05/12/25 14:19 Consult to Psychiatry Routine Consulting Provider: Derick Turner Reason for consultation: ECT Has provider been notified: Yes 05/13/25 09:21 Consult to Hospitalist Routine Comment: DVT prophylaxis, long immobility, recc. bridal service sales and management Provider: [facility] Hospitalists Reason For Exam: DVT PROPHYLAXIS Attending physician on discharge: Sylvia Haro Discharging clinician: Sylvia Haro DS: Diagnosis Discharge Diagnosis (1) Catatonia associated with another mental disorder: Status: Acute DS: Medications Discharge Medications Home Medications: Home Medications ?Medication ?Instructions ?Recorded ?Confirmed aspirin 81 mg PO DAILY 05/05/2504/25 ergocalciferol (vitamin D2) 50,000 units PO QWEEK 04/2505/05/25 Previous Rx's ?Medication ?Instructions ?Recorded levothyroxine 50 mcg tablet 50 mcg PO DAILY #30 tabs 0 09/14/21 metformin 750 mg tablet,extended 750 mg PO DAILY #30 t abs 09/14/21 release 24 hr omeprazole 20 mg capsule,delayed 20 mg PO DAILY #30 ca ps 09/14/21 release lorazepam 1 mg tablet 2 mg (2 x 1 mg) PO QID #1 ta b 05/13/25 lorazepam 2 mg/mL injection 2 mg IVPUSH QID PRN IF PAT IENT 05/13/25 solution REFUSES PO ATIVAN #1 mL Mental Status Exam Mental Status Exam Narrative: Appearance: wearing hospital gown, lying in bed, staring, mute Behavior: mute Mood: unable to assess Affect: constricted. SI: unable to assess HI: unable to assess VH/AH: may be Delusions: unable to assess Insight/judgment: impaired x2. Data Data Completed and Pending Completed studies during hospitalization [Text1]: 05/06/25 05/09/25 05/09/25 11:35 06:54 15:47 WBC 9.1 RBC 3.79 L Hgb 11.3 L Hct 34.2 L MCV 90.2 MCH 29.8 MCHC 33.0 RDW 15.4 Plt Count 281 MPV 12.2 Immature Gran % (Auto) 0.3 Neut % (Auto) 67.1 Lymph % (Auto) 22.1 [place] % (Auto) 8.0 Eos % (Auto) 1.9 Baso % (Auto) 0.6 Lymph # (Auto) 2.0 [place] # (Auto) 0.7 Eos # (Auto) 0.2 Baso # (Auto) 0.1 Abs Immat Gran (auto) 0.03 Absolute Neuts (auto) 6.1 Absolute Nucleated RBC 0.000 Nucleated RBC % (auto) 0.0 ESR 51 H Sodium 142 Potassium 4.0 Chloride 107 Carbon Dioxide 22 Anion Gap 17 BUN 31 H Creatinine 1.13 Estim Creat Clear Calc 40.7 Estimated GFR 48 POC Glucose 110 80 Random Glucose 77 Estimat Average Glucose 108 Hemoglobin A1c % 5.4 Calcium 10.3 H Phosphorus Magnesium Total Bilirubin 0.8 AST 52 H ALT 29 Alkaline Phosphatase 78 Total Creatine Kinase C-Reactive Protein 0.41 Total Protein 7.8 Albumin 4.4 Triglycerides 113 Cholesterol 192 LDL Cholesterol, Calc 111 H HDL Cholesterol 59 Vitamin B12 278 Folate 11.9 TSH 31.05 H Free T4 0.60 L Free T3 Thyroglobulin Pending T4-Binding Globulin Pending Random Cortisol EDEN Screen Pending EDEN Titer Pending EDEN Titer 2 Pending EDEN Titer 3 Pending EDEN Pattern Pending EDEN Pattern 2 Pending EDEN Pattern 3 Pending Thyroglobulin Antibody Pending Thyroid Peroxidase Ab 14 H 05/09/25 05/09/25 05/10/25 15:48 20:17 12:35 WBC RBC Hgb Hct MCV MCH MCHC RDW Plt Count MPV Immature Gran % (Auto) Neut % (Auto) Lymph % (Auto) [place] % (Auto) Eos % (Auto) Baso % (Auto) Lymph # (Auto) [place] # (Auto) Eos # (Auto) Baso # (Auto) Abs Immat Gran (auto) Absolute Neuts (auto) Absolute Nucleated RBC Nucleated RBC % (auto) ESR Sodium Potassium Chloride Carbon Dioxide Anion Gap BUN Creatinine Estim Creat Clear Calc Estimated GFR POC Glucose 84 Random Glucose Estimat Average Glucose Hemoglobin A1c % Calcium Phosphorus Magnesium Total Bilirubin AST ALT Alkaline Phosphatase Total Creatine Kinase C-Reactive Protein Total Protein Albumin Triglycerides Cholesterol LDL Cholesterol, Calc HDL Cholesterol Vitamin B12 Folate TSH Cancelled Free T4 Free T3 1.3 L Thyroglobulin T4-Binding Globulin Random Cortisol 16.8 EDEN Screen EDEN Titer EDEN Titer 2 EDEN Titer 3 EDEN Pattern EDEN Pattern 2 EDEN Pattern 3 Thyroglobulin Antibody Thyroid Peroxidase Ab 05/11/25 05/11/25 05/11/25 00:22 06:33 09:58 WBC 8.5 RBC 4.00 L Hgb 12.1 Hct 37.0 MCV 92.5 MCH 30.3 MCHC 32.7 RDW 15.5 Plt Count 278 MPV 12.4 H Immature Gran % (Auto) 0.2 Neut % (Auto) 63.5 Lymph % (Auto) 25.4 [place] % (Auto) 7.1 Eos % (Auto) 3.1 Baso % (Auto) 0.7 Lymph # (Auto) 2.2 [place] # (Auto) 0.6 Eos # (Auto) 0.3 Baso # (Auto) 0.1 Abs Immat Gran (auto) 0.02 Absolute Neuts (auto) 5.4 Absolute Nucleated RBC 0.000 Nucleated RBC % (auto) 0.0 ESR Sodium Potassium Chloride Carbon Dioxide Anion Gap BUN Creatinine Estim Creat Clear Calc Estimated GFR POC Glucose 88 83 Random Glucose Estimat Average Glucose Hemoglobin A1c % Calcium Phosphorus Magnesium Total Bilirubin AST ALT Alkaline Phosphatase Total Creatine Kinase C-Reactive Protein Total Protein Albumin Triglycerides Cholesterol LDL Cholesterol, Calc HDL Cholesterol Vitamin B12 Folate TSH Free T4 Free T3 Thyroglobulin T4-Binding Globulin Random Cortisol EDEN Screen EDEN Titer EDEN Titer 2 EDEN Titer 3 EDEN Pattern EDEN Pattern 2 EDEN Pattern 3 Thyroglobulin Antibody Thyroid Peroxidase Ab 05/11/25 05/11/25 05/12/25 09:59 21:25 05:41 WBC RBC Hgb Hct MCV MCH MCHC RDW Plt Count MPV Immature Gran % (Auto) Neut % (Auto) Lymph % (Auto) [place] % (Auto) Eos % (Auto) Baso % (Auto) Lymph # (Auto) [place] # (Auto) Eos # (Auto) Baso # (Auto) Abs Immat Gran (auto) Absolute Neuts (auto) Absolute Nucleated RBC Nucleated RBC % (auto) ESR Sodium 141 Potassium 4.1 Chloride 107 Carbon Dioxide 21 L Anion Gap 17 BUN 42 H Creatinine 1.24 Estim Creat Clear Calc 37.1 Estimated GFR 44 POC Glucose 138 H 64 Random Glucose 81 Estimat Average Glucose Hemoglobin A1c % Calcium 10.7 H Phosphorus Magnesium Total Bilirubin 0.8 AST 52 H ALT 31 Alkaline Phosphatase 79 Total Creatine Kinase 507 H C-Reactive Protein Total Protein 8.0 Albumin 4.4 Triglycerides Cholesterol LDL Cholesterol, Calc HDL Cholesterol Vitamin B12 Folate TSH Free T4 Free T3 Thyroglobulin T4-Binding Globulin Random Cortisol EDEN Screen EDEN Titer EDEN Titer 2 EDEN Titer 3 EDEN Pattern EDEN Pattern 2 EDEN Pattern 3 Thyroglobulin Antibody Thyroid Peroxidase Ab 05/12/25 05/12/25 05/12/25 06:23 11:05 11:17 WBC 6.6 RBC 3.84 L Hgb 11.4 L Hct 35.1 L MCV 91.4 MCH 29.7 MCHC 32.5 RDW 15.8 Plt Count 277 MPV 12.1 Immature Gran % (Auto) 0.3 Neut % (Auto) 54.9 Lymph % (Auto) 33.5 [place] % (Auto) 6.1 Eos % (Auto) 4.7 H Baso % (Auto) 0.5 Lymph # (Auto) 2.2 [place] # (Auto) 0.4 Eos # (Auto) 0.3 Baso # (Auto) 0.0 Abs Immat Gran (auto) 0.02 Absolute Neuts (auto) 3.6 Absolute Nucleated RBC 0.000 Nucleated RBC % (auto) 0.0 ESR Sodium 141 Potassium 3.4 Chloride 109 H Carbon Dioxide 23 Anion Gap 12 BUN 33 H Creatinine 0.93 Estim Creat Clear Calc 49.5 Estimated GFR > 60 POC Glucose 102 84 Random Glucose 82 Estimat Average Glucose Hemoglobin A1c % Calcium 9.7 D Phosphorus Magnesium Total Bilirubin 0.8 AST 47 H ALT 32 H Alkaline Phosphatase 72 Total Creatine Kinase C-Reactive Protein Total Protein 7.1 Albumin 4.0 Triglycerides Cholesterol LDL Cholesterol, Calc HDL Cholesterol Vitamin B12 Folate TSH Free T4 Free T3 Thyroglobulin T4-Binding Globulin Random Cortisol EDEN Screen EDEN Titer EDEN Titer 2 EDEN Titer 3 EDEN Pattern EDEN Pattern 2 EDEN Pattern 3 Thyroglobulin Antibody Thyroid Peroxidase Ab 05/12/25 05/12/25 05/12/25 16:06 16:34 21:29 WBC RBC Hgb Hct MCV MCH MCHC RDW Plt Count MPV Immature Gran % (Auto) Neut % (Auto) Lymph % (Auto) [place] % (Auto) Eos % (Auto) Baso % (Auto) Lymph # (Auto) [place] # (Auto) Eos # (Auto) Baso # (Auto) Abs Immat Gran (auto) Absolute Neuts (auto) Absolute Nucleated RBC Nucleated RBC % (auto) ESR Sodium Potassium Chloride Carbon Dioxide Anion Gap BUN Creatinine Estim Creat Clear Calc Estimated GFR POC Glucose 61 191 H 67 Random Glucose Estimat Average Glucose Hemoglobin A1c % Calcium Phosphorus Magnesium Total Bilirubin AST ALT Alkaline Phosphatase Total Creatine Kinase C-Reactive Protein Total Protein Albumin Triglycerides Cholesterol LDL Cholesterol, Calc HDL Cholesterol Vitamin B12 Folate TSH Free T4 Free T3 Thyroglobulin T4-Binding Globulin Random Cortisol EDEN Screen EDEN Titer EDEN Titer 2 EDEN Titer 3 EDEN Pattern EDEN Pattern 2 EDEN Pattern 3 Thyroglobulin Antibody Thyroid Peroxidase Ab 05/12/25 05/13/25 05/13/25 22:32 05:34 06:51 WBC RBC Hgb Hct MCV MCH MCHC RDW Plt Count MPV Immature Gran % (Auto) Neut % (Auto) Lymph % (Auto) [place] % (Auto) Eos % (Auto) Baso % (Auto) Lymph # (Auto) [place] # (Auto) Eos # (Auto) Baso # (Auto) Abs Immat Gran (auto) Absolute Neuts (auto) Absolute Nucleated RBC Nucleated RBC % (auto) ESR Sodium Potassium Chloride Carbon Dioxide Anion Gap BUN Creatinine Estim Creat Clear Calc Estimated GFR POC Glucose 167 H 70 151 H Random Glucose Estimat Average Glucose Hemoglobin A1c % Calcium Phosphorus Magnesium Total Bilirubin AST ALT Alkaline Phosphatase Total Creatine Kinase C-Reactive Protein Total Protein Albumin Triglycerides Cholesterol LDL Cholesterol, Calc HDL Cholesterol Vitamin B12 Folate TSH Free T4 Free T3 Thyroglobulin T4-Binding Globulin Random Cortisol EDEN Screen EDEN Titer EDNE Titer 2 EDEN Titer 3 EDEN Pattern EDEN Pattern 2 EDEN Pattern 3 Thyroglobulin Antibody Thyroid Peroxidase Ab 05/13/25 05/13/25 08:27 09:30 WBC 6.9 RBC 4.24 Hgb 12.6 Hct 37.6 MCV 88.7 MCH 29.7 MCHC 33.5 RDW 15.6 Plt Count 260 MPV 12.6 H Immature Gran % (Auto) 0.1 Neut % (Auto) 60.9 Lymph % (Auto) 27.8 [place] % (Auto) 6.7 Eos % (Auto) 3.9 Baso % (Auto) 0.6 Lymph # (Auto) 1.9 [place] # (Auto) 0.5 Eos # (Auto) 0.3 Baso # (Auto) 0.0 Abs Immat Gran (auto) 0.01 Absolute Neuts (auto) 4.2 Absolute Nucleated RBC 0.000 Nucleated RBC % (auto) 0.0 ESR Sodium 137 Potassium 3.7 Chloride 104 Carbon Dioxide 23 Anion Gap 14 BUN 17 H Creatinine 0.87 Estim Creat Clear Calc 52.9 Estimated GFR > 60 POC Glucose 144 H Random Glucose 106 Estimat Average Glucose Hemoglobin A1c % Calcium 10.0 Phosphorus Pending Magnesium Pending Total Bilirubin AST ALT Alkaline Phosphatase Total Creatine Kinase C-Reactive Protein Total Protein Albumin Pending Triglycerides Cholesterol LDL Cholesterol, Calc HDL Cholesterol Vitamin B12 Folate TSH Free T4 Free T3 Thyroglobulin T4-Binding Globulin Random Cortisol EDEN Screen EDEN Titer EDEN Titer 2 EDEN Titer 3 EDEN Pattern EDEN Pattern 2 EDEN Pattern 3 Thyroglobulin Antibody Thyroid Peroxidase Ab DS: Summary Hospital Course Hospital Course: HPI: Patient transferred from [facility] medical floor following stay medical admission for 1 1/2 months. Info from [facility] [place] and family: 64-year-old [place]an speaking female with past psychiatric history significant for depression and unspecified psychotic disorder. Has several prior psychiatric and medical hospitalizations for treatment and at least one episode of similar characteristics (catatonia, bizarre behaviors, mutism...) a similar episode in 2010 culminating in medical admission from [facility] as well as medical history notable for hypertension, Grave's disease s/p treatment resulting in hypothyroidism now on replacement therapy, psoriasis, type 2 diabetes mellitus, vitamin D deficiency, and GERD, who initially presented to [facility] on 04/01/2025 on a section 21 from [facility] inpatient psychiatric facility for evaluation for altered mental status associated with mutism, refusing to eat and drink concerning for failure to thrive since she initially arrived on 03/30/2025. Pt seen in the ED with recs to -titrate Risperdal for psychosis and/for mood stabilization, pain close attention to any worsening of psychiatric condition and potential catatonia. Follow are some psychiatric consult progress notes from [facility]: 04/22: Patient remains disorganized with ongoing auditory hallucinations. She needs inpatient psychiatric admission for further psychiatric and medication stabilization. Currently, she is medically cleared and inpatient psychiatric bed search will be initiated. 04/26: Patient is disorganized, paranoid, and nonverbal. She is partially adherent with medications and oral intake is poor today. Recommend increasing Risperdal to 2 mg po bid. Inpatient psychiatric bed search active. She cannot leave AMA without psychiatric clearance. 04/27: Patient remains largely unchanged from yesterday. She is now refusing all oral medications and is mostly nonverbal, with poor oral intake. Efforts to contact her outpatient psychiatric medication provider are ongoing. Will complete [facility] and send to [facility]. Donald orders are needed to pursue more aggressive psychiatric treatment as the patient is treatment. She demonstrates poor insight and judgment secondary to her current mental status and currently lacks capacity to make medical decisions. HCPS have been invoked. 04/28: A multidisciplinary meeting was held today with the medical team, social work, and the patient's daughter/HCP (Alma) to discuss the patients ongoing clinical status. The patient shows signs consistent with catatonia, including mutism, unresponsiveness, and motor restlessness. She has been refusing oral medications and other treatment interventions. Given her clinical presentation and prior positive response to Ativan, recommend restarting Ativan for management of catatonia with additional PRN dosing as needed. The treatment plan was reviewed with the HCP, who expressed understanding and agreement. 04/29: Catatonia is improving since restarting Ativan and discontinuing Zyprexa. Johnson-Doug Catatonia Rating Scale score has decreased from 15 to 4 today. The patient is now verbal and calm. Oral intake remains low but she is eating when assisted by family. Recommend continuing Ativan orally as she is now taking oral medications. Also recommend decreasing Risperdal to 2 mg at bedtime, as she has previously done well on this dose and in the context of catatonia. 05/02: Patient is no longer catatonic and is seen this afternoon eating lunch and verbally responding. Her thought process is more goal-directed and she is able to make her needs known, however she continues to expresses paranoid delusions and intermittent auditory and visual hallucinations. Recommend decreasing Ativan as outlined below and continuing all other medications. Multidisciplinary team meeting with family is scheduled for tomorrow. Patient will need inpatient psychiatric hospitalization once medically appropriate. 05/03: On evaluation today, the patient is not responding verbally but did speak a few words to her daughter. She is not cooperating with the interview or allowing a physical exam. Recommend continuing scheduled Ativan for catatonia, with additional Ativan as needed for agitation or catatonic symptoms as outlined below. Hold Ativan if vital signs are unstable. Please avoid administering other antipsychotics, including Zyprexa or Haldol, for agitation, as these may worsen catatonia. Recommend holding the home medication Risperdal, as it may be contributing to the catatonic state, however the patient has responded well to this in the past, and can be restarted at a later time. Will hold Cogentin as there is no indication for it currently, and will discontinue hydroxyzine and trazodone prn due to limited benefit and potential burden on cognition. Continue constant geospatial program management officer for patient safety as appropriate. 05/04: Today, the patient is doing better than yesterday. She is speaking verbally, engaging in conversation, and wants to eat breakfast. Her catatonia is improving, likely due to holding Risperdal, intermittent use of Ativan, and no further use of additiona antipsychotics. Strongly recommend that the patient receive scheduled Ativan three times daily for catatonia. Oral Ativan should always be offered first with IV Ativan as an option if oral is refused. She also has as needed Ativan available for agitation, catatonia, or anxiety. Patient continues to experience significant fear related to paranoia and auditory hallucinations likely worsening as a result of holding Risperdal. Plan to r estart Risperdal at a lower dose and titrate slowly once her catatonia is better controlled. Prior to this admission, the patient was fully independent and working. She remains at high risk for hyperactive delirium and recommend involving geriatric medicine for additional input. Patient's daughters/HCPs are in agreement with this treatment plan. Continue to involve the patient's family in her ongoing care. Social work to schedule a family meeting for tomorrow. 05/05: Patient remains disorganized, paranoid, and continues to have auditory hallucinations. Catatonia is improving. Blood work from 05/03 shows improved kidney function. Per collateral information from the family, the patient is eating and drinking. Discussed with the medical team about discontinuing IVF if they are not necessary in order to help facilitate transfer of the patient to an inpatient psychiatric unit. Continue scheduled Ativan for catatonia with preference for oral route and the alternative route is intramuscular if patient refuses. Patient's daughter/HCP (Alma) is in agreement with the change in administration of Ativan and overall treatment plan. Patient arrived on the unit, unsteady gait, cooperative with skin checks with the presence of Javascript Developer. Patient is very slow to respond, not understand why she is here but states that she feels anxious. Patient says no when asked if she wants to be here to get treatment and to get better. Patient appears not able to comprehensive further questions regarding safety and how she feels. At this point, this provider does not able to get further information from patient. Medical record from [facility] reviewed and discharged medication list also reviewed and discussed with RN. Will continue with plans of medication from [facility] recommendation as patient has been there for over a month. Patient may be a good candidate for ECT. Most of information obtained from [facility] record. Patient is Alert and Awake, wearing hospital attire, braided hair, not able to identify her , do not know where she is, appears anxious, depression, flat affect, disorganization, thought blocked, and confused with limited speech even though she is not mute, slow to respond. Fair contact. Poor insight and impaired judgment. Not able to assess for SI/SIB/HI/AVH. No expression of safety. Not sure at this time if she is psychotic as patient is not communicated well. Do not make any delusions/paranoid statement. Need further assessment and observation. Placed on 1-1 or unsteady and fall risk until further assessment. Remain on section 12B. Will leave it to the attending to contact family for collateral. . Patient admitted to [facility] S1 Geriatric unit, family contacted to obtain history and authorization for treatment as she had a healthcare proxy affirmed by the court. Patient presented with mutism immobility, bizarre behaviors, not eating, not drinking, not responding to verbal instructions and not taking medications. She put herself on the floor and resisted attempts to get her up. When staff tried to place her on a chair or in bed, she repeatedly slid down back to the floor, so, walking on hands and kneesor laying down anr rolling. Family was consulted before starting IV fluids for hydration and obtaining lab work. They gave permission for ?hands on? if patient actively refused care. She required restraints (physical hold) to obtain blood for labs and give Iv fluids. Patient continued without p.o. intake, while her labs had improved likely as a result of intravenous hydration, the concern was the lack of nutrition. Consult was obtained for parenteral nutrition, which could not be provided in the psychiatric unit. Coordination with the med providers resulted in her transfer to medicine, where she would continue to be seen by the Psychiatry consult service. A consult had been placed already for ECT, which had been discussed with Dr. Turner. She also had a hospitalist consult to clear for ECT. Family/healthcare proxy gave permission for ECT and were made aware of the transfer. Time spent discussing smoking cessation with patient: 3 to 10 minutes (NONE patient catatonic) Status at Discharge Overall status at discharge: patient is not back to baseline Time Spent with Patient Time attestation: Total time managing care of this patient today __65__ minutes. Discharge Plan Discharge Anticipated Discharge Date/Time: 05/13/25 11:15 Patient Disposition: Xfer Acute Care Hospital Discharge Diagnosis: Catatonia Referrals: Physician,Unknown J [Primary Care Provider, Medical] - 1 Week Discharge Medications: New lorazepam 2 mg/mL Solution 2 mg IVPUSH QID PRN (Reason: IF PATIENT REFUSES PO ATIVAN) Qty: 1 0RF lorazepam 1 mg Tablet 2 mg PO QID Qty: 1 0RF Continued omeprazole 20 mg Capsule,Delayed Release(Dr/Ec) 20 mg PO DAILY Qty: 30 0RF metformin 750 mg Tablet Extended Release 24 Hr 750 mg PO DAILY Qty: 30 0RF Discontinued hydroxyzine HCl 50 mg Tablet 50 mg PO TID PRN (Reason: Anxiety) Qty: 30 0RF amitriptyline 50 mg Tablet 50 mg PO BEDTIME Qty: 30 0RF Ativan 0.5 mg PO TID Rx Instructions: hold BP <100/60, RR <16, AND sAo2 <92% Ativan 0.5 mg PO BID PRN (Reason: AGITATION/ANXIETY/CATATONIA) No Action levothyroxine 50 mcg tablet 50 mcg PO MOTUWETHFR@0600 Rx Instructions: take 1 tab M-F. Take 2 tabs on Sat and Sun levothyroxine 50 mcg Tablet 100 mcg PO SUSA@0600 aspirin 81 mg Tablet 81 mg PO DAILY ergocalciferol (vitamin D2) 1,250 mcg (50,000 unit) Capsule 1,250 mcg PO QWEEK Discharge Orders: Discharge Order (Routine); Ordered 05/13/25 Ordered By: Slava Rodriguez Diet: PER NUTRITION PPN Activity on Discharge: AMBULATE WITH ASSISTANCE IF ABLE Stand Alone Forms: Patient Portal Discharge page Print Language: Urdu Care Plan Goals: PATIENT TRANSFER TO MEDICINE FOR CATATONIA, NEED FOR PARENTERAL NUTRITION RECOMMEND ALSO THYROID REPLACEMENT Health Concerns: CATATONIA, NO PO INTAKE, PROLONGED IMMOBILITY Plan of Treatment: TRANSFERRED TO MEDICINE FOR MANAGEMENT COMPLICATIONS DUE TO CATATONIC STATE, INCL. NUTRITION Assessment: IN BED, IMMOBILE, poor ec, non verba, resistant when attempt to assess, withdraws arm l Discharge Date/Time: 05/13/25 13:39
[2025-05-13 11:25] LABS: Albumin Level 4.2 g/dL (3.5-5.0); Magnesium 2.1 mg/dL (1.6-2.6)
[2025-05-13 12:21] LABS: Thyroglobulin 1.5; Thyroglobulin Antibodies <1
[2025-05-13 12:23] LABS: Glucose, Whole Blood 70 mg/dL (60-115)
--- NOTE | 2025-05-13 13:05 | HO.BHRESEX_ITS ---
Behavioral Restraint Exam Behavioral Health Restraint Exam Type of Restraint: Physical Hold Reason for Restraint: Substantial Risk (due to medical severity and possible accidental needle puncture) Medical Concerns for Restraint: No medical concerns, pt w/o acute inj / no noted resp/VS abnormalities (stemming from physical hold) If exam took place greater than one hour after restraint please explain:: patient with catatonia, not eating/drinking and unable to provide tx. Affirmed HCP informed and approved dx/tx interventions including hands on if it became necessary. Hold required for medical reasons to get labs/IV site for medication administration. Part of hold witnessed by MD entering order. Behavioral Assessment / Plan: Concerns / further recommendations, explain below: Comment: Patient is medically compromised, has been receiving IV medications and requiring physical hold episodically for dx and treatment of catatonic state which has not resolved with tx provided in psychiatric unit. She is now requiring parenteral nutrition and provision of medical care beyond that available in S1. Restraint forms (physical hold initiated 05/13/25 at 1215) and order entered. Patient's HCP has been contacted on ongoing basis to get approval for interventions which she has provided. Patient actively resisted attempt to gain her cooperation to get IV access for treatment with IV Ativan and blood for labs. She began to firmly withdraw her arm, requiring a hold for attempt by blueprint reader to find vein, which proved unsuccessful. [facility] form for restrain physical hold initiation and assessment at 12:15 pm completed
--- NOTE | 2025-05-13 14:32 | PC.NURSE ---
Pt lost her IV access during Ativan IV push. This RN let provider know and she ordered new access to be placed. Two different RN's, one without ultrasound guidance and one with, attempted, and neither one was successful at placing the new access. During the attempt with the ultrasound guidance, pt was very rigid in her upper extremities and needed assistance to straighten and hold her arm so she was given a physical hold. No injuries occurred due to this hold.
--- NOTE | 2025-05-15 19:28 | PM.PSYCN ---
History of Present Illness Date of Service: 05/13/25 Chief Complaint: Catatonia Reason for Consult: ect consult for catatonia Requesting physician: Segun Haro Discussed with referring provider: Yes Sources of Information: patient interviewed and chart reviewed Additional Sources of Information: Case discussed with main healthcare proxy reviewed risks benefits with ECT questions answered in informed consent obtained HPI Narrative: History obtained from extensive review of records. Case reviewed with Dr. Haro and also with psychiatric wealth management consultant who saw the patient on the medical floor at [facility]. Patient is a 64-year-old female who was initially admitted to [facility] and was then transferred to [facility] secondary to lack of intake, mutism had originally been admitted with depression and psychosis. Patient eventually had a partial response to intravenous Ativan which was ultimately changed to p.o. lorazepam. ECT was recommended but was resisted by the patient's healthcare proxy is which are her daughters. She has had 1 prior episode like this in the past. Patient was referred for additional psychiatric care to [facility] from the medical floor at [facility]. The patient had an agitated catatonia was resistant to p.o. medication and refusing generally food and fluids. She is being transferred to the medical floor at [facility] on the day of this evaluation secondary to agitation marked limited intake of food and fluids and not maintaining intravenous access. Dr. Haro has talked with the healthcare proxy regarding ECT and they are wanting to proceed at this point. This was confirmed with this contract writer and procedure and risks discussed. Patient will be on intravenous Ativan and fluid replacement. There is consideration of nutrition intravenously which is mother recent for transferred to give TPN Past Psychiatric History: IP: This is the first [facility]; Hx of [place] ~4 years ago with transfer to [place] OP: New referral to [facility]. Also, [facility] SA: Denies [facility] Medical History (Updated 05/10/25 @ 10:38 by Segun Haro MD) Catatonia Hypothyroidism HLD (hyperlipidemia) GERD (gastroesophageal reflux disease) Diabetes HTN (hypertension) Severe recurrent major depression w/psychotic features, mood-congruent Family History: Denies Social History: Raised by parents in [place]. 13 siblings, 7 have , 3 sisters 3 brothers living To [place] age [age] years. on 09/03/21. Hx of one year of college-education major. 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 Electronically signed by: Ahmet Crockett MD 05/13/2025 01:20 PM [facility] Medications Allergies Allergies Allergy/AdvReac Type Severity Reaction Status Date / Time haloperidol (From Haldol) Allergy Unknown Verified 05/05/25 21:19 olanzapine AdvReac Unknown Verified 05/05/25 18:47 Assessment & Plan Assessment & Plan (1) Severe recurrent major depression w/psychotic features, mood-congruent: Status: Acute Code(s): F33.3 - Major depressive disorder, recurrent, severe with psychotic symptoms (2) Catatonia associated with another mental disorder: Status: Acute Code(s): F06.1 - Catatonic disorder due to known physiological condition (3) HTN (hypertension): Status: Acute Code(s): I10 - Essential (primary) hypertension (4) HLD (hyperlipidemia): Status: Acute Code(s): E78.5 - Hyperlipidemia, unspecified (5) Diabetes: Status: Acute Code(s): E11.9 - Type 2 diabetes mellitus without complications (6) Hypothyroidism: Status: Acute Code(s): E03.9 - Hypothyroidism, unspecified Plan Patient's chart thoroughly reviewed reviewed with psychiatrist from [facility] who described the patient's progress [facility]. No significant contraindications the use of ECT no major cardiac or pulmonary choose patient has diabetes hypothyroidism. Informed consent has been obtain from the healthcare proxy and ECT ordered. Continue Ativan consideration to use of flumazenil prior to ECT monitor response to intravenous lorazepam EKG med consultation labs reviewed. Case also discussed with Dr. Rodriguez and Yael Castellanos np Total time managing care of this patient today 60____ minutes.
[2025-05-18 11:14] LABS: Anti Nuclear Antibody Screen NEGATIVE
== END 2025-05-13 13:39 | disposition short-term general hospital (02) | DRG 885 ==
PROVIDERS: Internal Medicine; Nurse Practitioner Family; Social Worker; Admitting Provider Psychiatry & Neurology Forensic Psychiatry; Visit Provider Psychiatry & Neurology Forensic Psychiatry
DX: F33.3 Major depressive disorder, recurrent, severe with psychotic symptoms (principal); F06.1 Catatonic disorder due to known physiological condition; E03.9 Hypothyroidism, unspecified; I10 Essential (primary) hypertension; E78.5 Hyperlipidemia, unspecified; Z78.1 Physical restraint status; E11.9 Type 2 diabetes mellitus without complications; K21.9 Gastro-esophageal reflux disease without esophagitis; Z79.890 Hormone replacement therapy; Z79.899 Other long term (current) drug therapy
CPT/HCPCS: 36415; 71046; 80048; 80053; 80061; 82040; 82533; 82550; 82607; 82746; 82947; 83036; 83735; 84100; 84432; 84439; 84442; 84443; 84481; 85025; 85652; 86038; 86140; 86376; 86800; J2060; J3360

== ENCOUNTER 2025-05-05 18:40 | Outpatient (BNV) | payer OTHER, SELFPAY | END 2025-05-13 13:07 | PROVIDERS: Admitting Provider Psychiatry & Neurology Forensic Psychiatry; Visit Provider Radiology Diagnostic Radiology | DX: R05.9 Cough, unspecified (principal) | CPT/HCPCS: 71046 ==

== ENCOUNTER → 2025-05-05 18:40 | Outpatient (BNV) | payer OTHER, SELFPAY | PROVIDERS: Admitting Provider Psychiatry & Neurology Forensic Psychiatry; Visit Provider Psychiatry & Neurology Psychiatry | DX: F33.3 Major depressive disorder, recurrent, severe with psychotic symptoms (principal); F06.1 Catatonic disorder due to known physiological condition; I10 Essential (primary) hypertension; E78.5 Hyperlipidemia, unspecified; E11.9 Type 2 diabetes mellitus without complications; E03.9 Hypothyroidism, unspecified | CPT/HCPCS: 99222 ==

== ENCOUNTER → 2025-05-05 18:40 | Outpatient (BNV) | payer OTHER, SELFPAY | PROVIDERS: Admitting Provider Psychiatry & Neurology Forensic Psychiatry; Visit Provider Nurse Practitioner Psychiatric/Mental Health | DX: F33.3 Major depressive disorder, recurrent, severe with psychotic symptoms (principal); I10 Essential (primary) hypertension; E78.5 Hyperlipidemia, unspecified; E11.9 Type 2 diabetes mellitus without complications; K21.9 Gastro-esophageal reflux disease without esophagitis | CPT/HCPCS: 90792 ==

== ENCOUNTER → 2025-05-05 18:40 | Outpatient (BNV) | payer OTHER, SELFPAY | PROVIDERS: Admitting Provider Psychiatry & Neurology Forensic Psychiatry; Visit Provider Nurse Practitioner Family | DX: F06.1 Catatonic disorder due to known physiological condition (principal) | CPT/HCPCS: 99221; 99222; 99231; 99499 ==

== ENCOUNTER 2025-05-13 13:53 | Outpatient (BNV) | payer OTHER, SELFPAY | END 2025-05-16 08:07 | PROVIDERS: Admitting Provider Internal Medicine; Visit Provider Internal Medicine Cardiovascular Disease | DX: Z01.818 Encounter for other preprocedural examination (principal); R94.31 Abnormal electrocardiogram [ECG] [EKG] | CPT/HCPCS: 93010 ==

== ENCOUNTER → 2025-05-13 13:53 | Outpatient (BNV) | payer OTHER, SELFPAY | PROVIDERS: Admitting Provider Internal Medicine; Visit Provider Psychiatry & Neurology Psychiatry | DX: F06.1 Catatonic disorder due to known physiological condition (principal); F33.3 Major depressive disorder, recurrent, severe with psychotic symptoms; I10 Essential (primary) hypertension; E78.5 Hyperlipidemia, unspecified; E11.9 Type 2 diabetes mellitus without complications; K21.9 Gastro-esophageal reflux disease without esophagitis; E03.9 Hypothyroidism, unspecified | CPT/HCPCS: 99232; 99233 ==

== ENCOUNTER → 2025-05-13 13:53 | Outpatient (BNV) | payer OTHER, SELFPAY | PROVIDERS: Admitting Provider Internal Medicine; Visit Provider Internal Medicine | DX: F06.1 Catatonic disorder due to known physiological condition (principal) | CPT/HCPCS: 99222; 99232; 99233; 99499 ==